=== PATIENT | female | born 1980 | race Two or more races ===

== ENCOUNTER 2021-03-27 18:23 | Emergency (ER) | payer MEDICAID, OTHER ==
[~2021-03-27] VITALS: Ht 160 cm; Wt 73.0 kg
[2021-03-27] MEDS ORDERED: SODIUM CHLORIDE 0.9% 1,000 ML IV ONE (18:30)
[2021-03-27 19:27] LABS: Urine Bacteria NONE SEEN /hpf (None Seen); Urine Blood 1+ /uL (Negative); Urine Specific Gravity 1.033 (1.001-1.035); Urine WBC 32 /hpf (0 - 5)
[2021-03-27] MEDS ORDERED: InsuLIN REG 1unit/0.01ml Soln (100units/ml) IV ONE (19:30)
[2021-03-27 22:09] LABS: Basophils # (auto) 0 10 ^3/uL (0-0.2); Basophils % (auto) 0.5 % (0.0-2.0); Eosinophils # (auto) 0.1 10 ^3/uL (0-0.8); Eosinophils % (auto) 1.6 % (0.0-7.0); Hematocrit 47.6 % (36.0-46.0); Hemoglobin 15.6 g/dL (12.2-16.2); Lymphocytes % (auto) 41.6 % (10.0-50.0); Mean Corpuscular Hemoglobin 30.3 pg (28.0-32.0); Mean Corpuscular Hgb Conc. 32.7 g/dL (32.0-36.0); Mean Corpuscular Volume 92.8 fL (80.0-100.0); Monocytes # (auto) 0.5 10 ^3/uL (0-1.3); Monocytes % (auto) 6.7 % (0.0-12.0); Neutrophils # (auto) 3.6 10 ^3/uL (1.6-8.6); Neutrophils % (auto) 49.6 % (37.0-80.0); Nucleated Red Blood Cells % 0.2 %; Red Blood Cells 5.13 10^6/uL (4.0-5.20); Red Cell Distribution Width 12.5 % (11.8-14.3); White Blood Cell 7.3 10^3/uL (4.4-10.8)
[2021-03-27 22:50] LABS: Albumin 3.9 g/dL (3.4-5.0); BUN/Creatinine Ratio 18.8; Calcium 8.6 mg/dL (8.5-10.1); Magnesium 2.3 mg/dL (1.6-2.6); Potassium 4.9 mmol/L (3.5-5.1)
[2021-03-27 22:55] LABS: Bilirubin, Total 0.7 mg/dL (0.2-1.0); Total Protein 8.1 g/dL (6.4-8.2)
[2021-03-28] MEDS ORDERED: SODIUM CHLORIDE 0.9% 1,000 ML IV ONE ×2 (00:30)
[2021-03-28 01:40] VITALS: BP 129/89
== END 2021-03-28 03:00 | disposition home or self-care (01) ==
LOC: ER 18:25
DX: E11.65 Type 2 diabetes mellitus with hyperglycemia (principal); R51.9 Headache, unspecified; R42 Dizziness and giddiness
CPT/HCPCS: 36415; 36600; 71045; 80053; 81001; 81025; 82010; 82805; 82962; 83605; 83690; 83735; 84484; 84702; 85025; 93005; 94640; 96361; 96374; 99285; J1815; J7030

== ENCOUNTER → 2024-05-03 | Outpatient (CLI) | payer MEDICAID ==
[2024-05-03 13:05] LABS: Basophils # (auto) 0 10 ^3/uL (0-0.2); Basophils % (auto) 0.7 % (0.0-2.0); Eosinophils # (auto) 0.1 10 ^3/uL (0-0.8); Eosinophils % (auto) 1.5 % (0.0-7.0); Hematocrit 44.7 % (36.0-46.0); Hemoglobin 14.9 g/dL (12.2-16.2); Lymphocytes % (auto) 30.8 % (10.0-50.0); Mean Corpuscular Hemoglobin 29.6 pg (28.0-32.0); Mean Corpuscular Hgb Conc. 33.3 g/dL (32.0-36.0); Mean Corpuscular Volume 88.9 fL (80.0-100.0); Monocytes # (auto) 0.4 10 ^3/uL (0-1.3); Monocytes % (auto) 6.2 % (0.0-12.0); Neutrophils % (auto) 60.8 % (37.0-80.0); Nucleated Red Blood Cells % 0.1 %; Platelet Count (auto) 159 10^3/uL (140-450); Red Blood Cells 5.03 10^6/uL (4.0-5.20); Red Cell Distribution Width 12.7 % (11.8-14.3); White Blood Cell 6.5 10^3/uL (4.4-10.8)
[2024-05-03 13:37] LABS: Urine Bacteria MOD /hpf (None Seen); Urine Blood 3+ /uL (Negative); Urine Clarity Turbid (Clear); Urine Color Colorless (Yellow); Urine Protein, UAD 1+ (Negative); Urine Urobilinogen Normal (Negative); Urine WBC 534 /hpf (0 - 5); Urine WBC Clumps PRESENT /hpf (None Seen); Urine pH 5.5 (5.0-9.0)
[2024-05-03 14:02] LABS: Creatinine, Urine 43.37 mg/dL (30.0-125.0)
[2024-05-03 14:05] LABS: Alanine Aminotransferase 27 U/L (7-40); Albumin 4.4 g/dL (3.2-4.8); Alkaline Phosphatase 109 U/L (46-116); Anion Gap 7 (5-15); BUN/Creatinine Ratio 13.6 (10.0-20.0); Blood Urea Nitrogen 11 mg/dL (9-23); Calcium 9.8 mg/dL (8.7-10.4); Carbon Dioxide 27 mmol/L (20-31); Chloride 102 mmol/L (98-107); Potassium 3.7 mmol/L (3.5-5.1); Triglycerides 109 mg/dL (< 150)
[2024-05-03 14:06] LABS: Aspartate Aminotransferase 13 U/L (13-40); Beta HCG, Quantitative 1.8 mIU/mL (1.5-4.2); Bilirubin, Total 0.6 mg/dL (0.2-1.0); Cholesterol 250 mg/dL (< 200); Glucose 280 mg/dL (74-106); HDL Cholesterol 70 mg/dL (40-59); LDL Cholesterol 174 mg/dL (< 100); Sodium 136 mmol/L (136-145); Total Protein 7.6 g/dL (5.7-8.2)
[2024-05-03 14:08] LABS: Follicle Stimulating Hormone 6.06 IU/L (SEE BELOW); Leuteinizing Hormone 2.9 IU/L; Prolactin 6.6 ng/mL (2.8-29.2); Thyroid Stimulating Hormone 0.94 uIU/mL (0.55-4.78)
[2024-05-03 14:09] LABS: Free T4 (Free Thyroxine) 1.22 ng/dL (0.89-1.76)
== END | disposition home or self-care (01) ==
LOC: LAB 12:47
PROVIDERS: ATTEND Student in an Organized Health Care Education/Training Program
DX: I10 Essential (primary) hypertension (principal); E11.9 Type 2 diabetes mellitus without complications; N92.6 Irregular menstruation, unspecified; E55.9 Vitamin D deficiency, unspecified; Z79.899 Other long term (current) drug therapy
CPT/HCPCS: 36415; 80053; 80061; 81001; 82043; 82274; 82306; 82570; 82670; 83001; 83002; 83036; 84146; 84403; 84439; 84443; 84702; 85025

== ENCOUNTER 2024-05-14 15:41 | Emergency (ER) | payer MEDICAID ==
[2024-05-15] MEDS ORDERED: CYA100I IM (07:00)
== END 2024-05-14 16:12 | disposition left against medical advice (07) ==
LOC: ER 15:41
DX: R10.9 Unspecified abdominal pain (principal); Z53.21 Procedure and treatment not carried out due to patient leaving prior to being seen by health care provider

== ENCOUNTER 2024-05-14 16:25 | Inpatient (IN) | payer MEDICAID ==
[~2024-05-14] VITALS: Ht 157.5 cm; Wt 70.4 kg
[2024-05-14 18:26] LABS: Basophils # (auto) 0 10 ^3/uL (0-0.2); Basophils % (auto) 0.1 % (0.0-2.0); Eosinophils # (auto) 0 10 ^3/uL (0-0.8); Hematocrit 46.7 % (36.0-46.0); Hemoglobin 15.3 g/dL (12.2-16.2); Lymphocytes # (auto) 0.4 10 ^3/uL (0.4-5.4); Lymphocytes % (auto) 2.7 % (10.0-50.0); Mean Corpuscular Hgb Conc. 32.8 g/dL (32.0-36.0); Mean Corpuscular Volume 88.4 fL (80.0-100.0); Monocytes # (auto) 0.5 10 ^3/uL (0-1.3); Monocytes % (auto) 3.3 % (0.0-12.0); Neutrophils # (auto) 12.9 10 ^3/uL (1.6-8.6); Neutrophils % (auto) 93.9 % (37.0-80.0); Nucleated Red Blood Cells % 0.1 %; Platelet Count (auto) 119 10^3/uL (140-450); Red Blood Cells 5.28 10^6/uL (4.0-5.20); Red Cell Distribution Width 12.9 % (11.8-14.3); White Blood Cell 13.7 10^3/uL (4.4-10.8)
[2024-05-14 18:36] LABS: Alanine Aminotransferase 25 U/L (7-40); Albumin 4.6 g/dL (3.2-4.8); Anion Gap 15 (5-15); Aspartate Aminotransferase 27 U/L (13-40); BUN/Creatinine Ratio 11.3 (10.0-20.0); Bilirubin, Total 1.1 mg/dL (0.2-1.0); Blood Urea Nitrogen 12 mg/dL (9-23); Calcium 9.7 mg/dL (8.7-10.4); Carbon Dioxide 21 mmol/L (20-31); Potassium 3.8 mmol/L (3.5-5.1); Total Protein 8.1 g/dL (5.7-8.2)
[2024-05-14 18:45] LABS: Alkaline Phosphatase 132 U/L (46-116); Chloride 97 mmol/L (98-107); Glucose 351 mg/dL (74-106); Sodium 133 mmol/L (136-145)
--- NOTE | 2024-05-14 20:02 | DVH ---
Exam: CT CT AB PEL WO CON-NO ORAL OR IV History: Left flank pain Comparison Study: None available at time of dictation. TECHNIQUE: Multidetector CT of the abdomen was performed from lung bases to pubic symphysis. Imaging was performed without IV contrast. Axial, coronal and sagittal multiplanar reformats were obtained fr om the axial data set by the technologist. Radiation Dose Information: CT Dose: CTDI volume is 6.29 mGy. Dose-length product is 377.02 mGy*cm FINDINGS: Evaluation of solid organs is limited due to lack of intravenous contrast use. Findings: Lung Bases: No acute or significant lung base finding. Normal heart size. No pleural or pericardial effusion. Liver: The liver is normal in size. No focal lesions. Gallbladder and Biliary Tree: Unremarkable Spleen: Unremarkable Pancreas: The pancreas is grossly normal in appearance. Adrenal Glands: Unremarkable Kidneys: 15.6 mm calculus in the left kidney with gas in the collecting system suggesting infection. 24.2 mm calculus at the ureteropelvic junction. 8-9 mm calculus in the lower pole of the left kidney . Diffuse enlargement of the left kidney. 6-7 mm calculus in the lower pole of the left kidney. Bladder: Grossly unremarkable for degree of distention. Multiple calcifications in the pelvis. Bowel: The stomach is grossly normal in appearance. Small bowel and colon are normal in caliber and d istribution. The appendix is not visualized; however, no secondary findings of acute appendicitis id entified. Ascites: Absent Lymphadenopathy: No mesenteric, retroperitoneal or periportal lymphadenopathy. Abdominal Wall and Mesentery: Unremarkable. Vasculature: The visualized abdominal aorta is normal in size and caliber. Evaluation of abdominal a nd pelvic vessels is limited due to lack of intravenous contrast. Pelvic Organs: Unremarkable Musculoskeletal: No aggressive focal bony lesions, acute fractures or dislocation. Soft tissues: Unremarkable IMPRESSION: 1. Diffusely enlarged left kidney with multiple large calculi largest is at the ureteropelvic junctio n and measures 24.2 mm. There is a 15.6 mm calculus in the midpole of the left kidney with gas in the collecting system suggesting infection. There are several other smaller calculi in the left kidney. Radiation optimization: All CT scans at this facility use at least one of these dose optimization gato hniques: automated exposure control mA and/or kV adjustment per patient size (includes targeted exam s where dose is matched to clinical indication) or iterative reconstruction.
[2024-05-14] MEDS ORDERED: SODIUM CHLORIDE 0.9% 1,000 ML IV ONE (20:30)
--- NOTE | 2024-05-14 20:49 | ED.PDOC ---
General HPI Comments 44-year-old female presents with her family members, patient has had severe left-sided flank pain since 4:00 a.m. this morning. Patient has a history of kidney stones 15 years ago, this pain feels similar. She has associated vomiting, decreased appetite, abdominal distention. She denies associated dysuria, hematuria, black or bloody stools. Pain is currently 9/10 radiates to the left lower quadrant, has been intermittent. She took some Tylenol which improved the pain slightly. Pain is worse with movement. She denies any allergies, does not take medications regularly, does not have any other significant past medical or past surgical history. She does follow with a primary care provider. 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 Family History Family History: Unknown Social History Smoker: Non-Smoker Alcohol: Denies ETOH Use Drugs: Denies Drug Use Constitutional: denies: chills, fever EENTM: denies: blurred vision Respiratory: denies: cough, shortness of breath Cardiovascular: denies: chest pain, dizzy spells Gastrointestinal: reports: abdomen distended, abdominal pain Genitourinary: reports: flank pain; denies: burning, dysuria, hematuria, vagina discharge Neurological: denies: dizziness Musculoskeletal: denies: back pain Integumetry: denies: rash All Other Systems: Reviewed and Negative Physical Exam General Appearance: Mild Distress HEENT: Head (Normocephalic, atraumatic.) Neck: Normal Respiratory: Lungs Clear Cardiovascular: No Murmur Breast Exam: Deferred Gastrointestinal: LLQ Genitalia: Deferred Pelvic: Deferred Rectal: Deferred Extremities: No pedal edema Neurologic: Alert, Other (Normal gait) Cerebellar Function: NOT DONE Reflexes: NOT DONE Skin: Normal Color, Warm Lymphatic: NOT DONE Was a procedure done? Was a procedure done?: No Differential Diagnosis Kidney stone (Female): Musculoskeletal pain, Ovarian torsion, Pyelonephritis, Renal failure, Urinary obstruction, Urolithiasis, Other Kidney stone (Male): Pancreatitis, Renal infarction X-Ray, Labs, Meds, VS Vital Signs Date Time Temp Pulse Resp B/P (MAP) Pulse Ox O2 Delivery O2 Flow Rate FiO2 05/14/24 16:30 98.9 100 22 136/88 (104) 100 Lab Test 05/14/24 18:03 Range/Units White Blood Count 13.7 H 4.4-10.8 10^3/uL Red Blood Count 5.28 H 4.0-5.20 10^6/uL Hemoglobin 15.3 12.2-16.2 g/dL Hematocrit 46.7 H 36.0-46.0 % Mean Corpuscular Volume 88.4 80.0-100.0 fL Mean Corpuscular Hemoglobin 29.0 28.0-32.0 pg Mean Corpuscular Hemoglobin Concent 32.8 32.0-36.0 g/dL Red Cell Distribution Width 12.9 11.8-14.3 % Platelet Count 119 L 140-450 10^3/uL Mean Platelet Volume 9.5 6.9-10.8 fL Neutrophils (%) (Auto) 93.9 H 37.0-80.0 % Lymphocytes (%) (Auto) 2.7 L 10.0-50.0 % Monocytes (%) (Auto) 3.3 0.0-12.0 % Eosinophils (%) (Auto) 0.0 0.0-7.0 % Basophils (%) (Auto) 0.1 0.0-2.0 % Neutrophils # (Auto) 12.9 H 1.6-8.6 10 ^3/uL Lymphocytes # (Auto) 0.4 0.4-5.4 10 ^3/uL Monocytes # (Auto) 0.5 0-1.3 10 ^3/uL Eosinophils # (Auto) 0 0-0.8 10 ^3/uL Basophils # (Auto) 0 0-0.2 10 ^3/uL Nucleated Red Blood Cells 0.1 % Sodium Level 133 L 136-145 mmol/L Potassium Level 3.8 3.5-5.1 mmol/L Chloride Level 97 L 98-107 mmol/L Carbon Dioxide Level 21 20-31 mmol/L Anion Gap 15 5-15 Blood Urea Nitrogen 12 9-23 mg/dL Creatinine 1.06 H 0.550-1.02 mg/dL Glomerular Filtration Rate Calc 66 >90 mL/min BUN/Creatinine Ratio 11.3 10.0-20.0 Serum Glucose 351 H 74-106 mg/dL Lactic Acid Level 1.9 0.4-2.0 mmol/L Calcium Level 9.7 8.7-10.4 mg/dL Total Bilirubin 1.1 H 0.2-1.0 mg/dL Aspartate Amino Transferase (AST) 27 13-40 U/L Alanine Aminotransferase (ALT) 25 7-40 U/L Alkaline Phosphatase 132 H 46-116 U/L Total Protein 8.1 5.7-8.2 g/dL Albumin 4.6 3.2-4.8 g/dL Beta HCG, Quantitative 1.5 1.5-4.2 mIU/mL Current Medications Medications (Trade) Dose Ordered Sig/Yasmine Route Start Time Stop Time Status Last Admin Ketorolac Tromethamine (Toradol Injection) 45 mg ONCE ONCE IM 05/14/24 17:45 05/14/24 17:46 DC 05/14/24 23:02 Ondansetron HCl (Zofran Po) 4 mg ONCE ONCE PO 05/14/24 17:45 05/14/24 17:46 DC 05/14/24 23:01 Tramadol HCl (Ultram) 50 mg ONCE ONCE PO 05/14/24 17:45 05/14/24 17:46 DC 05/14/24 23:01 Ceftriaxone Sodium 50 ml @ 100 mls/hr ONCE ONCE IV 05/14/24 20:30 05/14/24 20:59 DC 05/15/24 00:21 Sodium Chloride 1,000 ml @ 1,000 mls/hr Q1H ONCE IV 05/14/24 20:30 05/14/24 21:29 DC 05/15/24 00:18 Time of 1ST Reevaluation: 02:09 Reevaluation 1ST: Improved Patient Education/Counseling: Treatment, Other Family Education/Counseling: Treatment, Other Departure 1 Departure Time of Disposition: 20:47 Impression: Primary Impression: Kidney stone Additional Impressions: Urinary tract infection Intractable pain Disposition: ADMITTED INPATIENT Condition: Stable Comments 40-year-old female with multiple renal stones, 24.2 mm. There is a 15.6 mm calculus in the midpole of the left kidney with gas in the collecting system suggesting infection. Patient admitted for further treatment, evaluation and monitoring. Extensive evaluation was performed in attempt to identify or rule out: (See differential diagnosis section) The following tests were ordered, and results were reviewed by me: (See diagnostic results section) The following test were independently interpreted by me: N/A I reviewed and agreed with the following test results read by other providers: N/A I reviewed the following notes from the pt's past medical encounters: Encounter at this facility for hyperglycemia due to diabetes Additional information was gathered from interviewing the following independent historians: Patient's and son Discussion of management or test interpretation with external physician/other qualified health daycare director: Dr. Gómez Addressed an acute or chronic illness that poses a threat to life or bodily function: Nephrolithiasis with urinary tract infection Decision regarding hospitalization or escalation of hospital level of care: Risk and benefits of admission for further treatment of patient's condition was considered. Due to patient's current clinical condition, high risk of decline and poor outcome if discharged and need for further inpatient management and monitoring, patient will be admitted to the hospital. Parenteral controlled substances: Morphine IV Critical Care Note Critical Care Time?: No Stability Stability form required: ALECIA Armenta MD May 14, 2024 20:49
[2024-05-14] MEDS: ONDANSETRON ODT 4 MG TAB PO ONE (23:01)
[2024-05-14] MEDS: traMADol HCL 50 MG TAB PO ONE (23:01)
[2024-05-14] MEDS: KETOROLAC TROMETH 60MG/2ML VIAL IM ONE (23:02)
[2024-05-14] MEDS: MORPHINE SULFATE 4 MG/ML SYR/VIAL IV ONE (23:15)
[2024-05-14 23:30] VITALS: PULSE 103; RESP 19; O2SAT 93
--- NOTE | 2024-05-14 23:54 | DVHHP2 ---
History of Present Illness Reason for Visit: Kidney stones History of Present Illness The patient is a 44-year-old female with past medical history of prediabetes presented to [facility] ED with complaint of flank pain. Patient reports symptoms progressively get worse with left flank pain, rating 8/10 numeric scale, getting worse that prompted this visit. Patient was seen and evaluated in the ED, laboratory data shows elevated WBC 13.7, platelets 119, sodium 133, potassium 3.8, BUN 12, creatinine 1.06, glucose 351, hemoglobin A1c pending, AST, ALT 53, total bilirubin 1.1, hcG 1.5, blood pressure 136/88, heart rate 99, temperature 98.9 F, O2 saturation 99% on room air. Abdomen/pelvis CT revealing diffuse enlarged left kidney with multiple large calculi, largest is at the ureteropelvic junction and measures 24.2 mm; there is a 15.6 mm calculus in the midpole of the left kidney with gas in the collecting system suggesting infection. Patient was started on IV antibiotic regimen Rocephin, please see medication orders section in the computer. On my assessment, patient denied chest pain, no headache, no dizziness, no diarrhea, no nausea, no vomiting, no fever, no chills. Patient was admitted for further evaluation and medical management. Past Medical History Diabetes mellitus Past Surgical History Denies all surgeries Family History Reviewed, noncontributory to the management of this case. Past Social History The patient lives at home, denies smoking, alcohol or illicit drugs abuse. Review of Systems Constitutional: No: Fever, Chills, Sweats, Weakness, Malaise, Other Eyes: No: Pain, Vision change, Conjunctivae inflammation, Eyelid inflammation, Other, Redness ENT: No: Ear pain, Ear discharge, Nose pain, Nose discharge, Nose congestion, Mouth pain, Mouth swelling, Throat pain, Throat swelling, Other Respiratory: No: Cough, Dry, Shortness of breath, SOB with excertion, Wheezing, Hemoptysis, Pleuritic Pain, Sputum, Wheezing, Other Cardiovascular: No: Chest Pain, Palpitations, Orthopnea, Paroxysmal Noc. Dyspnea, Edema, Lt Headedness, Other Gastrointestinal: No: Nausea, Vomiting, Abdominal Pain, Diarrhea, Constipation, Melena, Hematochezia, Other Genitourinary: No Dysuria, No Frequency, No Incontinence, No Hematuria, No Retention; Other (Flank pain) Musculoskeletal: No: other, neck pain, shoulder pain, arm pain, back pain, hand pain, leg pain, foot pain Skin: No: Rash, Lesions, Jaundice, Bruising, Other Neurological: No: Weakness, Numbness, Incoordination, Change in speech, Confusion, Seizures, Other Allergies: Coded Allergies: NO KNOWN ALLERGIES (Unverified , 03/27/21) Exam Vital Signs Vital Signs Date Time Temp Pulse Resp B/P (MAP) Pulse Ox O2 Delivery O2 Flow Rate FiO2 05/14/24 16:30 98.9 100 22 136/88 (104) 100 General Appearance: Alert, Oriented X3, Cooperative, No acute distress HEENT: Atraumatic, PERRLA, EOMI, Mucous membr. moist/pink Respiratory: Clear to auscultation, Normal air movement Cardiovascular: Regular rate, Normal S1, Normal S2, No murmurs Abdominal: Normal bowel sounds, Soft, No hepatospenomegaly, No masses, Other (Reports tenderness) Extremities: No clubbing, No cyanosis, No edema, Normal pulses, No tend erness/swelling Skin: No rashes, No breakdown, No significant lesion Neuro: Normal gait, Normal speech, Strength at 5/5 X4 ext, Normal tone, Sensation intact, Cranial nerves 3-12 NL, Reflexes 2+ Psych/Mental Status: Mental status NL, Mood NL Labs/Xrays Labs Test 05/14/24 18:03 Range/Units White Blood Count 13.7 H 4.4-10.8 10^3/uL Red Blood Count 5.28 H 4.0-5.20 10^6/uL Hemoglobin 15.3 12.2-16.2 g/dL Hematocrit 46.7 H 36.0-46.0 % Mean Corpuscular Volume 88.4 80.0-100.0 fL Mean Corpuscular Hemoglobin 29.0 28.0-32.0 pg Mean Corpuscular Hemoglobin Concent 32.8 32.0-36.0 g/dL Red Cell Distribution Width 12.9 11.8-14.3 % Platelet Count 119 L 140-450 10^3/uL Mean Platelet Volume 9.5 6.9-10.8 fL Neutrophils (%) (Auto) 93.9 H 37.0-80.0 % Lymphocytes (%) (Auto) 2.7 L 10.0-50.0 % Monocytes (%) (Auto) 3.3 0.0-12.0 % Eosinophils (%) (Auto) 0.0 0.0-7.0 % Basophils (%) (Auto) 0.1 0.0-2.0 % Neutrophils # (Auto) 12.9 H 1.6-8.6 10 ^3/uL Lymphocytes # (Auto) 0.4 0.4-5.4 10 ^3/uL Monocytes # (Auto) 0.5 0-1.3 10 ^3/uL Eosinophils # (Auto) 0 0-0.8 10 ^3/uL Basophils # (Auto) 0 0-0.2 10 ^3/uL Nucleated Red Blood Cells 0.1 % Sodium Level 133 L 136-145 mmol/L Potassium Level 3.8 3.5-5.1 mmol/L Chloride Level 97 L 98-107 mmol/L Carbon Dioxide Level 21 20-31 mmol/L Anion Gap 15 5-15 Blood Urea Nitrogen 12 9-23 mg/dL Creatinine 1.06 H 0.550-1.02 mg/dL Glomerular Filtration Rate Calc 66 >90 mL/min BUN/Creatinine Ratio 11.3 10.0-20.0 Serum Glucose 351 H 74-106 mg/dL Lactic Acid Level 1.9 0.4-2.0 mmol/L Calcium Level 9.7 8.7-10.4 mg/dL Total Bilirubin 1.1 H 0.2-1.0 mg/dL Aspartate Amino Transferase (AST) 27 13-40 U/L Alanine Aminotransferase (ALT) 25 7-40 U/L Alkaline Phosphatase 132 H 46-116 U/L Total Protein 8.1 5.7-8.2 g/dL Albumin 4.6 3.2-4.8 g/dL Beta HCG, Quantitative 1.5 1.5-4.2 mIU/mL PATIENT: KRISTIAN CALLE ACCT: [id number] UNIT: [id number] : 1980 LOC: ER ROOM / BED: / AGE / SEX: 44 / F ADM STATUS: REG ER SERVICE [id number] ORDERING PHYSICIAN: ALECIA SAHNI MD PROCEDURE(s): ABPL - CT AB PEL WO CON-NO ORAL OR IV REASON: Left flank pain ORDER NUMBER(s): [id number], ACCESSION NUMBER(s): [id number] Exam: CT CT AB PEL WO CON-NO ORAL OR IV History: Left flank pain Comparison Study: None available at time of dictation. TECHNIQUE: Multidetector CT of the abdomen was performed from lung bases to pubic symphysis. Imaging was performed without IV contrast. Axial, coronal and sagittal multiplanar reformats were obtained from the axial data set by the technologist. Radiation Dose Information: CT Dose: CTDI volume is 6.29 mGy. Dose-length product is 377.02 mGy*cm FINDINGS: Evaluation of solid organs is limited due to lack of intravenous contrast use. Findings: Lung Bases: No acute or significant lung base finding. Normal heart size. No pleural or pericardial effusion. Liver: The liver is normal in size. No focal lesions. Gallbladder and Biliary Tree: Unremarkable Spleen: Unremarkable Pancreas: The pancreas is grossly normal in appearance. Adrenal Glands: Unremarkable Kidneys: 15.6 mm calculus in the left kidney with gas in the collecting system suggesting infection. 24.2 mm calculus at the ureteropelvic junction. 8-9 mm calculus in the lower pole of the left kidney. Diffuse enlargement of the left kidney. 6-7 mm calculus in the lower pole of the left kidney. Bladder: Grossly unremarkable for degree of distention. Multiple calcifications in the pelvis. Bowel: The stomach is grossly normal in appearance. Small bowel and colon are normal in caliber and distribution. The appendix is not visualized; however, no secondary findings of acute appendicitis identified. Ascites: Absent Lymphadenopathy: No mesenteric, retroperitoneal or periportal lymphadenopathy. Abdominal Wall and Mesentery: Unremarkable. Vasculature: The visualized abdominal aorta is normal in size and caliber. Evaluation of abdominal and pelvic vessels is limited due to lack of intravenous contrast. Pelvic Organs: Unremarkable Musculoskeletal: No aggressive focal bony lesions, acute fractures or dislocation. Soft tissues: Unremarkable IMPRESSION: 1. Diffusely enlarged left kidney with multiple large calculi largest is at the ureteropelvic junction and measures 24.2 mm. There is a 15.6 mm calculus in the midpole of the left kidney with gas in the collecting system suggesting infe ction. There are several other smaller calculi in the left kidney. Assessment/Plan Assessment/Plan Kidney stones Urinary tract infection Electrolyte imbalance Leukocytosis, unspecified Diabetes mellitus with hyperglycemia Plan 1. Admit to med surge unit 2. Breathing treatment 3. Pain control management 4. IV antibiotic management 5. Management of fluids and electrolytes 6. Consultation for Urology 7. Diagnostic test abdomen/pelvis CT 8. DVT prophylaxis-on SCDs 9. Repeat labs CBC, CMP in a.m. 10. Home medication reviewed and reconciled 11. Continue with current medical management 12. Treatment plan discussed with patient and RN. Patient verbalized understanding. Plan discussed with: Patient, Other (RN) Problem List: (1) Kidney stone (2) Leukocytosis, unspecified (3) Urinary tract infection (4) Electrolyte imbalance (5) Diabetes mellitus with hyperglycemia Date of Service: May 14, 2024 Billing Provider: KWAME CLEMONS DNP Common Visit Codes: [id number] INP/OBS CARE (MOD) KWAME CLEMONS DNP May 14, 2024 23:54
[2024-05-15] VITALS (7 sets, daily range): BP systolic 95–126; BP diastolic 56–82; PULSE 111–124; RESP 14–17; TEMP 97.7–102; O2SAT 93–100
[2024-05-15] MEDS ORDERED: MORPHINE SULFATE INJ 2 MG/ml SYRG IV PRN
[2024-05-15] MEDS ORDERED: NITROGLYCERIN 0.4 MG SL TAB SL PRN
[2024-05-15] MEDS ORDERED: ONDANSETRON HCL 4 MG/2 ML VIAL IV PRN
[2024-05-15] MEDS: SODIUM CHLORIDE 0.9% 1,000 ML IV ONE (00:18)
[2024-05-15] MEDS: cefTRIAXone 1GM/50ML D5W 50 ML IV ONE (00:21)
[2024-05-15] MEDS: MORPHINE SULFATE INJ 2 MG/ml SYRG IV PRN (00:23)
[2024-05-15] MEDS ORDERED: DEXTROSE (50%) 50ML SYRG IV PRN ×2 (00:30→17:45)
[2024-05-15] MEDS: SODIUM CHLORIDE 0.9% 1,000 ML IV SCH ×3 (01:46→17:52)
[2024-05-15] MEDS: ACETAMINOPHEN 325 MG TAB PO PRN (04:20)
[2024-05-15] MEDS: InsuLIN REG 1unit/0.01ml Soln (100units/ml) SC SCH ×2 (04:39→20:13)
[2024-05-15] MEDS: ACCU-CHEK COMFORT CURVE STRIP VI SCH ×2 (04:39→20:07)
[2024-05-15 04:54] LABS: Basophils # (auto) 0 10 ^3/uL (0-0.2); Basophils % (auto) 0.1 % (0.0-2.0); Eosinophils # (auto) 0 10 ^3/uL (0-0.8); Eosinophils % (auto) 0.1 % (0.0-7.0); Hematocrit 40.6 % (36.0-46.0); Hemoglobin 13.4 g/dL (12.2-16.2); Lymphocytes # (auto) 0.2 10 ^3/uL (0.4-5.4); Lymphocytes % (auto) 3.9 % (10.0-50.0); Mean Corpuscular Hemoglobin 29.4 pg (28.0-32.0); Mean Corpuscular Hgb Conc. 33.1 g/dL (32.0-36.0); Mean Corpuscular Volume 88.8 fL (80.0-100.0); Monocytes # (auto) 0 10 ^3/uL (0-1.3); Monocytes % (auto) 0.8 % (0.0-12.0); Neutrophils # (auto) 5.7 10 ^3/uL (1.6-8.6); Neutrophils % (auto) 95.1 % (37.0-80.0); Platelet Count (auto) 91 10^3/uL (140-450); Red Blood Cells 4.57 10^6/uL (4.0-5.20); Red Cell Distribution Width 13.1 % (11.8-14.3)
[2024-05-15 05:11] LABS: Alanine Aminotransferase 20 U/L (7-40); Albumin 3.7 g/dL (3.2-4.8); Alkaline Phosphatase 103 U/L (46-116); Anion Gap 15 (5-15); Aspartate Aminotransferase 16 U/L (13-40); BUN/Creatinine Ratio 10.2 (10.0-20.0); Bilirubin, Total 0.8 mg/dL (0.2-1.0); Blood Urea Nitrogen 11 mg/dL (9-23); Chloride 102 mmol/L (98-107); Total Protein 6.4 g/dL (5.7-8.2)
[2024-05-15 05:14] LABS: Calcium 8.6 mg/dL (8.7-10.4); Carbon Dioxide 16 mmol/L (20-31); Glucose 357 mg/dL (74-106); Sodium 133 mmol/L (136-145)
[2024-05-15] MEDS ORDERED: CYA100I IM (07:00)
[2024-05-15] MEDS: HYDROcodone-ACET 5/325MG TAB PO PRN (07:57)
[2024-05-15] MEDS: cefTRIAXone 1GM/50ML D5W 50 ML IV SCH (08:30)
[2024-05-15 11:20] LABS: Urine Bacteria None Seen /hpf (None Seen)
[2024-05-15 11:34] LABS: Protein, Urine 66.3 mg/dL (1-14)
[2024-05-15 11:37] LABS: Creatinine, Urine 67.33 mg/dL (30.0-125.0); Urine Protein/Creatinine Ratio 0.98
[2024-05-15 11:42] LABS: Urine Blood 2+ /uL (Negative); Urine Clarity Clear (Clear); Urine Color Light-Yellow (Yellow); Urine Mucus FEW (None Seen); Urine Protein, UAD 1+ (Negative); Urine Specific Gravity 1.039 (1.001-1.035); Urine Urobilinogen Normal (Negative); Urine WBC 50 /hpf (0 - 5); Urine pH 5.5 (5.0-9.0)
--- NOTE | 2024-05-15 16:50 | DVHPNRES ---
Progress Note Date Seen: May 15, 2024 Resident Creating Document: JHXAVI MIMSDINESHDAIANA RESIDENT Medical Necessity Reason Pt with a Central, PICC or Fol: No Subjective Review of Systems Patient is a 44 year old male with a past medical history as described below came to the ED with the chief complaint of Abdominal pain for 1 day prior to admission. Patient reports that thursday morning she had to wake up early in the morning due to sudden onset left sided flank pain which was colicky, intermittant in nature and 10/10 on intensity when the pain occurred. she tried over the counter medication for pain during the day but could not manage following which she came to the hospital for further evaluation. On admission patient had elevated white count, tachycardia. Patient reported 2-3 episodes of vomiting associated with severe pain while she was in the ER. Past medical history: T2DM Past surgical history: none reported Social history: lives with family and denies smoking, drugs, alcohol use Home medications: Takes oral medication for high blood sugar but does not remember the name Review of systems Patient is seen and examined at the bedside Alert and oriented X 4. Reports mild-moderate flank pain, but has intermittant episodes of severe colicky pain asso. with nausea patient has been having fever upto 102F No dysuria, no increased frequency. Has left CVA tenderness. Objective vital signs Vital Sign Date Time Temp Pulse Resp B/P (MAP) Pulse Ox O2 Delivery O2 Flow Rate FiO2 05/15/24 15:48 120 16 117/70 05/15/24 15:42 102.0 05/15/24 13:00 100 05/15/24 08:10 Room Air* 0 21 Total Intake and Output 05/14/24 05/14/24 05/15/24 15:00 23:00 07:00 Intake Total 50 ml Balance 50 ml medications Current Medications Medications Dose Ordered Sig/Yasmine Route Start Time Stop Time Status Last Admin Dose Admin Ceftriaxone Sodium 50 ml @ 100 mls/hr DAILY@09 IV 05/15/24 09:00 05/15/24 08:30 100 MLS/HR Acetaminophen/ Hydrocodone Bitart 1 tab Q4HP PRN PO 05/15/24 00:00 05/15/24 15:16 1 TAB Ondansetron HCl 4 mg Q4HP PRN IV 05/15/24 00:00 Docusate Sodium 100 mg BIDPRN PRN PO 05/15/24 00:00 Acetaminophen 650 mg Q6HP PRN PO 05/15/24 00:00 05/15/24 15:42 650 MG Morphine Sulfate 2 mg Q4HPRN PRN IV 05/15/24 00:00 05/15/24 15:48 2 MG Nitroglycerin 0.4 mg Q5MINP PRN SL 05/15/24 00:00 Morphine Sulfate 2 mg Q30M PRN IV 05/15/24 00:00 Diagnostic Test (Pha) 1 strip IQ4HR 05/15/24 04:00 05/15/24 11:36 1 STRIP Insulin Human Regular IQ4HR SC 05/15/24 04:00 05/15/24 11:38 9 UNITS Dextrose 50 ml UD PRN IV 05/15/24 00:30 Sodium Chloride 1,000 ml @ 100 mls/hr Q10H IV 05/15/24 11:15 05/15/24 11:36 100 MLS/HR Insulin Glargine 15 units HS SC 05/15/24 22:00 Examination Physical Examination Gen - no pallor, no icterus, no cyanosis, no clubbing, no LAD, no edema Skin - Patients skin is warm and dry. HEENT - normocephalic, atraumatic, dry mucous membranes. Neck - full ROM, no LAD, no JVD Pulmonary - B/L vesicular breath sounds , no crackles, no wheezing. cardiovascular - normal S1,S2 heard. no murmurs heard. peripheral pulses normal radial 2+, pedal 2+. GI - soft abdomen. no tenderness. no hepato-spleenomegaly. Bowel sounds normoactive Neurological - Patient is A/O X 3. Bilateral upper extremity strength 5/5, bilateral lower extremity strength 5/5, no facial droop, normal speech, no tremor, no sensory deficits laboratory and microbiology Laboratory Tests 05/15/24 04:11 Test 05/15/24 04:11 Range/Units Serum Glucose 357 H 74-106 mg/dL Problem List/Assessment/Plan Problem List/Assessment/Plan Assessment and Plan # Sepsis likely d/t UTI # UTI with ?Acute pyelonephritis # Left Renal and UVJ stones - urinalysis shows increased urine WBC, non bacteria seen although - CT abdomen pelvis shows 15.6 mm calculus in the left kidney with gas in the collecting system suggesting infection. 24.2 mm calculus at the ureteropelvic junction. 8-9 mm calculus in the lower pole of the left kidney. Diffuse enlargement of the left kidney. 6-7 mm calculus in the lower pole of the left kidney - Urine blood culture pending - blood culture pending - On IV fluids - ceftriaxone 1g IV daily - urology consult pending - on pain control with morphine and norco # Uncontrolled T2DM with hyperglycemia ?DKA - patient A/O X 4 - BMP shows acidosis with borderline high anion gap - elevated betahydroxybutyrate - On insulin lantus 15 U HS - aggressive sliding scale # KEITH likely prerenal d/t dehydration - FeNa - 0.1% - on IV fluids - renal US shows 1.Right kidney measures 12.52 cm. There is no hydronephrosis. 2. Left kidney measures 14.85 cm. There are multiple nonobstructing calculi in the left Goals of care discussed with the patient for over 31 mins. Full code Plan discussed with Plan discussed with: Patient, Spouse, Daughter My Orders My Orders Orders - JACOB RAMÍREZ Procedure Category Date Status Time Osmolality Urine LAB 05/15/24 Logged 10:30 Osmolality, Serum LAB 05/15/24 Logged 10:41 Consistent DIET 05/15/24 Transmitted Carb(Ccho)Diabetes Lunch Sodium Chloride 0.9% PHA 05/15/24 In Process 11:15 Insulin Lantus PHA 05/15/24 In Process (Glargine) (Lantus) 22:00 Date of Service: May 15, 2024 Billing Provider: CLARY LOPEZ MD Common Visit Codes: [id number] INP/OBS CARE(HIGH) JACOB RAMÍREZ RESIDENT May 15, 2024 16:50 CLARY LOPEZ MD May 15, 2024 23:57
[2024-05-15 18:29] LABS: Base Excess 4.9 mmol/L (-2.0-3.0)
--- NOTE | 2024-05-15 19:04 | DVH ---
US KIDNEY left renal calculi HISTORY: left kidney and left UVJ stone, left hydronephrosis COMPARISON: None TECHNIQUE: Transverse and longitudinal grayscale and color Doppler images were obtained of the kidney s and bladder. FINDINGS: Right kidney: Size: 12.52 cm Cortical thickness: Normal Echogenicity: Normal Stones: None Masses: None Hydronephrosis: None Ureters: Not well visualized. Other: None Left kidney: Size: 14.85 cm Cortical thickness: Normal Echogenicity: Normal Stones: 1.88 x 0.8 by 1.89 cm located in the midpole of the left kidney. Punctate nonobstructing 0.7 8 cm calculus in the left kidney. There are multiple other calculi noted on the left. There is a 19 mm calculus in the midpole. There is a 13 mm calculus in the upper pole.Masses: None Hydronephrosis: No hydronephrosis Ureters: Not well visualized. Other: None Bladder: Normal Other: None. IMPRESSION: 1. .Right kidney measures 12.52 cm. There is no hydronephrosis. 2. Left kidney measures 14.85 cm. There are multiple nonobstructing calculi in the left.
[2024-05-15 19:12] LABS: Chloride 100 mmol/L (98-107); Potassium 4.2 mmol/L (3.5-5.1)
[2024-05-15 19:13] LABS: Anion Gap 7 (5-15); Carbon Dioxide 21 mmol/L (20-31)
[2024-05-15 19:14] LABS: Calcium 8.4 mg/dL (8.7-10.4); Sodium 128 mmol/L (136-145)
[2024-05-15 19:18] LABS: BUN/Creatinine Ratio 11.9 (10.0-20.0); Blood Urea Nitrogen 15 mg/dL (9-23)
[2024-05-15 19:24] LABS: Glucose 299 mg/dL (74-106)
[2024-05-15] MEDS ORDERED: MORPHINE SULFATE INJ 2 MG/ml SYRG IV ONE (21:15)
[2024-05-15] MEDS: INSULIN LANTUS (GLARGINE) 1 /0.01ml (100units/ml) SC SCH (22:00)
[2024-05-16] VITALS (7 sets, daily range): BP systolic 84–102; BP diastolic 52–64; PULSE 98–117; RESP 16–20; TEMP 98–102.9; O2SAT 96–98
[2024-05-16 06:36] LABS: Basophils # (auto) 0 10 ^3/uL (0-0.2); Eosinophils # (auto) 0 10 ^3/uL (0-0.8); Mean Corpuscular Hemoglobin 29.8 pg (28.0-32.0); Mean Corpuscular Hgb Conc. 34.2 g/dL (32.0-36.0); Monocytes # (auto) 0.4 10 ^3/uL (0-1.3)
[2024-05-16 06:38] LABS: Basophils % (auto) 0.2 % (0.0-2.0); Eosinophils % (auto) 0.2 % (0.0-7.0); Hematocrit 32.7 % (36.0-46.0); Hemoglobin 11.2 g/dL (12.2-16.2); Lymphocytes # (auto) 0.5 10 ^3/uL (0.4-5.4); Lymphocytes % (auto) 8.4 % (10.0-50.0); Mean Corpuscular Volume 87.1 fL (80.0-100.0); Monocytes % (auto) 6.7 % (0.0-12.0); Neutrophils # (auto) 5.1 10 ^3/uL (1.6-8.6); Neutrophils % (auto) 84.5 % (37.0-80.0); Platelet Count (auto) 57 10^3/uL (140-450); Red Blood Cells 3.76 10^6/uL (4.0-5.20); Red Cell Distribution Width 12.5 % (11.8-14.3); White Blood Cell 6.1 10^3/uL (4.4-10.8)
[2024-05-16 06:44] LABS: Chloride 105 mmol/L (98-107)
[2024-05-16 06:45] LABS: Anion Gap 8 (5-15)
[2024-05-16 06:48] LABS: Calcium 8.3 mg/dL (8.7-10.4); Carbon Dioxide 20 mmol/L (20-31); Potassium 2.9 mmol/L (3.5-5.1); Sodium 133 mmol/L (136-145)
[2024-05-16 06:50] LABS: BUN/Creatinine Ratio 19.1 (10.0-20.0); Blood Urea Nitrogen 17 mg/dL (9-23)
[2024-05-16 06:52] LABS: Glucose 152 mg/dL (74-106)
[2024-05-16] MEDS: POTASSIUM CHL 20MEQ/100ML 100 ML IV SCH (09:15)
[2024-05-16] MEDS: POTASSIUM EFFERVESENT TAB 25 MEQ GT ONE (09:15)
[2024-05-16] MEDS: LACTATED RINGER'S 1,500 ML IV ONE (10:00)
[2024-05-16] MEDS ORDERED: VANCOMYCIN PER PHARMACY 0 MG IV SCH (10:00)
[2024-05-16] MEDS ORDERED: PIPERACILLIN-TAZOB 3.375GM 100 ML IV SCH (10:00)
[2024-05-16] MEDS: VANCOMYCIN 1GM/250mL NS or D5W KIT IV ONE (10:30)
[2024-05-16] MEDS: POTASSIUM EFFERVESENT TAB 25 MEQ PO ONE (10:45)
[2024-05-16] MEDS: TAMSULOSIN HYDROCHLORIDE 0.4 MG CAP PO ONE (12:03)
[2024-05-16] MEDS: MAGNESIUM SULFATE 1GM/100ML 100 ML IV ONE ×2 (12:30→21:40)
--- NOTE | 2024-05-16 13:32 | DVHINCON2 ---
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 CT shows a large staghorn and 2 other large calculi within the left kidney and UPJ. There is a small collection of air in the kidney no overt hydronephrosis. She is seen in [facility]4 eating lunch. she reports she is feeling better but is still having a fever. Home Meds Reported Medications Vitamin B12 (Vitamin B-12) 1,000 Mcg/1 Ml Ij, 1000 MCG IM, INJ 05/15/24 Past Medical History Patient Family History: Patient reports no known family medical history. Review of Systems Constitutional: Fever Genitourinary: Pain H&P Exam Vital Signs Vital Signs Date Time Temp Pulse Resp B/P (MAP) Pulse Ox O2 Delivery O2 Flow Rate FiO2 05/16/24 12:16 100.7 05/16/24 09:00 99 20 89/60 (70) 98 05/15/24 20:00 Room Air* 0 21 General Appeara: Well developed, Well nourished, Normal Appearance Pulmonary/Respiratory: Normal inspection, Normal breath sounds, Chest non-tend er, Lungs clear Cardiovascular/Chest: Normal inspection, Regular rate, Normal Rhythm Abdominal Exam: Normal bowel sounds, Soft, No tenderness, No hepatospenomegaly, No masses Rectal Exam: Deferred Back Exam: Left CVA tenderness Neuro/Mental St: Alert, Oriented Appearance: Appropriate appearance, Appropriate insight Eye contact/ Speech: Cooperative, Good eye contact, Normal speech Skin Exam: Normal inspection, Normal color, Warm/dry Labs/Xrays [place] [address] Ph: [phone] DIAGNOSTIC IMAGING Diagnostic Imaging Report : [id number] Signed PATIENT: KRISTIAN CALLE ACCT: [id number] UNIT: [id number] : 1980 LOC: [facility] ROOM / BED: 0244ADS / 4 AGE / SEX: 44 / F ADM STATUS: ADM IN SERVICE 03 ORDERING PHYSICIAN: JACOB RAMÍREZ RESIDENT PROCEDURE(s): KIDUS - KIDNEY REASON: left kidney and left UVJ stone, ? left hydronephrosis ORDER NUMBER(s): [id number], ACCESSION NUMBER(s): [id number] US KIDNEY left renal calculi HISTORY: left kidney and left UVJ stone, left hydronephrosis COMPARISON: None TECHNIQUE: Transverse and longitudinal grayscale and color Doppler images were o btained of the kidneys and bladder. FINDINGS: Right kidney: Size: 12.52 cm Cortical thickness: Normal Echogenicity: Normal Stones: None Masses: None Hydronephrosis: None Ureters: Not well visualized. Other: None Left kidney: Size: 14.85 cm Cortical thickness: Normal Echogenicity: Normal Stones: 1.88 x 0.8 by 1.89 cm located in the midpole of the left kidney. Puncta te nonobstructing 0.78 cm calculus in the left kidney. There are multiple other calculi noted on the left. There is a 19 mm calculus in the midpole. There is a 13 mm calculus in the upper pole.Masses: None Hydronephrosis: No hydronephrosis Ureters: Not well visualized. Other: None Bladder: Normal Other: None. IMPRESSION: 1. .Right kidney measures 12.52 cm. There is no hydronephrosis. 2. Left kidney measures 14.85 cm. There are multiple nonobstructing calculi in the left. ATED BY: YUSUF DUARTE Jr., DO DICTATED DATE/TIME: 05/15/241900 SIGNED BY: YUSUF DUARTE Jr., DO SIGNED DATE/TIME: 05/15/241900 CC: [place] [address] Ph: [phone] DIAGNOSTIC IMAGING Diagnostic Imaging Report : [id number] Signed PATIENT: KRISTIAN CALLE ACCT: [id number] UNIT: [id number] : 1980 LOC: ER ROOM / BED: / AGE / SEX: 44 / F ADM STATUS: REG ER SERVICE 1731 ORDERING PHYSICIAN: ALECIA SAHNI MD PROCEDURE(s): ABPL - CT AB PEL WO CON-NO ORAL OR IV REASON: Left flank pain ORDER NUMBER(s): [id number], ACCESSION NUMBER(s): [id number] Exam: CT CT AB PEL WO CON-NO ORAL OR IV History: Left flank pain Comparison Study: None available at time of dictation. TECHNIQUE: Multidetector CT of the abdomen was performed from lung bases to pubic symphysis. Imaging was performed without IV contrast. Axial, coronal and sagittal multiplanar reformats were obtained from the axial data set by the technologist. Radiation Dose Information: CT Dose: CTDI volume is 6.29 mGy. Dose-length product is 377.02 mGy*cm FINDINGS: Evaluation of solid organs is limited due to lack of intravenous contrast use. Findings: Lung Bases: No acute or significant lung base finding. Normal heart size. No pleural or pericardial effusion. Liver: The liver is normal in size. No focal lesions. Gallbladder and Biliary Tree: Unremarkable Spleen: Unremarkable Pancreas: The pancreas is grossly normal in appearance. Adrenal Glands: Unremarkable Kidneys: 15.6 mm calculus in the left kidney with gas in the collecting system suggesting infection. 24.2 mm calculus at the ureteropelvic junction. 8-9 mm calculus in the lower pole of the left kidney. Diffuse enlargement of the left kidney. 6-7 mm calculus in the lower pole of the left kidney. Bladder: Grossly unremarkable for degree of distention. Multiple calcifications in the pelvis. Bowel: The stomach is grossly normal in appearance. Small bowel and colon are normal in caliber and distribution. The appendix is not visualized; however, no secondary findings of acute appendicitis identified. Ascites: Absent Lymphadenopathy: No mesenteric, retroperitoneal or periportal lymphadenopathy. Abdominal Wall and Mesentery: Unremarkable. Vasculature: The visualized abdominal aorta is normal in size and caliber. Evaluation of abdominal and pelvic vessels is limited due to lack of intravenous contrast. Pelvic Organs: Unremarkable Musculoskeletal: No aggressive focal bony lesions, acute fractures or dislocation. Soft tissues: Unremarkable IMPRESSION: 1. Diffusely enlarged left kidney with multiple large calculi largest is at the ureteropelvic junction and measures 24.2 mm. There is a 15.6 mm calculus in the midpole of the left kidney with gas in the collecting system suggesting infection. There are several other smaller calculi in the left kidney. Radiation optimization: All CT scans at this facility use at least one of these dose optimization techniques: automated exposure control mA and/or kV adjustme nt per patient size (includes targeted exams where dose is matched to clinical indication) or iterative reconstruction. ATED BY: YUSUF DUARTE Jr., DO DICTATED DATE/TIME: 05/14/241958 SIGNED BY: YUSUF DUARTE Jr., SIGNED DATE/TIME: 05/14/241958 CC: Labs Test 05/16/24 12:49 05/16/24 11:00 05/16/24 05:52 05/15/24 18:35 Range/Units POC Glucose 226 H 70-106 mg/dl Lactic Acid Level 1.0 0.4-2.0 mmol/L White Blood Count 6.1 4.4-10.8 10^3/uL Red Blood Count 3.76 L 4.0-5.20 10^6/uL Hemoglobin 11.2 #L 12.2-16.2 g/dL Hematocrit 32.7 #L 36.0-46.0 % Mean Corpuscular Volume 87.1 80.0-100.0 fL Mean Corpuscular Hemoglobin 29.8 28.0-32.0 pg Mean Corpuscular Hemoglobin Concent 34.2 32.0-36.0 g/dL Red Cell Distribution Width 12.5 11.8-14.3 % Platelet Count 57 L 140-450 10^3/uL Mean Platelet Volume 10.0 6.9-10.8 fL Neutrophils (%) (Auto) 84.5 H 37.0-80.0 % Lymphocytes (%) (Auto) 8.4 L 10.0-50.0 % Monocytes (%) (Auto) 6.7 0.0-12.0 % Eosinophils (%) (Auto) 0.2 0.0-7.0 % Basophils (%) (Auto) 0.2 0.0-2.0 % Neutrophils # (Auto) 5.1 1.6-8.6 10 ^3/uL Lymphocytes # (Auto) 0.5 0.4-5.4 10 ^3/uL Monocytes # (Auto) 0.4 0-1.3 10 ^3/uL Eosinophils # (Auto) 0 0-0.8 10 ^3/uL Basophils # (Auto) 0 0-0.2 10 ^3/uL Nucleated Red Blood Cells 0.0 % Sodium Level 133 #L 136-145 mmol/L Potassium Level 2.9 L 3.5-5.1 mmol/L Chloride Level 105 98-107 mmol/L Carbon Dioxide Level 20 20-31 mmol/L Anion Gap 8 5-15 Blood Urea Nitrogen 17 9-23 mg/dL Creatinine 0.89 0.550-1.02 mg/dL Glomerular Filtration Rate Calc 81 >90 mL/min BUN/Creatinine Ratio 19.1 10.0-20.0 Serum Glucose 152 H 74-106 mg/dL Calcium Level 8.3 L 8.7-10.4 mg/dL Phosphorus Level 1.6 L 2.4-5.1 mg/dL Magnesium Level 1.8 1.6-2.6 mg/dL Beta-Hydroxybutyric Acid 0.566 H < 0.4 mmol/L Serum Osmolality 278 278-298 mOsm/kg Test 05/15/24 18:23 05/15/24 11:00 05/15/24 04:11 05/14/24 18:03 Range/Units Blood Gas Specimen Type Arterial Blood Gas Sample Site Right radial Blood Gas Patient Temperature 37.0 Arterial Blood Date Drawn [id number] Arterial Blood pH 7.477 H 7.350-7.450 Arterial Blood Partial Pressure CO2 39.9 32.0-45.0 mmHg Arterial Blood Partial Pressure O2 99.8 83.0-108.0 mmHg Arterial Blood HCO3 28.8 H 21.0-28.0 mmol/L Arterial Blood Oxygen Saturation 97.1 94.0-98.0 % Arterial Blood Base Excess 4.9 H -2.0-3.0 mmol/L Arterial Blood Oxyhemoglobin 91.8 L 94.0-98.0 % Arterial Blood Carboxyhemoglobin 4.8 H 0.5-1.5 % Arterial Blood Methemoglobin 0.7 0.0-1.5 % Yonny Test Yes Blood Gas Total Hemoglobin 7.90 L 12.0-16.0 g/dL Blood Gas Liter Flow 2.00 Blood Gas Modality Nasal cannula FiO2 % 28.0 Urine Color Light-yellow Yellow Urine Clarity Clear Clear Urine pH 5.5 5.0-9.0 Urine Specific Nordman 1.039 H 1.001-1.035 Urine Protein 1+ H Negative Urine Ketones 1+ H Negative Urine Blood 2+ H Negative /uL Urine Nitrite Negative Negative Urine Bilirubin Negative Negative Urine Urobilinogen Normal Negative mg/dL Urine Leukocyte Esterase Trace Negative /uL Urine RBC 29 0 - 4 /hpf Urine WBC 50 0 - 5 /hpf Urine Squamous Epithelial Cells Few <5 /hpf Urine Bacteria None seen None Seen /hpf Urine Mucus Few None Seen Urine Creatinine 67.33 30.0-125.0 mg/dL Urine Protein/Creatinine Ratio 0.98 Urine Sodium < 10 L 40-220 mmol/L Urine Glucose 4+ H Normal mg/dL Urine Total Protein 66.3 H 1-14 mg/dL Total Bilirubin 0.8 0.2-1.0 mg/dL Aspartate Amino Transferase (AST) 16 13-40 U/L Alanine Aminotransferase (ALT) 20 7-40 U/L Alkaline Phosphatase 103 46-116 U/L Total Protein 6.4 5.7-8.2 g/dL Albumin 3.7 3.2-4.8 g/dL Beta HCG, Quantitative 1.5 1.5-4.2 mIU/mL Microbiology Date/Time Source Procedure Growth Status 05/14/24 23:49 Voided Urine Urine Culture - Preliminary Resulted Assessment/Plan Problem List: (1) Hyperglycemia due to diabetes mellitus (2) Leukocytosis, unspecified (3) Electrolyte imbalance (4) Urinary tract infection (5) Kidney stone Plan IVFs, encourage PO hydration replete electrolytes broad spectrum abx - ID consult diabetes management NPO after midnight consult IR for possible left PCN placement to aid in source control and clearance of infection. akers to gravity for clearance of infection will need outpatient PCNL arranged after resolution of infection. 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
[2024-05-16] MEDS: PIPERACILLIN-TAZOB 3.375GM 100 ML IV SCH (15:24)
--- NOTE | 2024-05-16 15:52 | DVHPNRES ---
Progress Note Date Seen: May 16, 2024 Resident Creating Document: GOLDY MATA RESDIENT Medical Necessity Reason Pt with a Central, PICC or Fol: No Subjective Review of Systems Patient is a 44 year old male with a past medical history as described below came to the ED with the chief complaint of Abdominal pain for 1 day prior to admission. Patient reports that thursday morning she had to wake up early in the morning due to sudden onset left sided flank pain which was colicky, intermittant in nature and 10/10 on intensity when the pain occurred. she tried over the counter medication for pain during the day but could not manage following which she came to the hospital for further evaluation. On admission patient had elevated white count, tachycardia. Patient reported 2-3 episodes of vomiting associated with severe pain while she was in the ER. Past medical history: T2DM Past surgical history: none reported Social history: lives with family and denies smoking, drugs, alcohol use Home medications: Takes oral medication for high blood sugar but does not remember the name Today, 05/16, the patient seen and examined at the bedside. Patient is still complaining of abdominal pain, with fever. Objective vital signs Vital Sign Date Time Temp Pulse Resp B/P (MAP) Pulse Ox O2 Delivery O2 Flow Rate FiO2 05/16/24 13:00 100.7 110 18 100/62 (75) 96 100.7 05/15/24 20:00 Room Air* 0 21 Total Intake and Output 05/15/24 05/15/24 05/16/24 15:00 23:00 07:00 Intake Total 50 ml 1940 ml 400 ml Balance 50 ml 1940 ml 400 ml medications Current Medications Medications Dose Ordered Sig/Yasmine Route Start Time Stop Time Status Last Admin Dose Admin Acetaminophen/ Hydrocodone Bitart 1 tab Q4HP PRN PO 05/15/24 00:00 05/16/24 13:56 1 TAB Ondansetron HCl 4 mg Q4HP PRN IV 05/15/24 00:00 Docusate Sodium 100 mg BIDPRN PRN PO 05/15/24 00:00 Acetaminophen 650 mg Q6HP PRN PO 05/15/24 00:00 05/16/24 12:16 650 MG Morphine Sulfate 2 mg Q4HPRN PRN IV 05/15/24 00:00 05/15/24 15:48 2 MG Nitroglycerin 0.4 mg Q5MINP PRN SL 05/15/24 00:00 Morphine Sulfate 2 mg Q30M PRN IV 05/15/24 00:00 Insulin Glargine 15 units HS SC 05/15/24 22:00 05/15/24 22:00 15 UNITS Sodium Chloride 1,000 ml @ 150 mls/hr Q6H40M IV 05/15/24 17:45 05/16/24 00:25 150 MLS/HR Diagnostic Test (Pha) 1 strip IQ4HR 05/15/24 20:00 05/16/24 12:00 1 STRIP Insulin Human Regular IQ4HR SC 05/15/24 20:00 05/16/24 12:00 8 UNITS Dextrose 50 ml UD PRN IV 05/15/24 17:45 Tamsulosin HCl 0.4 mg QPM PO 05/16/24 18:00 Vancomycin HCl 0 ml @ 0 mls/hr UD IV 05/16/24 10:00 Vancomycin HCl 100 ml @ 100 mls/hr Q12H IV 05/17/24 07:00 Hydrocortisone Sodium Succinate 50 mg Q6HR IV 05/16/24 18:00 Piperacillin Sod/ Tazobactam Sod 100 ml @ 25 mls/hr Q8H IV 05/16/24 15:30 05/16/24 15:24 25 MLS/HR Examination General Appearance: Alert, Oriented X3, Cooperative, No acute distress HEENT: Atraumatic, PERRLA, EOMI, Mucous membrane moist/pink Respiratory: Clear to auscultation, Normal air movement Cardiovascular: Regular rate, Normal S1, Normal S2, No murmurs, no chest wall tenderness Abdominal: Mild abdominal tenderness Extremities: No clubbing, No cyanosis, No edema, Normal pulses, No tenderness/swelling Skin: No rashes, No breakdown, No significant lesion Neuro: Normal gait, Normal speech, Strength at 5/5 X4 ext, Normal tone, Sensation intact, Cranial nerves 3-12 NL, Reflexes 2+ Psych/Mental Status: Mental status NL, Mood NL laboratory and microbiology Laboratory Tests 05/16/24 05:52 Test 05/16/24 05:52 Range/Units Serum Glucose 152 H 74-106 mg/dL Microbiology Date/Time Source Procedure Growth Status 05/14/24 23:49 Voided Urine Urine Culture - Preliminary Resulted Labs and/or images reviewed: Labs reviewed by me, Image(s) reviewed by me Problem List/Assessment/Plan Problem List/Assessment/Plan This is a 44-year-old female with past medical history of renal stone (10 years back) and diabetes mellitus (does not take medicine due to hair fall as per patient), presented to the hospital because of the left-sided flank pain, vomiting and fever since today. Admitted on 05/14. Septic shock likely due to sepsis Sepsis likely d/t UTI UTI , likely Acute pyelonephritis Multiple Left Renal with superimposed infection, pyelonephritis Urine and blood culture from 05/14 shows no growth Renal ultrasound shows Left kidney measures 14.85 cm. There are multiple nonobstructing calculi in the left with no hydronephrosis urinalysis shows increased urine WBC, non bacteria seen although CT abdomen pelvis shows 15.6 mm calculus in the left kidney with gas in the collecting system suggesting infection. 24.2 mm calculus at the ureteropelvic junction. 8-9 mm calculus in the lower pole of the left kidney. Diffuse enlargement of the left kidney. 6-7 mm calculus in the lower pole of the left kidney Urology on the board, recommended PCN by Radiology, and follow up on outpatient basis for the PCNL Radiology on the board, planned for the PCN for tomorrow morning Urine blood culture pending blood culture pending Continue IV fluids 150 mL/hour Hydrocortisone 50 mg q.i.d. Continue vancomycin and Zosyn Continue tamsulosin 0.4 mg daily Uncontrolled T2DM with hyperglycemia Ruled out DKA Hb A1c, 14 On insulin lantus 15 U HS aggressive sliding scale KEITH likely hemodynamically mediated, improved Continue IV fluid Mild hyponatremia Monitoring Moderate hypokalemia Supplemented Hypomagnesemia Supplemented Hypo phosphatamia Monitoring DIET: NPO, for tomorrow PCN DVT prophylax: On no anticoagulant for tomorrow PCN GI prophylaxis: No indication of PPI Bowel regimen: Docusate 100 mg b.i.d. Code status: Goal of care discussed for more than 23 minutes, full code DISPOSITION: Med/surg Patient's status discussed with the patient and the daughter on the bedside. Case discussed with Dr. Gimenez Plan discussed with: Patient, Daughter, Other (RN) My Orders My Orders Orders - GOLDY MATA Procedure Category Date Status Time Magnesium Sulfate PHA 05/16/24 In Process 1gm/100ml 20:00 Comprehensive LAB 05/17/24 Verified Metabolic Panel 04:00 Date of Service: May 16, 2024 Billing Provider: SLIM JJ MD Common Visit Codes: [id number] INP/OBS CARE(HIGH) GOLDY MATA RESDIENT May 16, 2024 15:52 SLIM JJ MD May 18, 2024 09:23
[2024-05-16] MEDS: TAMSULOSIN HYDROCHLORIDE 0.4 MG CAP PO SCH (17:35)
[2024-05-16] MEDS: HYDROCORTISONE SOD SUCC 100 MG/2ML INJ VIAL IV SCH (17:35)
[2024-05-16 18:33] LABS: INR 0.97 (0.9-1.15); Prothrombin Time 10.3 sec (9.3-11.8)
[2024-05-17] VITALS (12 sets, daily range): BP systolic 94–124; BP diastolic 55–78; PULSE 94–115; RESP 13–20; TEMP 97.9–99.7; O2SAT 95–100
[2024-05-17 06:34] LABS: Basophils # (auto) 0 10 ^3/uL (0-0.2); Eosinophils # (auto) 0 10 ^3/uL (0-0.8); Lymphocytes # (auto) 0.6 10 ^3/uL (0.4-5.4); Lymphocytes % (auto) 7.5 % (10.0-50.0); Monocytes # (auto) 0.6 10 ^3/uL (0-1.3)
[2024-05-17 06:41] LABS: Hematocrit 30.4 % (36.0-46.0); Hemoglobin 10.3 g/dL (12.2-16.2); Mean Corpuscular Hemoglobin 29.5 pg (28.0-32.0); Mean Corpuscular Volume 86.9 fL (80.0-100.0); Monocytes % (auto) 7.8 % (0.0-12.0); Neutrophils # (auto) 6.4 10 ^3/uL (1.6-8.6); Neutrophils % (auto) 84.7 % (37.0-80.0); Nucleated Red Blood Cells % 0.1 %; Red Cell Distribution Width 13.2 % (11.8-14.3); White Blood Cell 7.5 10^3/uL (4.4-10.8)
[2024-05-17 06:42] LABS: Alanine Aminotransferase 28 U/L (7-40); Albumin 3.3 g/dL (3.2-4.8); Alkaline Phosphatase 67 U/L (46-116); Anion Gap 8 (5-15); Aspartate Aminotransferase 29 U/L (13-40); BUN/Creatinine Ratio 13.6 (10.0-20.0); Bilirubin, Total 0.5 mg/dL (0.2-1.0); Blood Urea Nitrogen 9 mg/dL (9-23); Carbon Dioxide 22 mmol/L (20-31); Chloride 105 mmol/L (98-107)
[2024-05-17 06:46] LABS: Glucose 176 mg/dL (74-106); Potassium 3.4 mmol/L (3.5-5.1); Sodium 135 mmol/L (136-145)
[2024-05-17 07:22] LABS: Platelet Count (auto) 59 10^3/uL (140-450)
[2024-05-17] MEDS: VANCOMYCIN 750MG KIT 100 ML IV SCH (07:54)
[2024-05-17] MEDS: IODIXANOL 320MG/ML 100ML BTL IV ONE (10:16)
[2024-05-17] MEDS: MIDAZOLAM HCL 2MG/2ML 2ml VIAL (1mg/ml) ONE (10:40)
[2024-05-17] MEDS: fentaNYL CITRATE 100 MCG/2 ML VL ONE (10:40)
[2024-05-17] MEDS: LIDOCAINE 2%HCL (LOCAL ANESTH.) INJ 20ML MDV ONE ×2 (10:40→11:22)
[2024-05-17] MEDS: HYDROmorphone HCL 2 MG/ML VL/or syr ONE (11:50)
--- NOTE | 2024-05-17 15:35 | DVHPNRES ---
Progress Note Date Seen: May 17, 2024 Resident Creating Document: GOLDY MATA RESDIENT Medical Necessity Reason Pt with a Central, PICC or Fol: No Subjective Review of Systems Patient is a 44 year old male with a past medical history as described below came to the ED with the chief complaint of Abdominal pain for 1 day prior to admission. Patient reports that thursday she had to wake up early in the morning due to sudden onset left sided flank pain which was colicky, intermittant in nature and 10/10 on intensity when the pain occurred. she tried over the counter medication for pain during the day but could not manage following which she came to the hospital for further evaluation. On admission patient had elevated white count, tachycardia. Patient reported 2-3 episodes of vomiting associated with severe pain while she was in the ER. Past medical history: T2DM Past surgical history: none reported Social history: lives with family and denies smoking, drugs, alcohol use Home medications: Takes oral medication for high blood sugar but does not remember the name Today, 05/16, the patient seen and examined at the bedside. Patient is still complaining of abdominal pain, with fever. Patient reports: No new complaints Changes from previous H/P or p: No Changes Objective vital signs Vital Sign Date Time Temp Pulse Resp B/P (MAP) Pulse Ox O2 Delivery O2 Flow Rate FiO2 05/17/24 15:18 111 16 118/78 05/17/24 13:03 98.1 99 98.1 05/17/24 08:00 Room Air* 0 21 Total Intake and Output 05/16/24 05/16/24 05/17/24 15:00 23:00 07:00 Intake Total 200 ml 975 ml 2100 ml Output Total 1 ml Balance 200 ml 974 ml 2100 ml medications Current Medications Medications Dose Ordered Sig/Yasmine Route Start Time Stop Time Status Last Admin Dose Admin Acetaminophen/ Hydrocodone Bitart 1 tab Q4HP PRN PO 05/15/24 00:00 05/16/24 13:56 1 TAB Ondansetron HCl 4 mg Q4HP PRN IV 05/15/24 00:00 Docusate Sodium 100 mg BIDPRN PRN PO 05/15/24 00:00 Acetaminophen 650 mg Q6HP PRN PO 05/15/24 00:00 05/16/24 12:16 650 MG Morphine Sulfate 2 mg Q4HPRN PRN IV 05/15/24 00:00 05/17/24 15:18 2 MG Nitroglycerin 0.4 mg Q5MINP PRN SL 05/15/24 00:00 Morphine Sulfate 2 mg Q30M PRN IV 05/15/24 00:00 Insulin Glargine 15 units HS SC 05/15/24 22:00 05/16/24 21:51 15 UNITS Sodium Chloride 1,000 ml @ 150 mls/hr Q6H40M IV 05/15/24 17:45 05/17/24 03:05 150 MLS/HR Diagnostic Test (Pha) 1 strip IQ4HR 05/15/24 20:00 05/17/24 08:00 1 STRIP Insulin Human Regular IQ4HR SC 05/15/24 20:00 05/17/24 05:30 4 UNITS Dextrose 50 ml UD PRN IV 05/15/24 17:45 Tamsulosin HCl 0.4 mg QPM PO 05/16/24 18:00 05/16/24 17:35 0.4 MG Vancomycin HCl 0 ml @ 0 mls/hr UD IV 05/16/24 10:00 Vancomycin HCl 100 ml @ 100 mls/hr Q12H IV 05/17/24 07:00 05/17/24 07:54 100 MLS/HR Hydrocortisone Sodium Succinate 50 mg Q6HR IV 05/16/24 18:00 05/17/24 05:34 50 MG Piperacillin Sod/ Tazobactam Sod 100 ml @ 25 mls/hr Q8H IV 05/16/24 15:30 05/17/24 07:50 25 MLS/HR Examination General Appearance: Alert, Oriented X3, Cooperative, No acute distress HEENT: Atraumatic, PERRLA, EOMI, Mucous membrane moist/pink Respiratory: Clear to auscultation, Normal air movement Cardiovascular: Regular rate, Normal S1, Normal S2, No murmurs, no chest wall tenderness Abdominal: Mild abdominal tenderness Extremities: No clubbing, No cyanosis, No edema, Normal pulses, No tenderness/swelling Skin: No rashes, No breakdown, No significant lesion Neuro: Normal gait, Normal speech, Strength at 5/5 X4 ext, Normal tone, Sensation intact, Cranial nerves 3-12 NL, Reflexes 2+ Psych/Mental Status: Mental status NL, Mood NL laboratory and microbiology Laboratory Tests 05/17/24 05:44 Test 05/17/24 05:44 Range/Units Serum Glucose 176 H 74-106 mg/dL Microbiology Date/Time Source Procedure Growth Status 05/15/24 21:15 Blood Blood Culture - Preliminary NO GROWTH AFTER 24 HOURS OF INCUBATION. Resulted 05/14/24 23:49 Voided Urine Urine Culture - Final Complete Labs and/or images reviewed: Labs reviewed by me, Image(s) reviewed by me Problem List/Assessment/Plan Problem List/Assessment/Plan This is a 44-year-old female with past medical history of renal stone (10 years back) and diabetes mellitus (does not take medicine due to hair fall as per patient), presented to the hospital because of the left-sided flank pain, vomiting and fever since today. Admitted on 05/14. Septic shock likely due to sepsis Sepsis likely d/t UTI UTI , likely Acute pyelonephritis Multiple Left Renal with superimposed infection, pyelonephritis Urine and blood culture from 05/14 shows no growth Renal ultrasound shows Left kidney measures 14.85 cm. There are multiple nonobstructing calculi in the left with no hydronephrosis urinalysis shows increased urine WBC, non bacteria seen although CT abdomen pelvis shows 15.6 mm calculus in the left kidney with gas in the collecting system suggesting infection. 24.2 mm calculus at the ureteropelvic junction. 8-9 mm calculus in the lower pole of the left kidney. Diffuse enlargement of the left kidney. 6-7 mm calculus in the lower pole of the left kidney Urology on the board, recommended PCN by Radiology, and follow up on outpatient basis for the PCNL Radiology on the board, placed be seen on the left side, on 05/17 Urine blood culture shows no growth blood culture shows no growth Continue IV fluids 150 mL/hour Hydrocortisone 50 mg q.i.d. Continue vancomycin and Zosyn Continue tamsulosin 0.4 mg daily Uncontrolled T2DM with hyperglycemia Ruled out DKA Hb A1c, 14 On insulin lantus 15 U HS aggressive sliding scale KEITH likely hemodynamically mediated, improved Continue IV fluid Mild hyponatremia Monitoring Moderate hypokalemia Supplemented Hypomagnesemia Supplemented Hypo phosphatamia Monitoring DIET: Full liquid DVT prophylax: SCDs GI prophylaxis: No indication of PPI Bowel regimen: Docusate 100 mg b.i.d. Code status: Goal of care discussed for more than 23 minutes, full code DISPOSITION: Med/surg Patient's status discussed with the patient and the daughter on the bedside. Case discussed with Dr. Rich Plan discussed with: Other (RN) Date of Service: May 17, 2024 Billing Provider: MARIANGEL RICH MD Common Visit Codes: [id number] INP/OBS CARE(HIGH) GOLDY MATA May 17, 2024 15:35 MARIANGEL RICH MD May 17, 2024 18:09
[2024-05-17] MEDS: POTASSIUM EFFERVESENT TAB 25 MEQ GT ONE (16:47)
[2024-05-17] MEDS: POTASSIUM EFFERVESENT TAB 25 MEQ PO ONE (17:18)
--- NOTE | 2024-05-17 19:50 | DVH ---
XY PERCUTANEOUS NEPHROSTOMY, HISTORY: NEPHRO TUBE PROCEDURE: Informed consent was obtained. The patient was placed on the fluoroscopic table in a prone position and IV sedation administered. The left flank was prepped with chlorhexidine which was allow ed to dry and draped in the usual sterile fashion. Time out was performed and the soft tissues infilt rated with 1% lidocaine local anesthetic. Under ultrasound guidance, a 21 gauge Accu Stick needle was advanced into a mildly dilated upper pole posterior calyx, and a contrast nephrostogram performed. A 21 gauge Accu Stick needle was then advanced under fluoroscopic guidance from a posterolateral appro ach into the optimal lower pole calyx, and a small amount of contrast was injected under fluoroscopy to confirm positioning. Over a mandril wire, exchange was made to a non-vascular access set, through which was advanced an 0.035 wire. Wire and catheter were advanced down the ureter and into the bladde r. Following serial dilation, an 8 [place] x 24 cm nephroureteral stent was placed. The catheter was s ecured in place and connected to gravity drainage. A Nephrostomy tube was unable to be securely place d due to the large renal pelvis staghorn calculus. A sterile dressing was applied. No immediate compl ication was identified. FLUOROSCOPY TIME: 10.3 minutes. DAP 484.72 CONTRAST USED: 20 mL . SEDATION: Dr. Doris Rodrigues was personally responsible for the administration of moderate sedation during the procedure performed, including the use of an independent trained observer who had no other duties during the procedure. The drugs utilized were IV fentanyl and versed (see nursing log for details). The total time of supervision by the attending physician was approximately 45 minutes. FINDINGS: Staghorn stone in the left renal pelvis. Mildly dilated left renal collecting system. Plac ement of an 8 fr x 24 nephroureteral stent via a lower pole subcostal access into the left kidney. T he proximal pigtail was unable to form due to the large staghorn stone. IMPRESSION: Mild left hydronephrosis with a large left renal pelvis staghorn calculus status post placement of an 8 fr x 24 nephroureteral stent via a lower pole subcostal access into the left kidney. Due to the large staghorn stone, a pigtail is unable to be formed in the renal pelvis to allow for a secure placement of a nephrostomy tube. Plan: Recommend PCNL of the staghorn stone.
[2024-05-18 05:00] VITALS: BP 128/81; PULSE 95; RESP 18; TEMP 98.3; O2SAT 99
[2024-05-18 07:35] LABS: Basophils # (auto) 0 10 ^3/uL (0-0.2); Basophils % (auto) 0.1 % (0.0-2.0); Eosinophils # (auto) 0 10 ^3/uL (0-0.8); Hematocrit 29.2 % (36.0-46.0); Hemoglobin 9.7 g/dL (12.2-16.2); Lymphocytes # (auto) 0.7 10 ^3/uL (0.4-5.4); Lymphocytes % (auto) 12.5 % (10.0-50.0); Mean Corpuscular Hgb Conc. 33.3 g/dL (32.0-36.0); Monocytes # (auto) 0.5 10 ^3/uL (0-1.3); Monocytes % (auto) 9.2 % (0.0-12.0); Neutrophils # (auto) 4.5 10 ^3/uL (1.6-8.6); Neutrophils % (auto) 78.2 % (37.0-80.0); Nucleated Red Blood Cells % 0.1 %; Red Blood Cells 3.36 10^6/uL (4.0-5.20); Red Cell Distribution Width 13.1 % (11.8-14.3); White Blood Cell 5.8 10^3/uL (4.4-10.8)
[2024-05-18 07:42] LABS: Platelet Count (auto) 75 10^3/uL (140-450)
[2024-05-18 07:57] LABS: Alanine Aminotransferase 22 U/L (7-40); Alkaline Phosphatase 74 U/L (46-116); Anion Gap 6 (5-15); BUN/Creatinine Ratio 20.7 (10.0-20.0); Blood Urea Nitrogen 12 mg/dL (9-23); Calcium 8.7 mg/dL (8.7-10.4); Carbon Dioxide 26 mmol/L (20-31); Sodium 139 mmol/L (136-145)
[2024-05-18 07:58] LABS: Albumin 3.2 g/dL (3.2-4.8); Aspartate Aminotransferase 18 U/L (13-40)
[2024-05-18 07:59] LABS: Bilirubin, Total 0.6 mg/dL (0.2-1.0)
[2024-05-18 08:00] VITALS: RESP 16
[2024-05-18 08:01] LABS: Chloride 107 mmol/L (98-107); Glucose 160 mg/dL (74-106); Total Protein 5.6 g/dL (5.7-8.2)
[2024-05-18 08:47] VITALS: BP 133/85; PULSE 73; RESP 17; TEMP 98.1; O2SAT 98
[2024-05-18] MEDS: DOCUSATE SOD 100 MG CAP PO PRN (11:31)
[2024-05-18] MEDS: DICYCLOMINE HCL 10 MG CAP PO SCH (12:41)
[2024-05-18 13:00] VITALS: BP 118/64; PULSE 97; RESP 20; TEMP 97.8; O2SAT 96
--- NOTE | 2024-05-18 13:59 | DVH ---
INDICATION: abdominal pain TECHNIQUE: Multiple real-time grayscale transabdominal sonographic images along with color and duplex Doppler of the uterus and ovaries were obtained. COMPARISON: None FINDINGS: The uterus measures 7.3 x 5.4 x 3.9 cm. The endometrial stripe measures 0.4 cm. Subcentimet er nabothian cysts. The right ovary measures 3.5 x 2.5 x 2.8 cm. Right ovarian dominant follicle is present. The left ovary measures 3.5 x 3.3 x 1.5 cm. Subsequent color and duplex Doppler interrogation of the ovaries demonstrated symmetric vascular flow to both ovaries, though this does not exclude the possibility of torsion due to the dual blood suppl y. There is no free fluid in the cul-de-sac. IMPRESSION: 1. Nonvisualized left ovary. Nabothian cysts. Otherwise, grossly unremarkable pelvic ultrasound. HS:Y
[2024-05-18] MEDS ORDERED: INSU100I51 SC (16:23)
[2024-05-18] MEDS ORDERED: SITA25TA3 PO (16:23)
[2024-05-18] MEDS ORDERED: LANC-347 XX (16:23)
[2024-05-18] MEDS ORDERED: METF-489 PO (16:23)
[2024-05-18] MEDS ORDERED: BLOOMIS91 XX (16:23)
[2024-05-18] MEDS ORDERED: HYDR-4902 PO (16:23)
[2024-05-18] MEDS ORDERED: BACDST PO (16:23)
[2024-05-18] MEDS ORDERED: INSU100I67 SC (16:23)
[2024-05-18] MEDS ORDERED: DICY10CA PO (16:23)
[2024-05-18 16:39] VITALS: BP 130/94; PULSE 98; RESP 20; TEMP 98.5; O2SAT 100
[2024-05-18] MEDS ORDERED: BLOO1KIT XX (16:41)
[2024-05-18] MEDS ORDERED: ALCO1PAD13 XX (16:41)
[2024-05-18] MEDS ORDERED: LANC28MI39 XX (16:41)
[2024-05-18] MEDS ORDERED: GLUC-224 VI (16:41)
[2024-05-18 17:04] VITALS: BP 128/86; PULSE 80; RESP 18; TEMP 98.1; O2SAT 98
--- NOTE | 2024-05-18 17:59 | DVHPN2 ---
Progress Note - Dictate Date Seen: May 18, 2024 Has the PT tested + for MRSA If YES, has PT been informed?: No Medical Necessity Reason Pt with a Central, PICC or Fol: No Medical Necessity Reason Patient is status post left percutaneous nephroureteral stent placement for the management of her staghorn calculus and fever. Her urine culture is negative. Her white count has lowered. She has been afebrile and is being discharged. Subjective Patient is having left flank pain secondary to the nephrostomy tube. I informed the patient to return to emergency room on Thursday05/23/2024 if her pain is not controllable. If she is admitted, then I will proceed with inpatient PCNL on 05/24 24. Otherwise she will need to find a urologist in her network as outpatient for further care vital signs Vital Sign Date Time Temp Pulse Resp B/P (MAP) Pulse Ox O2 Delivery O2 Flow Rate FiO2 05/18/24 17:04 98.1 80 18 98 05/18/24 16:39 130/94 (106) 05/18/24 08:00 Room Air* 0 21 Total Intake and Output 05/17/24 05/17/24 05/18/24 15:00 23:00 07:00 Intake Total 100 ml 2600 ml 1000 ml Output Total 1650 ml Balance 100 ml 2600 ml -650 ml medications Current Medications Medications Dose Ordered Sig/Yasmine Route Start Time Stop Time Status Last Admin Dose Admin Acetaminophen/ Hydrocodone Bitart 1 tab Q4HP PRN PO 05/15/24 00:00 05/18/24 16:51 1 TAB Ondansetron HCl 4 mg Q4HP PRN IV 05/15/24 00:00 Docusate Sodium 100 mg BIDPRN PRN PO 05/15/24 00:00 05/18/24 11:31 100 MG Acetaminophen 650 mg Q6HP PRN PO 05/15/24 00:00 05/16/24 12:16 650 MG Morphine Sulfate 2 mg Q4HPRN PRN IV 05/15/24 00:00 05/18/24 08:56 2 MG Nitroglycerin 0.4 mg Q5MINP PRN SL 05/15/24 00:00 Morphine Sulfate 2 mg Q30M PRN IV 05/15/24 00:00 Insulin Glargine 15 units HS SC 05/15/24 22:00 05/18/24 00:44 15 UNITS Sodium Chloride 1,000 ml @ 150 mls/hr Q6H40M IV 05/15/24 17:45 05/18/24 12:57 150 MLS/HR Diagnostic Test (Pha) 1 strip IQ4HR 05/15/24 20:00 05/18/24 15:54 1 STRIP Insulin Human Regular IQ4HR SC 05/15/24 20:00 05/18/24 16:01 8 UNITS Dextrose 50 ml UD PRN IV 05/15/24 17:45 Tamsulosin HCl 0.4 mg QPM PO 05/16/24 18:00 05/17/24 17:18 0.4 MG Vancomycin HCl 0 ml @ 0 mls/hr UD IV 05/16/24 10:00 Vancomycin HCl 100 ml @ 100 mls/hr Q12H IV 05/17/24 07:00 05/18/24 06:26 100 MLS/HR Hydrocortisone Sodium Succinate 50 mg Q6HR IV 05/16/24 18:00 05/18/24 12:41 50 MG Piperacillin Sod/ Tazobactam Sod 100 ml @ 25 mls/hr Q8H IV 05/16/24 15:30 05/18/24 07:28 25 MLS/HR Dicyclomine HCl 20 mg QID PO 05/18/24 12:00 05/18/24 12:41 20 MG objective Left percutaneous nephroureteral stent in place laboratory and microbiology Laboratory Tests 05/18/24 06:10 Test 05/18/24 06:10 Range/Units Serum Glucose 160 H 74-106 mg/dL Problem List Left staghorn calculus Left nephrostomy ureteral stent Assessment/Plan Outpatient PCNL versus inpatient surgery if patient returns for intractable pain Dietary Evaluation Review Comments: Continue current plan of care Expected Outcomes/Goals: F/U in 3-5 days Plan discussed with: Patient, Other AUGUSTA SMALL MD May 18, 2024 17:59
--- NOTE | 2024-05-18 20:57 | DVHDSRES ---
Discharge Summary Date of Admission Resident Creating Document: GOLDY MATA RESDICARI May 14, 2024 at 23:49 Date of Discharge: May 18, 2024 Admitting Diagnosis Kidney stone Labs/Diagnostic Data: Laboratory Results Test 05/18/24 15:52 05/18/24 06:10 05/17/24 05:44 05/16/24 17:43 POC Glucose 232 mg/dl (70-106) White Blood Count 5.8 10^3/uL (4.4-10.8) Red Blood Count 3.36 10^6/uL (4.0-5.20) Hemoglobin 9.7 g/dL (12.2-16.2) Hematocrit 29.2 % (36.0-46.0) Mean Corpuscular Volume 87.0 fL (80.0-100.0) Mean Corpuscular Hemoglobin 29.0 pg (28.0-32.0) Mean Corpuscular Hemoglobin Concent 33.3 g/dL (32.0-36.0) Red Cell Distribution Width 13.1 % (11.8-14.3) Platelet Count 75 10^3/uL (140-450) Mean Platelet Volume 9.6 fL (6.9-10.8) Neutrophils (%) (Auto) 78.2 % (37.0-80.0) Lymphocytes (%) (Auto) 12.5 % (10.0-50.0) Monocytes (%) (Auto) 9.2 % (0.0-12.0) Eosinophils (%) (Auto) 0.0 % (0.0-7.0) Basophils (%) (Auto) 0.1 % (0.0-2.0) Neutrophils # (Auto) 4.5 10 ^3/uL (1.6-8.6) Lymphocytes # (Auto) 0.7 10 ^3/uL (0.4-5.4) Monocytes # (Auto) 0.5 10 ^3/uL (0-1.3) Eosinophils # (Auto) 0 10 ^3/uL (0-0.8) Basophils # (Auto) 0 10 ^3/uL (0-0.2) Nucleated Red Blood Cells 0.1 % Sodium Level 139 mmol/L (136-145) Potassium Level 3.0 mmol/L (3.5-5.1) Chloride Level 107 mmol/L (98-107) Carbon Dioxide Level 26 mmol/L (20-31) Anion Gap 6 (5-15) Blood Urea Nitrogen 12 mg/dL (9-23) Creatinine 0.58 mg/dL (0.550-1.02) Glomerular Filtration Rate Calc 113 mL/min (>90) BUN/Creatinine Ratio 20.7 (10.0-20.0) Serum Glucose 160 mg/dL (74-106) Calcium Level 8.7 mg/dL (8.7-10.4) Total Bilirubin 0.6 mg/dL (0.2-1.0) Aspartate Amino Transferase (AST) 18 U/L (13-40) Alanine Aminotransferase (ALT) 22 U/L (7-40) Alkaline Phosphatase 74 U/L (46-116) Total Protein 5.6 g/dL (5.7-8.2) Albumin 3.2 g/dL (3.2-4.8) Magnesium Level 1.9 mg/dL (1.6-2.6) Prothrombin Time 10.3 sec (9.3-11.8) Prothrombin Time INR 0.97 (0.9-1.15) Test 05/16/24 11:00 05/16/24 05:52 05/15/24 18:35 05/15/24 18:23 Lactic Acid Level 1.0 mmol/L (0.4-2.0) Phosphorus Level 1.6 mg/dL (2.4-5.1) Beta-Hydroxybutyric Acid 0.566 mmol/L (< 0.4) Serum Osmolality 278 mOsm/kg (278-298) Blood Gas Specimen Type Arterial Blood Gas Sample Site Right radial Blood Gas Patient Temperature 37.0 Arterial Blood Date Drawn [id number] Arterial Blood pH 7.477 (7.350-7.450) Arterial Blood Partial Pressure CO2 39.9 mmHg (32.0-45.0) Arterial Blood Partial Pressure O2 99.8 mmHg (83.0-108.0) Arterial Blood HCO3 28.8 mmol/L (21.0-28.0) Arterial Blood Oxygen Saturation 97.1 % (94.0-98.0) Arterial Blood Base Excess 4.9 mmol/L (-2.0-3.0) Arterial Blood Oxyhemoglobin 91.8 % (94.0-98.0) Arterial Blood Carboxyhemoglobin 4.8 % (0.5-1.5) Arterial Blood Methemoglobin 0.7 % (0.0-1.5) Yonny Test Yes Blood Gas Total Hemoglobin 7.90 g/dL (12.0-16.0) Blood Gas Liter Flow 2.00 Blood Gas Modality Nasal cannula FiO2 % 28.0 Test 05/15/24 11:00 05/14/24 18:03 Urine Color Light-yellow (Yellow) Urine Clarity Clear (Clear) Urine pH 5.5 (5.0-9.0) Urine Specific [place] 1.039 (1.001-1.035) Urine Protein 1+ (Negative) Urine Ketones 1+ (Negative) Urine Blood 2+ /uL (Negative) Urine Nitrite Negative (Negative) Urine Bilirubin Negative (Negative) Urine Urobilinogen Normal mg/dL (Negative) Urine Leukocyte Esterase Trace /uL (Negative) Urine RBC 29 /hpf (0 - 4) Urine WBC 50 /hpf (0 - 5) Urine Squamous Epithelial Cells Few /hpf (<5) Urine Bacteria None seen /hpf (None Seen) Urine Mucus Few (None Seen) Urine Creatinine 67.33 mg/dL (30.0-125.0) Urine Protein/Creatinine Ratio 0.98 Urine Sodium < 10 mmol/L (40-220) Urine Glucose 4+ mg/dL (Normal) Urine Total Protein 66.3 mg/dL (1-14) Beta HCG, Quantitative 1.5 mIU/mL (1.5-4.2) Other Laboratory Tests 05/18/24 06:10 Brief Hx & Hospital Course: The patient is a 44-year-old male with a past medical history of type 2 diabetes mellitus (T2DM) who came to the ED with the chief complaint of abdominal pain for one day prior to admission. He reported that on Thursday morning, he woke up early due to the sudden onset of left-sided flank pain, which was colicky, intermittent in nature, and 10/10 in intensity when it occurred. He tried [id number] medication for pain during the day but could not manage it, leading him to come to the hospital for further evaluation. On admission, the patient had an elevated white count and tachycardia. He reported 2-3 episodes of vomiting associated with severe pain while in the ER. His past surgical history is unremarkable, and he lives with his family, denying smoking, drug, or alcohol use. He takes oral medication for high blood sugar but does not remember the name. Abdominopelvic CT scan was showing diffusely enlarged left kidney with multiple large calculi. Renal ultrasound showed multiple nonobstructing calculi on the left side. Urology was consulted, and recommended to put a nephrostomy on the left side, nephrostomy was by intervention Radiology. Urinalysis was showing UTI, and the patient was seen with antibiotic including Zosyn and vancomycin for the pyelonephritis. The Urology recommended to follow up on outpatient basis for the possible percutaneous nephrolithotomy. Hb A1c was high at, more than 40, insulin and oral medicine for the diabetes was started upon discharge. On 05/22, the patient was feeling better, clinically and hemodynamically patient was stable and the patient was discharged home. Discharge plan: Follow up with the PCP within 1 week of the discharge Follow up with the Urology for the percutaneous nephrolithotomy on outpatient basis Metformin 500 mg daily Sitagliptin Phosphate (Januvia 25 mg daily) Bactrim DS b.i.d. for 10 days Insulin detemir 15 units subcutaneous daily Insulin aspart 10 units 3 times before meal Operations or Procedures [place] [id number] Ph: [phone] DIAGNOSTIC IMAGING Diagnostic Imaging Report : [id number] Signed PATIENT: KRISTIAN CALLE ACCT: [id number] UNIT: [id number] : 1980 LOC: ER ROOM / BED: / AGE / SEX: 44 / F ADM STATUS: REG ER SERVICE 4062 ORDERING PHYSICIAN: ALECIA SAHNI MD PROCEDURE(s): ABPL - CT AB PEL WO CON-NO ORAL OR IV REASON: Left flank pain ORDER NUMBER(s): [id number], ACCESSION NUMBER(s): [id number] Exam: CT CT AB PEL WO CON-NO ORAL OR IV History: Left flank pain Comparison Study: None available at time of dictation. TECHNIQUE: Multidetector CT of the abdomen was performed from lung bases to pubic symphysis. Imaging was performed without IV contrast. Axial, coronal and sagittal multiplanar reformats were obtained from the axial data set by the technologist. Radiation Dose Information: CT Dose: CTDI volume is 6.29 mGy. Dose-length product is 377.02 mGy*cm FINDINGS: Evaluation of solid organs is limited due to lack of intravenous contrast use. Findings: Lung Bases: No acute or significant lung base finding. Normal heart size. No pleural or pericardial effusion. Liver: The liver is normal in size. No focal lesions. Gallbladder and Biliary Tree: Unremarkable Spleen: Unremarkable Pancreas: The pancreas is grossly normal in appearance. Adrenal Glands: Unremarkable Kidneys: 15.6 mm calculus in the left kidney with gas in the collecting system suggesting infection. 24.2 mm calculus at the ureteropelvic junction. 8-9 mm calculus in the lower pole of the left kidney. Diffuse enlargement of the left kidney. 6-7 mm calculus in the lower pole of the left kidney. Bladder: Grossly unremarkable for degree of distention. Multiple calcifications in the pelvis. Bowel: The stomach is grossly normal in appearance. Small bowel and colon are normal in caliber and distribution. The appendix is not visualized; however, no secondary findings of acute appendicitis identified. Ascites: Absent Lymphadenopathy: No mesenteric, retroperitoneal or periportal lymphadenopathy. Abdominal Wall and Mesentery: Unremarkable. Vasculature: The visualized abdominal aorta is normal in size and caliber. Evaluation of abdominal and pelvic vessels is limited due to lack of intravenous contrast. Pelvic Organs: Unremarkable Musculoskeletal: No aggressive focal bony lesions, acute fractures or dislocation. Soft tissues: Unremarkable IMPRESSION: 1. Diffusely enlarged left kidney with multiple large calculi largest is at the ureteropelvic junction and measures 24.2 mm. There is a 15.6 mm calculus in the midpole of the left kidney with gas in the collecting system suggesting infection. There are several other smaller calculi in the left kidney. Radiation optimization: All CT scans at this facility use at least one of these dose optimization techniques: automated exposure control mA and/or kV adjustment per patient size (includes targeted exams where dose is matched to clinical indication) or iterative reconstruction. ATED BY: YUSUF DUARTE Jr., DO DICTATED DATE/TIME: 05/14/241958 SIGNED BY: YUSUF DUARTE Jr., DO SIGNED DATE/TIME: 05/14/241958 CC: [place] [id number] Ph: [phone] DIAGNOSTIC IMAGING Diagnostic Imaging Report : [id number] Signed PATIENT: KRISTIAN CALLE ACCT: [id number] UNIT: [id number] : 1980 LOC: [facility] ROOM / BED: 0244ADS / 4 AGE / SEX: 44 / F ADM STATUS: ADM IN SERVICE 0814 ORDERING PHYSICIAN: FROYLAN RODRIGUES MD PROCEDURE(s): THOUS - US GUIDANCE FOR NEEDLE PLACEME REASON: NEPHRO TUBE ORDER NUMBER(s): [id number], ACCESSION NUMBER(s): [id number] XY PERCUTANEOUS NEPHROSTOMY, HISTORY: NEPHRO TUBE PROCEDURE: Informed consent was obtained. The patient was placed on the fluoroscopic table in a prone position and IV sedation administered. The left flank was prepped with chlorhexidine which was allowed to dry and draped in the usual sterile fashion. Time out was performed and the soft tissues infiltrated with 1% lidocaine local anesthetic. Under ultrasound guidance, a 21 gauge Accu Stick needle was advanced into a mildly dilated upper pole posterior calyx, and a contrast nephrostogram performed. A 21 gauge Accu Stick needle was then advanced under fluoroscopic guidance from a posterolateral approach into the optimal lower pole calyx, and a small amount of contrast was injected under fluoroscopy to confirm positioning. Over a mandril wire, exchange was made to a non-vascular access set, through which was advanced an 0.035 wire. Wire and catheter were advanced down the ureter and into the bladder. Following serial dilation, an 8 [place] x 24 cm nephroureteral stent was placed. The catheter was secured in place and connected to gravity drainage. A Nephrostomy tube was unable to be securely placed due to the large renal pelvis staghorn calculus. A sterile dressing was applied. No immediate complication was identified. FLUOROSCOPY TIME: 10.3 minutes. DAP 484.72 CONTRAST USED: 20 mL . SEDATION: Dr. Doris Rodrigues was personally responsible for the administration of moderate sedation during the procedure performed, including the use of an independent trained observer who had no other duties during the procedure. The drugs utilized were IV fentanyl and versed (see nursing log for details). The total time of supervision by the attending physician was approximately 45 minutes. FINDINGS: Staghorn stone in the left renal pelvis. Mildly dilated left renal collecting system. Placement of an 8 fr x 24 nephroureteral stent via a lower pole subcostal access into the left kidney. The proximal pigtail was unable to form due to the large staghorn stone. IMPRESSION: Mild left hydronephrosis with a large left renal pelvis staghorn calculus status post placement of an 8 fr x 24 nephroureteral stent via a lower pole subcostal access into the left kidney. Due to the large staghorn stone, a pigtail is unable to be formed in the renal pelvis to allow for a secure placement of a nephrostomy tube. Plan: Recommend PCNL of the staghorn stone. ATED BY: FROYLAN RODRIGUES MD DICTATED DATE/TIME: 05/17/241947 SIGNED BY: FROYLAN RODRIGUES MD SIGNED DATE/TIME: 05/17/241947 CC: Condition at Discharge: Good Final Diagnosis/Problems List Septic shock likely due to sepsis Sepsis likely due to UTI UTI likely due to acute pyelonephritis Intractable abdominal pain due to Multiple left renal stone, with superimposed infection, pyelonephritis , left staghorn calculi Uncontrolled diabetes mellitus with hyperglycemia, Hb A1c of 14 Ruled out DKA KEITH, likely due to hemodynamically mediated Mild hyponatremia Hypokalemia Hypomagnesemia Hypophosphatemia Discharge Disposition: Home Discharge Instruct/Medications Diet: Cardiac 2g Na,low cholest Activity: No Restrictions, As Tolerated Follow Up/Referral: Follow up with the PCP within one week after discharge follow up with DC clinic within one week after discahrge follow up with urologist (Dr. Jiang) within one week Medications: Bactrim BID for 10 days Dicyclomine 10mg for 10 days [place] for 7 days Metformin XR 500mg daily Javunia 25mg daily Insulin Detemir 15 units during the night Insulin Aspart 10 units Discharge Statement: "Patient was advised to return to the ER or call 911 if any headaches, dizziness, shortness of breath, chest pain, abdominal pain, bleeding, fevers, or worsening of medical condition. Patient was counseled about treatment plan, medications, possible side effects, patientverbalized understanding. All questions were answered to the best of my ability. This discharge took greater then 30 minutes in planning, reviewing documentation, counseling the patient, and discussing with other team members." ASSESSMENT ASSESSMENT Assessment Pyelonephritis Renal Stone Date of Service: May 18, 2024 Billing Provider: SLIM JJ MD Common Visit Codes: 60142-UQF/OBS DISCH DAY >30min GOLDY MATA RESDIENT May 18, 2024 20:57 SLIM JJ MD May 23, 2024 12:00
== END 2024-05-18 18:08 | disposition home or self-care (01) | DRG 720 ==
LOC: EDBD 16:25 → ER 16:25 → OVERFLOW 23:49 → EAST 05-15 05:50 → TELE-E-ADS 05-16 15:13 → EAST 05-17 16:17
PROVIDERS: ADMIT Student in an Organized Health Care Education/Training Program; ATTEND Student in an Organized Health Care Education/Training Program
PROC: BT121ZZ Fluoroscopy of Left Kidney using Low Osmolar Contrast (ICD-10-PCS; principal; 2024-05-17)
PROC: 0T773DZ Dilation of Left Ureter with Intraluminal Device, Percutaneous Approach (ICD-10-PCS; 2024-05-17)
DX: A41.9 Sepsis, unspecified organism (principal); N17.0 Acute kidney failure with tubular necrosis; R65.21 Severe sepsis with septic shock; E87.1 Hypo-osmolality and hyponatremia; E11.65 Type 2 diabetes mellitus with hyperglycemia; N10 Acute pyelonephritis; E83.42 Hypomagnesemia; E87.6 Hypokalemia; N20.2 Calculus of kidney with calculus of ureter; Z79.899 Other long term (current) drug therapy; Z79.4 Long term (current) use of insulin
CPT/HCPCS: 36415; 36600; 50430; 50433; 74176; 74425; 76775; 76856; 76942; 80048; 80053; 81001; 82010; 82570; 82805; 82962; 83605; 83735; 83930; 84100; 84156; 84300; 84702; 85025; 85610; 87040; 87086; 99152; G0378; J1815; J1885; J2250; J2543; J3480; Q0162; Q9967

== ENCOUNTER 2024-05-23 09:47 | Inpatient (IN) | payer MEDICAID ==
[~2024-05-23] VITALS: Ht 160 cm; Wt 71.8 kg
[~2024-05-23 09:47] MED LIST: ALCO1PAD13 XX; BACDST PO; BLOO1KIT XX; CYA100I IM; DICY10CA PO; GLUC-224 VI; HYDR-4902 PO; INSU100I51 SC; INSU100I67 SC; LANC28MI39 XX; METF-489 PO; SITA25TA3 PO
--- NOTE | 2024-05-23 10:59 | ED.PDOC ---
History of Present Illness HPI Comments 44 y/o F, with a Hx of DM, nephrolithiasis s/p nephrostomy tube and bag placement, presents with c/o non-radiating, left-sided flank pain, today. Patient endorses on unprovoked and sudden onset of pain, last night, emanating from her nephrostomy tube site. She describes pain as constant and ranks it a 9/10. She informs on tube's placement on 05/18/24 by Vic Jiang for "kidney stones." Patient reports no further relevant or additional recent Hx, such as injury or spoiled food intake. She denies having any hematuria, nausea, vomiting, fever, chills, or other associated symptoms or modifiers at this time. Chief Complaint: Flank Pain Time Seen by MD: 10:15 Primary Care Provider: HUMA Reviewed Notes: Nurses Notes, Medications, Allergies Allergies: Coded Allergies: NO KNOWN ALLERGIES (Unverified , 03/27/21) Home Meds Active Scripts Lancets (EASY TOUCH LANCETS) 28 G Mis, G XX QID, #120 0 Refills Prov:SLIM JJ MD 05/18/24 Isopropyl Alcohol (Alcohol Swabs) 70 % Pad, % XX QID, #120 0 Refills Prov:SLIM JJ MD 05/18/24 Glucose Blood (EASY TOUCH GLUCOSE TEST S) Strips Yara, 1 EA QID for 30 Days, #120 MISC Prov:SLIM JJ MD 05/18/24 Blood Glucose Monitoring Suppl (mm Easy Touch Blood Gluco W/Device) 1 Kit Kit, KIT XX QID, #1 0 Refills Prov:SLIM JJ MD 05/18/24 Insulin Aspart (Insulin Aspart Flexpen) 100 Unit/Ml Inj, 10 UNIT SC TIDWM for 30 Days, #1 INJ 4 Refills Prov:SLIM JJ MD 05/18/24 Insulin Detemir (Levemir Flexpen) 100 Unit/Ml Inj, 15 UNIT SC QPM for 30 Days, #1 INJ 1 Refill Prov:SLIM JJ MD 05/18/24 Sitagliptin Phosphate (Januvia) 25 Mg Tab, 25 MG PO DAILY for 30 Days, #30 TAB 1 Refill Prov:SLIM JJ MD 05/18/24 Metformin Hydrochloride (METFORMIN HCL ER) 500 Mg Tab, 1 TAB PO DAILY, #30 TAB 2 Refills Prov:SLIM JJ MD 05/18/24 Dicyclomine Hcl (BENTYL CAPSULE) 10 Mg Cp, 1 CAP PO TIDPRN PRN for 30 Days, #30 CAP 0 Refills Prov:SLIM JJ MD 05/18/24 Hydrocodone-Acetaminophen (Hydrocodone Bitartrate/AC 5-325 mg) 1 Tab Tab, 1 TAB PO TIDPRN PRN for 7 Days, #21 TAB 0 Refills Prov:SLIM JJ MD 05/18/24 Sulfamethoxazole W/Trimethopri (Bactrim Ds Tablet) 1 Tab Tb, 1 TAB PO BID for 10 Days, #20 TAB 0 Refills Prov:SLIM JJ MD 05/18/24 Reported Medications Vitamin B12 (Vitamin B-12) 1,000 Mcg/1 Ml Ij, 1000 MCG IM, INJ 05/15/24 Information Source: Patient Mode of Arrival: Ambulatory Severity: Moderate Timing: Days Duration: Since onset Prehospital treatment: None Past Medical History PAST MEDICAL HISTORY: DM, Kidney Stones Surgical History (Other): nephrostomy tube and bag placement 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 Family History Family History: Unknown Social History Smoker: Non-Smoker Alcohol: Denies ETOH Use Drugs: Denies Drug Use Lives In: Home Constitutional: denies: chills, diaphoresis, fatigue, fever, malaise, sweats, weakness, others EENTM: denies: blurred vision, double vision, ear bleeding, ear discharge, ear drainage, ear pain, ear ringing, eye pain, eye redness, hearing loss, mouth pain, mouth swelling, nasal discharge, nose bleeding, nose congestion, nose pain, photophobia, tearing, throat pain, throat swelling, voice changes, others Respiratory: denies: cough, hemoptysis, orthopnea, SOB at rest, shortness of breath, SOB with excertion, stridor, wheezing, others Cardiovascular: denies: chest pain, dizzy spells, diaphoresis, Dyspnea on exertion, edema, irregular heart beat, left arm pain, lightheadedness, palpitations, PND, syncope, others Gastrointestinal: denies: abdomen distended, abdominal pain, blood streaked bowels, constipated, diarrhea, dysphagia, difficulty swallowing, hematemesis, melena, nausea, poor appetite, poor fluid intake, rectal bleeding, rectal pain, vomiting, others Genitourinary: reports: flank pain (left-flank); denies: abnormal vagina bleeding, burning, dyspareunia, dysuria, frequency, hematuria, incontinence, pain, , vagina discharge, urgency, others Neurological: denies: dizziness, fainting, headache, left sided numbness, left sided weakness, numbness, paresthesia, pre-existing deficit, right sided numbness, right sided weakness, seizure, speech problems, tingling, tremors, weakness, others Musculoskeletal: denies: back pain, gout, joint pain, joint swelling, muscle pain, muscle stiffness, neck pain, others Integumetry: denies: bruises, change in color, change in hair/nails, dryness, laceration, lesions, lumps, rash, wounds, others Allergic/Immunocompromised: denies: Difficulty Healing, Frequent Infections, Hives, Itching, others Hematologic/Lymphatic: denies: anemia, blood clots, easy bleeding, easy bruising, swollen glands, others Endocrine: denies: excessive hunger, excessive sweating, excessive thirst, excessive urination, flushing, intolerance to cold, intolerance to heat, unexplained weight gain, unexplained weight loss, others Psychiatric: denies: anxiety, bipolar disorder, depression, hopeless, panic disorder, schizophrenia, sleepless, suicidal, others All Other Systems: Reviewed and Negative Physical Exam General Appearance: Moderate Distress HEENT: Normal ENT Inspection, Pharynx Normal, TMs Normal Neck: Full Range of Motion, Non-Tender, Normal, Normal Inspection Respiratory: Chest Non-Tender, Lungs Clear, No Accessory Muscle Use, No Resp iratory Distress, Normal Breath Sounds Cardiovascular: No Edema, No JVD, No Murmur, No Gallop, Normal Peripheral Pulses, Regular Rate/Rhythm Breast Exam: Deferred Gastrointestinal: No Organomegaly, Non Tender, No Pulsatile Mass, Normal Bowel Sounds, Soft Genitalia: Deferred Pelvic: Deferred Rectal: Deferred Extremities: No calf tenderness, Normal capillary refill, Normal inspection, Normal range of motion, Non-tender, No pedal edema Musculoskeletal : Location: Left Extremity Location: Back Apperance: Tenderness: Moderate, Other (Nephrostomy tube in place) Neurologic: Alert, manager hair II-XII nml as Tested, No Motor Deficits, Normal Affect, Normal Mood, No Sensory Deficits Cerebellar Function: Normal Reflexes: Normal Skin: Dry, Normal Color, Warm Lymphatic: No Adenopathy Was a procedure done? Was a procedure done?: No Differential Dx Considerations may include: nephrolithiasis, post-op complication, sepsis X-Ray, Labs, Meds, VS Vital Signs Date Time Temp Pulse Resp B/P (MAP) Pulse Ox O2 Delivery O2 Flow Rate FiO2 05/23/24 17:00 90 14 104/60 (75) 99 05/23/24 14:00 98.1 90 16 99/53 (68) 99 98.1 05/23/24 11:04 90 16 93/54 (67) 98 05/23/24 10:14 98.0 90 19 104/62 (76) 100 Lab Test 05/23/24 12:06 05/23/24 10:34 Range/Units Urine Color Yellow Yellow Urine Clarity Turbid H Clear Urine pH 6.0 5.0-9.0 Urine Specific [place] 1.016 1.001-1.035 Urine Protein 1+ H Negative Urine Ketones 2+ H Negative Urine Blood 3+ H Negative /uL Urine Nitrite Negative Negative Urine Bilirubin Negative Negative Urine Urobilinogen Normal Negative mg/dL Urine Leukocyte Esterase 3+ Negative /uL Urine RBC 70 0 - 4 /hpf Urine WBC 132 0 - 5 /hpf Urine Squamous Epithelial Cells Few <5 /hpf Urine Bacteria None seen None Seen /hpf Urine Hyaline Casts Few 0 - 2 /lpf Urine Mucus Few None Seen Urine Glucose Trace Normal mg/dL White Blood Count 5.5 4.4-10.8 10^3/uL Red Blood Count 3.90 L 4.0-5.20 10^6/uL Hemoglobin 11.4 #L 12.2-16.2 g/dL Hematocrit 33.9 #L 36.0-46.0 % Mean Corpuscular Volume 86.9 80.0-100.0 fL Mean Corpuscular Hemoglobin 29.2 28.0-32.0 pg Mean Corpuscular Hemoglobin Concent 33.6 32.0-36.0 g/dL Red Cell Distribution Width 13.2 11.8-14.3 % Platelet Count 259 140-450 10^3/uL Mean Platelet Volume 8.0 6.9-10.8 fL Neutrophils (%) (Auto) 72.0 37.0-80.0 % Lymphocytes (%) (Auto) 16.9 10.0-50.0 % Monocytes (%) (Auto) 10.0 0.0-12.0 % Eosinophils (%) (Auto) 0.6 0.0-7.0 % Basophils (%) (Auto) 0.5 0.0-2.0 % Neutrophils # (Auto) 4.0 1.6-8.6 10 ^3/uL Lymphocytes # (Auto) 0.9 0.4-5.4 10 ^3/uL Monocytes # (Auto) 0.6 0-1.3 10 ^3/uL Eosinophils # (Auto) 0 0-0.8 10 ^3/uL Basophils # (Auto) 0 0-0.2 10 ^3/uL Nucleated Red Blood Cells 0.0 % Sodium Level 132 #L 136-145 mmol/L Potassium Level 3.9 3.5-5.1 mmol/L Chloride Level 100 98-107 mmol/L Carbon Dioxide Level 26 20-31 mmol/L Anion Gap 6 5-15 Blood Urea Nitrogen 9 9-23 mg/dL Creatinine 0.68 0.550-1.02 mg/dL Glomerular Filtration Rate Calc 109 >90 mL/min BUN/Creatinine Ratio 13.2 10.0-20.0 Serum Glucose 160 H 74-106 mg/dL Calcium Level 8.9 8.7-10.4 mg/dL Current Medications Medications (Trade) Dose Ordered Sig/Yasmine Route Start Time Stop Time Status Last Admin Sodium Chloride 1,000 ml @ 1,000 mls/hr Q1H ONCE IV 05/23/24 17:15 05/23/24 18:14 DC 05/23/24 17:34 Ceftriaxone Sodium 50 ml @ 100 mls/hr ONCE ONCE IV 05/23/24 17:15 05/23/24 17:44 DC 05/23/24 17:34 CT scan of the abdomen and pelvis shows: IMPRESSION: 1. Interval placement of a left double-J stent in the left kidney and urinary bladder. 3.2 cm hyperdense mass in the periphery of the left kidney suspicious for a subcapsular hematoma. Stones in the left renal pelvis and upper pole of the left kidney similar to prior study. No significant hydronephrosis. The patient's CBC is within normal limits The chemistry panel is within normal limits except for mild hyperglycemia The urine test is positive for a significant UTI There is a concern that this could be developing to pyelonephritis and sepsis The patient's blood pressure was 99/53 The patient will be treated with a fluid After the blood cultures were done, the patient was started on Rocephin 1 g IV piggyback Images Reviewed?: Images reviewed and evaluated by me Time of 1ST Reevaluation: 10:45 Reevaluation 1ST: Unchanged Patient Education/Counseling: Diagnosis, Treatment, Prognosis Family Education/Counseling: No Family Present Departure 1 Departure Time of Disposition: 17:06 Impression: Primary Impression: Kidney stone Additional Impression: Flank pain Disposition: 09 ADMITTED INPATIENT Admit to: Med Surg Condition: Fair Critical Care Note Critical Care Time?: No Stability Stability form required: Yes Unstable for transfer: ED Physician Assesment (Clinical assesment) Heart Score Heart Score: Heart Score Response (Comments) Value History N/A 0 EKG N/A 0 Age N/A 0 Risk Factors N/A 0 Troponin N/A 0 Total 0 I personally scribed for JOSE CEDILLO MD ([email or web address]) on 05/23/24 at 10:59. Electronically submitted by El Lam ([email or web address]). JOSE CEDILLO MD May 23, 2024 10:59
[2024-05-23] MEDS: MORPHINE SULFATE 4 MG/ML SYR/VIAL IV ONE (11:03)
[2024-05-23] MEDS: ONDANSETRON HCL 4 MG/2 ML VIAL IV ONE (11:03)
--- NOTE | 2024-05-23 11:11 | DVH ---
Exam: CT CT AB PEL WO CON-NO ORAL OR IV History: Left flank pain Comparison Study: CT of the abdomen pelvis dated 05/14/2024 Technique: Multidetector spiral CT of the abdomen and pelvis was performed from lung bases to pubic s ymphysis. Imaging was performed without intravenous contrast. Coronal and sagittal multiplanar refor mats were obtained from the axial data set by the technologist. Radiation Dose : 1. Abdomen/Pelvis: CTDIvol 7.11 mGy, DLP 374.9 mGy*cm. Findings: Evaluation of vasculature and solid organs is limited due to lack of intravenous contrast use. Lung Bases: Lung bases are clear. Visualized portions of the heart and pericardium are unremarkable. Liver: The liver is normal in size. No focal lesions. Gallbladder and Biliary Tree: The gallbladder is unremarkable. No intrahepatic or extrahepatic bilia ry ductal dilatation. Spleen: Unremarkable Pancreas: The pancreas is grossly unremarkable. Adrenal Glands: Unremarkable Kidneys: There is interval placement of a left double-J nephroureteral stent with tips coiled in the left renal pelvis and the distal portion coiled in the urinary bladder. There is a persistent stone a t the left ureteropelvic junction measuring 2.4 cm. Additional intrarenal calculi in the upper pole o f the left kidney measuring 1.6 cm. Resorption of gas since prior study. There is heterogeneous att enuation of the left kidney. A hyperdense mass in the peripheral interpolar region measures 3.2 cm s uspicious for subcapsular hematoma. Left kidney is also slightly larger than on previous study compat ible with edema. No significant left hydronephrosis. Mild left perinephric fat stranding extending c audally in the retroperitoneum. Right kidney is grossly unremarkable without intrarenal calculi or hy dronephrosis. GI tract: The stomach is grossly normal in appearance. No evidence of small bowel wall thickening or abnormal dilatation to suggest bowel obstruction. The colon is unremarkable. The appendix is visual ized and is normal. Peritoneum/mesentery/retroperitoneum. No evidence of free intraperitoneal air. No ascites. No large r etroperitoneal fluid collection. No evidence of suspicious lymphadenopathy. Abdominal Wall: Unremarkable. Vasculature: The visualized abdominal aorta is normal in size and caliber. Evaluation of abdominal a nd pelvic vessels is limited due to lack of intravenous contrast. Urinary Bladder: Grossly unremarkable for degree of distention. Pelvic Organs: Unremarkable Musculoskeletal: No aggressive focal bony lesions, acute fractures or dislocation. IMPRESSION: 1. Interval placement of a left double-J stent in the left kidney and urinary bladder. 3.2 cm hyperde nse mass in the periphery of the left kidney suspicious for a subcapsular hematoma. Stones in the lef t renal pelvis and upper pole of the left kidney similar to prior study. No significant hydronephrosi s.
[2024-05-23 11:19] LABS: Chloride 100 mmol/L (98-107); Potassium 3.9 mmol/L (3.5-5.1)
[2024-05-23 11:20] LABS: Anion Gap 6 (5-15); Calcium 8.9 mg/dL (8.7-10.4); Carbon Dioxide 26 mmol/L (20-31)
[2024-05-23 11:25] LABS: BUN/Creatinine Ratio 13.2 (10.0-20.0)
[2024-05-23 11:26] LABS: Blood Urea Nitrogen 9 mg/dL (9-23); Glucose 160 mg/dL (74-106); Sodium 132 mmol/L (136-145)
[2024-05-23 11:27] LABS: Basophils # (auto) 0 10 ^3/uL (0-0.2); Basophils % (auto) 0.5 % (0.0-2.0); Eosinophils # (auto) 0 10 ^3/uL (0-0.8); Eosinophils % (auto) 0.6 % (0.0-7.0); Hematocrit 33.9 % (36.0-46.0); Hemoglobin 11.4 g/dL (12.2-16.2); Lymphocytes # (auto) 0.9 10 ^3/uL (0.4-5.4); Lymphocytes % (auto) 16.9 % (10.0-50.0); Mean Corpuscular Hemoglobin 29.2 pg (28.0-32.0); Mean Corpuscular Hgb Conc. 33.6 g/dL (32.0-36.0); Mean Corpuscular Volume 86.9 fL (80.0-100.0); Monocytes # (auto) 0.6 10 ^3/uL (0-1.3); Platelet Count (auto) 259 10^3/uL (140-450); Red Cell Distribution Width 13.2 % (11.8-14.3); White Blood Cell 5.5 10^3/uL (4.4-10.8)
[2024-05-23 14:25] LABS: Urine Bacteria None Seen /hpf (None Seen)
[2024-05-23 14:52] LABS: Urine Blood 3+ /uL (Negative); Urine Clarity Turbid (Clear); Urine Color Yellow (Yellow); Urine Hyaline Cast FEW /lpf (0 - 2); Urine Mucus FEW (None Seen); Urine Protein, UAD 1+ (Negative); Urine Specific Gravity 1.016 (1.001-1.035); Urine Squamous Epithelial Cell FEW /hpf (<5); Urine Urobilinogen Normal (Negative); Urine WBC 132 /hpf (0 - 5)
[2024-05-23] MEDS ORDERED: MORPHINE SULFATE INJ 2 MG/ml SYRG IV PRN (17:30)
[2024-05-23] MEDS: cefTRIAXone 1GM/50ML D5W 50 ML IV ONE ×2 (17:34→18:29)
[2024-05-23] MEDS: SODIUM CHLORIDE 0.9% 1,000 ML IV ONE (17:34)
[2024-05-23 17:37] VITALS: RESP 17; O2SAT 98
--- NOTE | 2024-05-23 17:51 | DVHHP2 ---
History of Present Illness History of Present Illness 44 y/o F, with a Hx of DM, nephrolithiasis s/p nephrostomy tube and bag placement, presents with c/o left flank pain. On a.m. prior to ER visit patient developed worsening non-radiating, left-sided flank pain. Patient pain started last night, unprovoked and emanating from her nephrostomy tube site but the pain was tolerable. On a.m. of admit day patient woke up and had worsening of the pain which is described as constant and ranks it a 9/10. She informs on tube's placement on 05/18/24 by direction of Vic Jiang for "kidney stones.", plac ed by IR. Patient will discharge with antibiotics, and has been compliant. She denies having any hematuria, nausea, vomiting, fever, chills. Patient is unable to pee from urethra. But she does have adequate amount of urine in left nephrostomy bag. Review of Systems Review of Systems Per HPI Allergies: Coded Allergies: NO KNOWN ALLERGIES (Unverified , 03/27/21) Exam Vital Signs Vital Signs Date Time Temp Pulse Resp B/P (MAP) Pulse Ox O2 Delivery O2 Flow Rate FiO2 05/23/24 17:00 90 14 104/60 (75) 99 05/23/24 14:00 98.1 98.1 Exam GEN: Healthy appearing, well-developed, NAD. HEENT: NC/AT; MMM. CV: RRR, no m/r/g. LUNGS: CTAB, no w/r/c. ABD: Soft, NT/ND, NBS, no masses or organomegaly. : Left CVA region with nephrostomy tube present. No swelling or erythema around tube, no drainage, overlying dressing is CDI. No CVA tenderness bilaterally. No suprapubic tenderness EXT: skin Warm, well perfused. no rashes. No clubbing, cyanosis, or edema. NEURO: Ambulating with no limitations. No focal deficits. Labs/Xrays Labs Test 05/23/24 12:06 05/23/24 10:34 Range/Units Urine Color Yellow Yellow Urine Clarity Turbid H Clear Urine pH 6.0 5.0-9.0 Urine Specific [place] 1.016 1.001-1.035 Urine Protein 1+ H Negative Urine Ketones 2+ H Negative Urine Blood 3+ H Negative /uL Urine Nitrite Negative Negative Urine Bilirubin Negative Negative Urine Urobilinogen Normal Negative mg/dL Urine Leukocyte Esterase 3+ Negative /uL Urine RBC 70 0 - 4 /hpf Urine WBC 132 0 - 5 /hpf Urine Squamous Epithelial Cells Few <5 /hpf Urine Bacteria None seen None Seen /hpf Urine Hyaline Casts Few 0 - 2 /lpf Urine Mucus Few None Seen Urine Glucose Trace Normal mg/dL White Blood Count 5.5 4.4-10.8 10^3/uL Red Blood Count 3.90 L 4.0-5.20 10^6/uL Hemoglobin 11.4 #L 12.2-16.2 g/dL Hematocrit 33.9 #L 36.0-46.0 % Mean Corpuscular Volume 86.9 80.0-100.0 fL Mean Corpuscular Hemoglobin 29.2 28.0-32.0 pg Mean Corpuscular Hemoglobin Concent 33.6 32.0-36.0 g/dL Red Cell Distribution Width 13.2 11.8-14.3 % Platelet Count 259 140-450 10^3/uL Mean Platelet Volume 8.0 6.9-10.8 fL Neutrophils (%) (Auto) 72.0 37.0-80.0 % Lymphocytes (%) (Auto) 16.9 10.0-50.0 % Monocytes (%) (Auto) 10.0 0.0-12.0 % Eosinophils (%) (Auto) 0.6 0.0-7.0 % Basophils (%) (Auto) 0.5 0.0-2.0 % Neutrophils # (Auto) 4.0 1.6-8.6 10 ^3/uL Lymphocytes # (Auto) 0.9 0.4-5.4 10 ^3/uL Monocytes # (Auto) 0.6 0-1.3 10 ^3/uL Eosinophils # (Auto) 0 0-0.8 10 ^3/uL Basophils # (Auto) 0 0-0.2 10 ^3/uL Nucleated Red Blood Cells 0.0 % Sodium Level 132 #L 136-145 mmol/L Potassium Level 3.9 3.5-5.1 mmol/L Chloride Level 100 98-107 mmol/L Carbon Dioxide Level 26 20-31 mmol/L Anion Gap 6 5-15 Blood Urea Nitrogen 9 9-23 mg/dL Creatinine 0.68 0.550-1.02 mg/dL Glomerular Filtration Rate Calc 109 >90 mL/min BUN/Creatinine Ratio 13.2 10.0-20.0 Serum Glucose 160 H 74-106 mg/dL Calcium Level 8.9 8.7-10.4 mg/dL Assessment/Plan Assessment/Plan # intractable left flank pain related to left nephrostomy tube with hematoma. Consult Urology, NPO midnight. P.r.n. pain control. Maintenance IV fluids # Complicated UTI possible .-UA with Luke WBC but no bacteria., we will send urine culture. We will start empiric antibiotics ceftriaxonece in anticipation of possible urology procedure/intervention. # uncontrolled diabetes--recent A1c more than 14. We will employ moderate a.c. HS sliding scale insulin Diet diabetic-NPO midnight GI prophylaxis tolerating p.o. DVT prophylaxis SCDs Med surge full code Plan discussed with: Patient, Daughter My Orders Orders - SLIM JJ MD Procedure Category Date Status Time Admit ADMIT 05/23/24 Verified 17:29 Code Status CODE 05/23/24 Verified 17:29 Renal DIET 05/23/24 Verified Standard(2gna,3gk,Lopho) Dinner Hydrocodone-Acet PHA 05/23/24 Verified 5/325mg Tab ([place] 17:30 Ondansetron Hcl PHA 05/23/24 Verified (Zofran) 17:30 Complete Blood Count LAB 05/24/24 Verified 04:00 Comprehensive LAB 05/24/24 Verified Metabolic Panel 04:00 Acetaminophen Tablet PHA 05/23/24 Verified (Tylenol Tablet) 17:30 Bedrest With Bathroom JASON 05/23/24 Verified Privileg 17:29 Morphine Sulfate PHA 05/23/24 Verified Injection 17:30 Npo After Midnight DIET 05/23/24 Verified Dinner * Urology Consult CONS 05/23/24 Verified 17:29 Date of Service: May 23, 2024 Billing Provider: SLIM JJ MD Common Visit Codes: [id number] INP/OBS CARE (HIGH) SLIM JJ MD May 23, 2024 17:50
[2024-05-23] MEDS ORDERED: DEXTROSE (50%) 50ML SYRG IV PRN (18:00)
[2024-05-23] MEDS: ACCU-CHEK COMFORT CURVE STRIP VI SCH (22:00)
[2024-05-23] MEDS: InsuLIN REG 1unit/0.01ml Soln (100units/ml) SC SCH (22:00)
[2024-05-23] MEDS: LACTATED RINGER'S 1,000 ML IV ONE (23:36)
[2024-05-24] VITALS (9 sets, daily range): BP systolic 95–107; BP diastolic 54–90; PULSE 71–117; RESP 12–18; TEMP 97.4–98.7; O2SAT 94–100
[2024-05-24] MEDS: InsuLIN REG 1unit/0.01ml Soln (100units/ml) SC SCH (07:00)
[2024-05-24 07:37] LABS: Basophils # (auto) 0 10 ^3/uL (0-0.2); Basophils % (auto) 0.7 % (0.0-2.0); Eosinophils # (auto) 0.1 10 ^3/uL (0-0.8); Eosinophils % (auto) 1.3 % (0.0-7.0); Hematocrit 29.9 % (36.0-46.0); Lymphocytes # (auto) 1.2 10 ^3/uL (0.4-5.4); Lymphocytes % (auto) 27.3 % (10.0-50.0); Mean Corpuscular Hemoglobin 28.9 pg (28.0-32.0); Mean Corpuscular Hgb Conc. 33.5 g/dL (32.0-36.0); Mean Corpuscular Volume 86.3 fL (80.0-100.0); Monocytes # (auto) 0.6 10 ^3/uL (0-1.3); Neutrophils # (auto) 2.5 10 ^3/uL (1.6-8.6); Neutrophils % (auto) 56.7 % (37.0-80.0); Platelet Count (auto) 241 10^3/uL (140-450); Red Blood Cells 3.47 10^6/uL (4.0-5.20); Red Cell Distribution Width 12.9 % (11.8-14.3); White Blood Cell 4.4 10^3/uL (4.4-10.8)
[2024-05-24 07:52] LABS: Alanine Aminotransferase 14 U/L (7-40); Alkaline Phosphatase 50 U/L (46-116); Anion Gap 4 (5-15); Aspartate Aminotransferase 16 U/L (13-40); BUN/Creatinine Ratio 16.4 (10.0-20.0); Carbon Dioxide 26 mmol/L (20-31); Chloride 107 mmol/L (98-107); Sodium 137 mmol/L (136-145)
[2024-05-24 07:53] LABS: Bilirubin, Total 0.5 mg/dL (0.2-1.0); Total Protein 6.4 g/dL (5.7-8.2)
[2024-05-24 07:58] LABS: Albumin 3.1 g/dL (3.2-4.8); Blood Urea Nitrogen 9 mg/dL (9-23); Calcium 8.5 mg/dL (8.7-10.4); Glucose 172 mg/dL (74-106)
[2024-05-24] MEDS: cefTRIAXone 1GM/50ML D5W 50 ML IV SCH (09:22)
--- NOTE | 2024-05-24 09:35 | DVHINCON2 ---
Date of service: May 24, 2024 Referring Physician Hospitalist Reason for Consultation Left renal stones, large s/p Left PNT History of Present Illness 44 y/o F, with a Hx of DM, nephrolithiasis s/p nephrostomy tube and bag placement, presents with c/o non-radiating, left-sided flank pain, today. Patient endorses on unprovoked and sudden onset of pain, last night, emanating from her nephrostomy tube site. She describes pain as constant and ranks it a 9/10. She informs on tube's placement on 05/18/24 by IR. Patient reports no further relevant or additional recent Hx, such as injury or spoiled food intake. She denies having any hematuria, nausea, vomiting, fever, chills, or other associated symptoms or modifiers at this time. Chief Complaint: Flank Pain Primary Care Provider: HUMA Reviewed Notes: Nurses Notes, Medications, Allergies Allergies: Coded Allergies: NO KNOWN ALLERGIES (Unverified , 03/27/21) Home Meds Active Scripts Lancets (EASY TOUCH LANCETS) 28 G Mis, G XX QID, #120 0 Refills Prov:SLIM JJ MD 05/18/24 Isopropyl Alcohol (Alcohol Swabs) 70 % Pad, % XX QID, #120 0 Refills Prov:SLIM JJ MD 05/18/24 Glucose Blood (EASY TOUCH GLUCOSE TEST S) Strips Yara, 1 EA QID for 30 Days, #120 MISC Prov:SLIM JJ MD 05/18/24 Blood Glucose Monitoring Suppl (mm Easy Touch Blood Gluco W/Device) 1 Kit Kit, KIT XX QID, #1 0 Refills Prov:SLIM JJ MD 05/18/24 Insulin Aspart (Insulin Aspart Flexpen) 100 Unit/Ml Inj, 10 UNIT SC TIDWM for 30 Days, #1 INJ 4 Refills Prov:SLIM JJ MD 05/18/24 Insulin Detemir (Levemir Flexpen) 100 Unit/Ml Inj, 15 UNIT SC QPM for 30 Days, #1 INJ 1 Refill Prov:SLIM JJ MD 05/18/24 Sitagliptin Phosphate (Januvia) 25 Mg Tab, 25 MG PO DAILY for 30 Days, #30 TAB 1 Refill Prov:SLIM JJ MD 05/18/24 Metformin Hydrochloride (METFORMIN HCL ER) 500 Mg Tab, 1 TAB PO DAILY, #30 TAB 2 Refills Prov:SLIM JJ MD 05/18/24 Dicyclomine Hcl (BENTYL CAPSULE) 10 Mg Cp, 1 CAP PO TIDPRN PRN for 30 Days, #30 CAP 0 Refills Prov:SLIM JJ MD 05/18/24 Hydrocodone-Acetaminophen (Hydrocodone Bitartrate/AC 5-325 mg) 1 Tab Tab, 1 TAB PO TIDPRN PRN for 7 Days, #21 TAB 0 Refills Prov:SLIM JJ MD 05/18/24 Sulfamethoxazole W/Trimethopri (Bactrim Ds Tablet) 1 Tab Tb, 1 TAB PO BID for 10 Days, #20 TAB 0 Refills Prov:SLIM JJ MD 05/18/24 Reported Medications Vitamin B12 (Vitamin B-12) 1,000 Mcg/1 Ml Ij, 1000 MCG IM, INJ 05/15/24 Information Source: Patient Mode of Arrival: Ambulatory Severity: Moderate Timing: Days Duration: Since onset Prehospital treatment: None Past Medical History DM, Kidney Stones Past Surgical History nephrostomy tube and bag placement 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 Allergies: Coded Allergies: NO KNOWN ALLERGIES (Unverified , 03/27/21) Home Meds Active Scripts Lancets (EASY TOUCH LANCETS) 28 G Mis, G XX QID, #120 0 Refills Prov:SLIM JJ MD 05/18/24 Isopropyl Alcohol (Alcohol Swabs) 70 % Pad, % XX QID, #120 0 Refills Prov:SLIM JJ MD 05/18/24 Glucose Blood (EASY TOUCH GLUCOSE TEST S) Strips Yara, 1 EA QID for 30 Days, #120 MISC Prov:SLIM JJ MD 05/18/24 Blood Glucose Monitoring Suppl (mm Easy Touch Blood Gluco W/Device) 1 Kit Kit, KIT XX QID, #1 0 Refills Prov:SLIM JJ MD 05/18/24 Insulin Aspart (Insulin Aspart Flexpen) 100 Unit/Ml Inj, 10 UNIT SC TIDWM for 30 Days, #1 INJ 4 Refills Prov:SLIM JJ MD 05/18/24 Insulin Detemir (Levemir Flexpen) 100 Unit/Ml Inj, 15 UNIT SC QPM for 30 Days, #1 INJ 1 Refill Prov:SLIM JJ MD 05/18/24 Sitagliptin Phosphate (Januvia) 25 Mg Tab, 25 MG PO DAILY for 30 Days, #30 TAB 1 Refill Prov:SLIM JJ MD 05/18/24 Metformin Hydrochloride (METFORMIN HCL ER) 500 Mg Tab, 1 TAB PO DAILY, #30 TAB 2 Refills Prov:SLIM JJ MD 05/18/24 Hydrocodone-Acetaminophen (Hydrocodone Bitartrate/AC 5-325 mg) 1 Tab Tab, 1 TAB PO TIDPRN PRN for 7 Days, #21 TAB 0 Refills Prov:SLIM JJ MD 05/18/24 Sulfamethoxazole W/Trimethopri (Bactrim Ds Tablet) 1 Tab Tb, 1 TAB PO BID for 10 Days, #20 TAB 0 Refills Prov:SLIM JJ MD 05/18/24 Current Medications Current Medications Medications (Trade) Dose Ordered Sig/Yasmine Route PRN Reason Start Time Stop Time Status Last Admin Acetaminophen/ Hydrocodone Bitart ([place] 5/325MG Tab) 1 tab Q4HP PRN PO MODERATE PAIN (4-6 PAIN SCALE) 05/23/24 17:30 Ondansetron HCl (Zofran) 4 mg Q4HP PRN IV NAUSEA / VOMITING 05/23/24 17:30 Acetaminophen (Tylenol Tablet) 650 mg Q6HP PRN PO PAIN SCALE 1-3 OR TEMP>100.4 05/23/24 17:30 Morphine Sulfate 2 mg Q4HPRN PRN IV SEVERE PAIN (7-10 PAIN SCALE) 05/23/24 17:30 Diagnostic Test (Pha) (Accu-Chek Comfort Curve T) 1 strip ACHS 05/23/24 22:00 05/24/24 07:19 Insulin Human Regular (InsuLIN R) HS SC 05/23/24 22:00 Insulin Human Regular (InsuLIN R) AC SC 05/24/24 07:00 Dextrose 50 ml UD PRN IV Blood Sugar LESS THAN 60 05/23/24 18:00 Ceftriaxone Sodium 50 ml @ 100 mls/hr DAILY@09 IV 05/24/24 09:00 05/24/24 09:22 Review of Systems Constitutional: denies: chills, diaphoresis, fatigue, fever, malaise, sweats, weakness, others EENTM: denies: blurred vision, double vision, ear bleeding, ear discharge, ear drainage, ear pain, ear ringing, eye pain, eye redness, hearing loss, mouth pain, mouth swelling, nasal discharge, nose bleeding, nose congestion, nose pain, photophobia, tearing, throat pain, throat swelling, voice changes, others Respiratory: denies: cough, hemoptysis, orthopnea, SOB at rest, shortness of breath, SOB with excertion, stridor, wheezing, others Cardiovascular: denies: chest pain, dizzy spells, diaphoresis, Dyspnea on exertion, edema, irregular heart beat, left arm pain, lightheadedness, palpitations, PND, syncope, others Gastrointestinal: denies: abdomen distended, abdominal pain, blood streaked bowels, constipated, diarrhea, dysphagia, difficulty swallowing, hematemesis, melena, nausea, poor appetite, poor fluid intake, rectal bleeding, rectal pain, vomiting, others Genitourinary: reports: flank pain (left-flank); denies: abnormal vagina bleeding, burning, dyspareunia, dysuria, frequency, hematuria, incontinence, pain, , vagina discharge, urgency, others Neurological: denies: dizziness, fainting, headache, left sided numbness, left sided weakness, numbness, paresthesia, pre-existing deficit, right sided numbness, right sided weakness, seizure, speech problems, tingling, tremors, weakness, others Musculoskeletal: denies: back pain, gout, joint pain, joint swelling, muscle pa in, muscle stiffness, neck pain, others Integumetry: denies: bruises, change in color, change in hair/nails, dryness, laceration, lesions, lumps, rash, wounds, others Allergic/Immunocompromised: denies: Difficulty Healing, Frequent Infections, Hives, Itching, others Hematologic/Lymphatic: denies: anemia, blood clots, easy bleeding, easy bruising, swollen glands, others Endocrine: denies: excessive hunger, excessive sweating, excessive thirst, excessive urination, flushing, intolerance to cold, intolerance to heat, unexplained weight gain, unexplained weight loss, others Psychiatric: denies: anxiety, bipolar disorder, depression, hopeless, panic disorder, schizophrenia, sleepless, suicidal, others All Other Systems: Reviewed and Negative Vital Signs Vital Signs Date Time Temp Pulse Resp B/P (MAP) Pulse Ox O2 Delivery O2 Flow Rate FiO2 05/24/24 05:00 97.9 71 14 103/56 (72) 98 97.9 05/24/24 03:06 Room Air* 0 21 Physical Exam General Appearance: Moderate Distress HEENT: Normal ENT Inspection, Pharynx Normal, TMs Normal Neck: Full Range of Motion, Non-Tender, Normal, Normal Inspection Respiratory: Chest Non-Tender, Lungs Clear, No Accessory Muscle Use, No Respiratory Distress, Normal Breath Sounds Cardiovascular: No Edema, No JVD, No Murmur, No Gallop, Normal Peripheral Pulses, Regular Rate/Rhythm Breast Exam: Deferred Gastrointestinal: No Organomegaly, Non Tender, No Pulsatile Mass, Normal Bowel Sounds, Soft Genitalia: Deferred Pelvic: Deferred Rectal: Deferred Extremities: No calf tenderness, Normal capillary refill, Normal inspection, Normal range of motion, Non-tender, No pedal edema Musculoskeletal : Location: Left Extremity Location: Back Apperance: Tenderness: Moderate, Other (Nephrostomy tube in place) Neurologic: Alert, core paster II-XII nml as Tested, No Motor Deficits, Normal Affect, Normal Mood, No Sensory Deficits Cerebellar Function: Normal Reflexes: Normal Skin: Dry, Normal Color, Warm Lymphatic: No Adenopathy Labs/Diagnostic Data Labs Test 05/24/24 07:19 05/24/24 06:28 05/23/24 17:57 05/23/24 12:06 Range/Units White Blood Count 4.4 4.4-10.8 10^3/uL Red Blood Count 3.47 L 4.0-5.20 10^6/uL Hemoglobin 10.0 L 12.2-16.2 g/dL Hematocrit 29.9 #L 36.0-46.0 % Mean Corpuscular Volume 86.3 80.0-100.0 fL Mean Corpuscular Hemoglobin 28.9 28.0-32.0 pg Mean Corpuscular Hemoglobin Concent 33.5 32.0-36.0 g/dL Red Cell Distribution Width 12.9 11.8-14.3 % Platelet Count 241 140-450 10^3/uL Mean Platelet Volume 7.8 6.9-10.8 fL Neutrophils (%) (Auto) 56.7 37.0-80.0 % Lymphocytes (%) (Auto) 27.3 10.0-50.0 % Monocytes (%) (Auto) 14.0 H 0.0-12.0 % Eosinophils (%) (Auto) 1.3 0.0-7.0 % Basophils (%) (Auto) 0.7 0.0-2.0 % Neutrophils # (Auto) 2.5 1.6-8.6 10 ^3/uL Lymphocytes # (Auto) 1.2 0.4-5.4 10 ^3/uL Monocytes # (Auto) 0.6 0-1.3 10 ^3/uL Eosinophils # (Auto) 0.1 0-0.8 10 ^3/uL Basophils # (Auto) 0 0-0.2 10 ^3/uL Nucleated Red Blood Cells 0.0 % Sodium Level 137 # 136-145 mmol/L Potassium Level 4.0 3.5-5.1 mmol/L Chloride Level 107 98-107 mmol/L Carbon Dioxide Level 26 20-31 mmol/L Anion Gap 4 L 5-15 Blood Urea Nitrogen 9 9-23 mg/dL Creatinine 0.55 0.550-1.02 mg/dL Glomerular Filtration Rate Calc 114 >90 mL/min BUN/Creatinine Ratio 16.4 10.0-20.0 Serum Glucose 172 H 74-106 mg/dL Calcium Level 8.5 L 8.7-10.4 mg/dL Total Bilirubin 0.5 0.2-1.0 mg/dL Aspartate Amino Transferase (AST) 16 13-40 U/L Alanine Aminotransferase (ALT) 14 7-40 U/L Alkaline Phosphatase 50 46-116 U/L Total Protein 6.4 5.7-8.2 g/dL Albumin 3.1 L 3.2-4.8 g/dL Beta HCG, Quantitative 1.2 L 1.5-4.2 mIU/mL POC Glucose 188 H 70-106 mg/dl Lactic Acid Level 0.8 0.4-2.0 mmol/L Urine Color Yellow Yellow Urine Clarity Turbid H Clear Urine pH 6.0 5.0-9.0 Urine Specific [place] 1.016 1.001-1.035 Urine Protein 1+ H Negative Urine Ketones 2+ H Negative Urine Blood 3+ H Negative /uL Urine Nitrite Negative Negative Urine Bilirubin Negative Negative Urine Urobilinogen Normal Negative mg/dL Urine Leukocyte Esterase 3+ Negative /uL Urine RBC 70 0 - 4 /hpf Urine WBC 132 0 - 5 /hpf Urine Squamous Epithelial Cells Few <5 /hpf Urine Bacteria None seen None Seen /hpf Urine Hyaline Casts Few 0 - 2 /lpf Urine Mucus Few None Seen Urine Glucose Trace Normal mg/dL Microbiology Date/Time Source Procedure Growth Status 05/23/24 12:06 Urine - [place] Urine Culture - Preliminary Resulted Assessment Left renal stones, large Left PNT in situ Plan/Recommendation Left PCNL Plan discussed with: Patient, Other AUGUSTA SMALL MD May 24, 2024 09:35
[2024-05-24] MEDS ORDERED: fentaNYL CITRATE 100 MCG/2 ML VL ONE (12:15)
[2024-05-24] MEDS ORDERED: MIDAZOLAM HCL 2MG/2ML 2ml VIAL (1mg/ml) ONE (12:15)
[2024-05-24] MEDS ORDERED: MEPERIDINE HCL (25 MG/ML) 1ML VIAL ONE (12:15)
[2024-05-24] MEDS ORDERED: DexAMETHasone SOD PHOS 10MG/1ML VIAL INJ ONE (12:54)
[2024-05-24] MEDS ORDERED: PROPOFOL 10 MG/ML 20 ML IV ONE (12:54)
--- NOTE | 2024-05-24 12:55 | DVHPN2 ---
Reviewed: Care Plan, H&P, Labs, Medications, Previous Orders, Radiology Changes from previous H/P or p: No Changes Objective Vitals Vital Signs Date Time Temp Pulse Resp B/P (MAP) Pulse Ox O2 Delivery O2 Flow Rate FiO2 05/24/24 09:06 98.2 89 16 107/90 (96) 98 98.2 05/24/24 08:30 Room Air* 0 21 Intake/Output Intake and Output 05/24/24 07:00 Intake Total 1150 ml Balance 1150 ml Intake Oral 100 ml IV Total 1050 ml Medications Current Medications Medications Dose Ordered Sig/Yasmien Route Start Time Stop Time Status Last Admin Dose Admin Acetaminophen/ Hydrocodone Bitart 1 tab Q4HP PRN PO 05/23/24 17:30 Ondansetron HCl 4 mg Q4HP PRN IV 05/23/24 17:30 Acetaminophen 650 mg Q6HP PRN PO 05/23/24 17:30 Morphine Sulfate 2 mg Q4HPRN PRN IV 05/23/24 17:30 Diagnostic Test (Pha) 1 strip ACHS 05/23/24 22:00 05/24/24 12:02 1 STRIP Insulin Human Regular HS SC 05/23/24 22:00 Insulin Human Regular AC SC 05/24/24 07:00 Dextrose 50 ml UD PRN IV 05/23/24 18:00 Ceftriaxone Sodium 50 ml @ 100 mls/hr DAILY@09 IV 05/24/24 09:00 05/24/24 09:22 100 MLS/HR Laboratory Results Laboratory Tests 05/24/24 07:19 Chemistry Test 05/24/24 07:19 Albumin 3.1 g/dL (3.2-4.8) L Calcium Level 8.5 mg/dL (8.7-10.4) L Total Protein 6.4 g/dL (5.7-8.2) LFT Test 05/24/24 07:19 Alanine Aminotransferase (ALT) 14 U/L (7-40) Alkaline Phosphatase 50 U/L (46-116) Aspartate Amino Transferase (AST) 16 U/L (13-40) Total Bilirubin 0.5 mg/dL (0.2-1.0) Urinalysis Test 05/23/24 12:06 Urine Color Yellow (Yellow) Urine Clarity Turbid (Clear) H Urine pH 6.0 (5.0-9.0) Urine Specific [place] 1.016 (1.001-1.035) Urine Protein 1+ (Negative) H Urine Ketones 2+ (Negative) H Urine Blood 3+ /uL (Negative) H Urine Nitrite Negative (Negative) Urine Bilirubin Negative (Negative) Urine Urobilinogen Normal mg/dL (Negative) Urine Leukocyte Esterase 3+ /uL (Negative) Urine RBC 70 /hpf (0 - 4) Urine WBC 132 /hpf (0 - 5) Urine Squamous Epithelial Cells Few /hpf (<5) Urine Bacteria None seen /hpf (None Seen) Urine Hyaline Casts Few /lpf (0 - 2) Urine Mucus Few (None Seen) Urine Glucose Trace mg/dL (Normal) Microbiology Microbiology Date/Time Source Procedure Growth Status 05/23/24 12:06 Urine - [place] Urine Culture - Preliminary Resulted Labs and/or images reviewed: Labs reviewed by me, Image(s) reviewed by me Assessment/Plan Assessment/Plan Acute left flank pain History of left kidney stone status post percutaneous nephrostomy tube: Urology consult by Dr. Sarah smith, planning for percutaneous nephrolithotripsy Uncontrolled diabetes: Insulin sliding scale Sepsis secondary to urinary tract infection blood cultures urine cultures Acute urinary tract infection: Rocephin Time spent 45 minutes Plan discussed with: Patient Date of Service: May 24, 2024 Billing Provider: MACKENZIE KEYS MD Common Visit Codes: [id number] INP/OBS CARE(HIGH) MACKENZIE KEYS MD May 24, 2024 12:55
[2024-05-24] MEDS ORDERED: MORPHINE SULFATE 4 MG/ML SYR/VIAL IV PRN (13:00)
[2024-05-24] MEDS ORDERED: MIDAZOLAM HCL 2MG/2ML 2ml VIAL (1mg/ml) IV PRN (13:00)
[2024-05-24] MEDS ORDERED: HYDROmorphone HCL 2 MG/ML VL/or syr IV PRN (13:00)
[2024-05-24] MEDS ORDERED: ePHEDrine SULFATE 50 MG/ML AMP IV PRN (13:00)
[2024-05-24] MEDS ORDERED: hydrALAZINE HCL 20 MG/ML VL IV PRN (13:00)
[2024-05-24] MEDS ORDERED: HYDROmorphone HCL 2 MG/ML VL/or syr ONE (13:36)
[2024-05-24] MEDS: LIDOCAINE W/ EPINEPHRINE 1% 20ML VIAL ONE ×2 (14:00→15:10)
--- NOTE | 2024-05-24 14:21 | POSTOP ---
Post-Operative Note Post-Operative Note Preop Diagnosis Left nephrolithiasis Left percutaneous nephrostomy tube in Situ Postop Diagnosis: Same Operation performed Left percutaneous nephrolithotripsy Specimen Renal stones Anesthesia: General Anesthesiologist: Tho Blood Loss(fluid mgmt) 250 ml Surgeon Augusta Small Date 05/24/24 Time 14:20 AUGUSTA SMALL MD May 24, 2024 14:21
[2024-05-24] MEDS: CIPROFLOXACIN 400MG/200ML 200 ML IV ONE (15:10)
[2024-05-24] MEDS: IOHEXOL 300 MG/ML 100ML BOTTLE IJ ONE (15:10)
[2024-05-24] MEDS: SUCCINYLCHOLINE CHLORIDE 20 MG/ML 10ML VIAL IV ONE (15:10)
--- NOTE | 2024-05-24 15:29 | DVH ---
C-ARM FLUOROSCOPY: PROCEDURE: Nephrostogram FLUOROSCOPY TIME: 312.4 DAP: 72.96 mgy FINDINGS: Spot intraoperative C arm radiographs demonstrating left nephrostogram/cystoscopy. IMPRESSION: Please refer to surgical report for detailed findings.
[2024-05-24 16:17] LABS: Hematocrit 26.6 % (36.0-46.0); Hemoglobin 8.7 g/dL (12.2-16.2)
[2024-05-24] MEDS: SODIUM CHLORIDE 0.9% 1,000 ML IV SCH (21:57)
[2024-05-24 23:40] LABS: Hematocrit 24.4 % (36.0-46.0); Hemoglobin 8.3 g/dL (12.2-16.2)
[2024-05-25] VITALS (7 sets, daily range): BP systolic 95–114; BP diastolic 34–63; PULSE 16–100; RESP 17–99; TEMP 97.5–99.1; O2SAT 95–99
[2024-05-25 06:58] LABS: Hematocrit 21.6 % (36.0-46.0); Hemoglobin 7.4 g/dL (12.2-16.2)
--- NOTE | 2024-05-25 08:32 | DVHPN2 ---
Reviewed: Care Plan, H&P, Labs, Medications, Previous Orders, Radiology Changes from previous H/P or p: No Changes Objective Vitals Vital Signs Date Time Temp Pulse Resp B/P (MAP) Pulse Ox O2 Delivery O2 Flow Rate FiO2 05/25/24 05:00 97.9 83 17 99/61 (74) 95 97.9 05/24/24 20:00 Room Air* 0 21 Intake/Output Intake and Output 05/25/24 07:00 Intake Total 430 ml Output Total 1250 ml Balance -820 ml Intake Oral 380 ml IV Total 50 ml Output Urine Total 1250 ml Medications Current Medications Medications Dose Ordered Sig/Yasmine Route Start Time Stop Time Status Last Admin Dose Admin Acetaminophen/ Hydrocodone Bitart 1 tab Q4HP PRN PO 05/23/24 17:30 Ondansetron HCl 4 mg Q4HP PRN IV 05/23/24 17:30 Acetaminophen 650 mg Q6HP PRN PO 05/23/24 17:30 Morphine Sulfate 2 mg Q4HPRN PRN IV 05/23/24 17:30 Diagnostic Test (Pha) 1 strip ACHS 05/23/24 22:00 05/25/24 06:39 1 STRIP Insulin Human Regular HS SC 05/23/24 22:00 05/24/24 21:58 6 UNITS Insulin Human Regular AC SC 05/24/24 07:00 05/24/24 17:01 9 UNITS Dextrose 50 ml UD PRN IV 05/23/24 18:00 Ceftriaxone Sodium 50 ml @ 100 mls/hr DAILY@09 IV 05/24/24 09:00 05/24/24 09:22 100 MLS/HR Sodium Chloride 1,000 ml @ 100 mls/hr Q10H IV 05/24/24 20:45 05/24/24 21:57 100 MLS/HR Laboratory Results Laboratory Tests 05/24/24 07:19 05/25/24 06:02 Urinalysis Test 05/23/24 12:06 Urine Color Yellow (Yellow) Urine Clarity Turbid (Clear) H Urine pH 6.0 (5.0-9.0) Urine Specific [place] 1.016 (1.001-1.035) Urine Protein 1+ (Negative) H Urine Ketones 2+ (Negative) H Urine Blood 3+ /uL (Negative) H Urine Nitrite Negative (Negative) Urine Bilirubin Negative (Negative) Urine Urobilinogen Normal mg/dL (Negative) Urine Leukocyte Esterase 3+ /uL (Negative) Urine RBC 70 /hpf (0 - 4) Urine WBC 132 /hpf (0 - 5) Urine Squamous Epithelial Cells Few /hpf (<5) Urine Bacteria None seen /hpf (None Seen) Urine Hyaline Casts Few /lpf (0 - 2) Urine Mucus Few (None Seen) Urine Glucose Trace mg/dL (Normal) Microbiology Microbiology Date/Time Source Procedure Growth Status 05/23/24 17:57 Blood Blood Culture - Preliminary NO GROWTH AFTER 24 HOURS OF INCUBATION. Resulted 05/23/24 12:06 Urine - [place] Urine Culture - Preliminary Resulted Labs and/or images reviewed: Labs reviewed by me, Image(s) reviewed by me Assessment/Plan Assessment/Plan Acute left flank pain History of left kidney stone status post percutaneous nephrostomy tube: Status post Left percutaneous nephrolithotripsy by Urology Dr. Jiang on 05/24/2024 Uncontrolled diabetes: Insulin sliding scale Sepsis secondary to urinary tract infection blood cultures negative, urine cultures negative, continue Rocephin Acute urinary tract infection: Rocephin Postop anemia drop of hemoglobin from 10 to 7.4 , we will watch and transfuse if needed Time spent 45 minutes Examined the patient with the help of grease press helper, patient is refusing blood transfusion. PCP Dr. Luiza Rehman Plan discussed with: Patient My Orders Orders - MACKENZIE KEYS MD Procedure Category Date Status Time Kub Abdomen Single XY 05/24/24 Resulted View 14:31 C Arm Fluoroscopy Up XY 05/24/24 Resulted To 60min 14:31 Date of Service: May 25, 2024 Billing Provider: MACKENZIE KEYS MD Common Visit Codes: [id number] INP/OBS CARE(HIGH) MACKENZIE KEYS MD May 25, 2024 08:32
[2024-05-25] MEDS: ACETAMINOPHEN 325 MG TAB PO PRN (13:23)
[2024-05-25] MEDS ORDERED: SODIUM CHLORIDE 0.9% 500 ML IV ONE (19:45)
--- NOTE | 2024-05-25 19:52 | DVHPN2 ---
Progress Note - Dictate Date Seen: May 25, 2024 Has the PT tested + for MRSA If YES, has PT been informed?: No Medical Necessity Reason Pt with a Central, PICC or Fol: Yes The following are medically ne: [place] Catheter Medical Necessity Reason POD#1 s/p left PCNL Subjective No pain reported. vital signs Vital Sign Date Time Temp Pulse Resp B/P (MAP) Pulse Ox O2 Delivery O2 Flow Rate FiO2 05/25/24 17:00 98.4 95 20 95/34 (54) 96 98.4 05/25/24 08:00 Room Air* 0 21 Total Intake and Output 05/24/24 05/24/24 05/25/24 14:59 22:59 06:59 Intake Total 50 ml 380 ml Output Total 100 ml 200 ml 950 ml Balance -50 ml 180 ml -950 ml medications Current Medications Medications Dose Ordered Sig/Yasmine Route Start Time Stop Time Status Last Admin Dose Admin Acetaminophen/ Hydrocodone Bitart 1 tab Q4HP PRN PO 05/23/24 17:30 Ondansetron HCl 4 mg Q4HP PRN IV 05/23/24 17:30 Acetaminophen 650 mg Q6HP PRN PO 05/23/24 17:30 05/25/24 13:23 650 MG Morphine Sulfate 2 mg Q4HPRN PRN IV 05/23/24 17:30 Diagnostic Test (Pha) 1 strip ACHS 05/23/24 22:00 05/25/24 17:00 1 STRIP Insulin Human Regular HS SC 05/23/24 22:00 05/24/24 21:58 6 UNITS Insulin Human Regular AC SC 05/24/24 07:00 05/25/24 17:00 3 UNITS Dextrose 50 ml UD PRN IV 05/23/24 18:00 Ceftriaxone Sodium 50 ml @ 100 mls/hr DAILY@09 IV 05/24/24 09:00 05/25/24 10:04 100 MLS/HR Sodium Chloride 1,000 ml @ 100 mls/hr Q10H IV 05/24/24 20:45 05/25/24 16:45 100 MLS/HR objective Hemoglobin is down to 7.4. Left PNT still with hematuria [place] : urine heme tinged pink color laboratory and microbiology Laboratory Tests 05/25/24 06:02 05/24/24 07:19 Test 05/24/24 07:19 Range/Units Serum Glucose 172 H 74-106 mg/dL Problem List POD#1 s/p PNCL Anemia secondary to blood loss Assessment/Plan d/c [place] Transfuse 1 unit PRBC for falling hemoglobin Prognosis good Plan discussed with: Patient, Spouse AUGUSTA SMALL MD May 25, 2024 19:52
[2024-05-25] MEDS: SODIUM CHLORIDE 0.9% 500 ML IV ONE (20:20)
[2024-05-26] VITALS (9 sets, daily range): BP systolic 90–132; BP diastolic 45–68; PULSE 83–97; RESP 16–20; TEMP 98–99.3; O2SAT 95–99
--- NOTE | 2024-05-26 09:16 | DVHPN2 ---
Reviewed: Care Plan, H&P, Labs, Medications, Previous Orders, Radiology Changes from previous H/P or p: No Changes Objective Vitals Vital Signs Date Time Temp Pulse Resp B/P (MAP) Pulse Ox O2 Delivery O2 Flow Rate FiO2 05/26/24 08:15 Room Air* 0 21 05/26/24 06:03 99.3 86 20 102/63 99.3 05/26/24 05:00 96 Intake/Output Intake and Output 05/26/24 07:00 Intake Total 3800 ml Output Total 4775 ml Balance -975 ml Intake Oral 1250 ml IV Total 1950 ml Blood Product 300 ml Other 300 ml Output Urine Total 3450 ml Drainage Total 650 ml Other 675 ml Medications Current Medications Medications Dose Ordered Sig/Yasmine Route Start Time Stop Time Status Last Admin Dose Admin Acetaminophen/ Hydrocodone Bitart 1 tab Q4HP PRN PO 05/23/24 17:30 Ondansetron HCl 4 mg Q4HP PRN IV 05/23/24 17:30 Acetaminophen 650 mg Q6HP PRN PO 05/23/24 17:30 05/26/24 08:57 650 MG Morphine Sulfate 2 mg Q4HPRN PRN IV 05/23/24 17:30 Diagnostic Test (Pha) 1 strip ACHS 05/23/24 22:00 05/26/24 06:47 1 STRIP Insulin Human Regular HS SC 05/23/24 22:00 05/25/24 23:14 3 UNITS Insulin Human Regular AC SC 05/24/24 07:00 05/26/24 06:47 3 UNITS Dextrose 50 ml UD PRN IV 05/23/24 18:00 Ceftriaxone Sodium 50 ml @ 100 mls/hr DAILY@09 IV 05/24/24 09:00 05/26/24 08:59 100 MLS/HR Sodium Chloride 1,000 ml @ 100 mls/hr Q10H IV 05/24/24 20:45 05/26/24 02:45 100 MLS/HR Laboratory Results Laboratory Tests 05/24/24 07:19 05/25/24 06:02 Urinalysis Test 05/23/24 12:06 Urine Color Yellow (Yellow) Urine Clarity Turbid (Clear) H Urine pH 6.0 (5.0-9.0) Urine Specific [place] 1.016 (1.001-1.035) Urine Protein 1+ (Negative) H Urine Ketones 2+ (Negative) H Urine Blood 3+ /uL (Negative) H Urine Nitrite Negative (Negative) Urine Bilirubin Negative (Negative) Urine Urobilinogen Normal mg/dL (Negative) Urine Leukocyte Esterase 3+ /uL (Negative) Urine RBC 70 /hpf (0 - 4) Urine WBC 132 /hpf (0 - 5) Urine Squamous Epithelial Cells Few /hpf (<5) Urine Bacteria None seen /hpf (None Seen) Urine Hyaline Casts Few /lpf (0 - 2) Urine Mucus Few (None Seen) Urine Glucose Trace mg/dL (Normal) Microbiology Microbiology Date/Time Source Procedure Growth Status 05/23/24 17:57 Blood Blood Culture - Preliminary NO GROWTH AFTER 48 HOURS OF INCUBATION. Resulted 05/23/24 12:06 Urine - [place] Urine Culture - Final Complete Labs and/or images reviewed: Labs reviewed by me, Image(s) reviewed by me Assessment/Plan Assessment/Plan Acute left flank pain History of left kidney stone status post percutaneous nephrostomy tube: Status post Left percutaneous nephrolithotripsy by Urology Dr. Jiang on 05/24/2024 Uncontrolled diabetes: Insulin sliding scale Sepsis secondary to urinary tract infection blood cultures negative, urine cultures negative, continue Rocephin Acute urinary tract infection: Rocephin Postop anemia drop of hemoglobin from 10 to 7.4 , 1 unit RBC transfusion given, awaiting repeat hemoglobin Nephrostomy tube draining blood mixed with urine, will inform Urology Dr. Jiang Time spent 45 minutes Examined the patient with the help of travel pt PCP Dr. Luiza Rehman Plan discussed with: Patient Date of Service: May 26, 2024 Billing Provider: MACKENZIE KEYS MD Common Visit Codes: [id number] INP/OBS CARE(HIGH) MACKENZIE KEYS MD May 26, 2024 09:16
[2024-05-26 09:40] LABS: Basophils # (auto) 0 10 ^3/uL (0-0.2); Eosinophils # (auto) 0 10 ^3/uL (0-0.8); Eosinophils % (auto) 0.3 % (0.0-7.0); Hematocrit 25.1 % (36.0-46.0); Hemoglobin 8.4 g/dL (12.2-16.2); Mean Corpuscular Hemoglobin 28.5 pg (28.0-32.0); Monocytes # (auto) 0.6 10 ^3/uL (0-1.3); Red Cell Distribution Width 14.4 % (11.8-14.3)
[2024-05-26 09:43] LABS: Basophils % (auto) 0.3 % (0.0-2.0); Lymphocytes # (auto) 1.2 10 ^3/uL (0.4-5.4); Lymphocytes % (auto) 15.9 % (10.0-50.0); Mean Corpuscular Hgb Conc. 33.4 g/dL (32.0-36.0); Mean Corpuscular Volume 85.3 fL (80.0-100.0); Monocytes % (auto) 7.6 % (0.0-12.0); Neutrophils # (auto) 5.8 10 ^3/uL (1.6-8.6); Neutrophils % (auto) 75.9 % (37.0-80.0); Nucleated Red Blood Cells % 0.1 %; Platelet Count (auto) 251 10^3/uL (140-450); Red Blood Cells 2.94 10^6/uL (4.0-5.20); White Blood Cell 7.6 10^3/uL (4.4-10.8)
[2024-05-26 10:02] LABS: Alanine Aminotransferase 13 U/L (7-40); Alkaline Phosphatase 48 U/L (46-116); Anion Gap 5 (5-15); Aspartate Aminotransferase 23 U/L (13-40); BUN/Creatinine Ratio 8.3 (10.0-20.0); Bilirubin, Total 0.5 mg/dL (0.2-1.0); Carbon Dioxide 26 mmol/L (20-31); Chloride 105 mmol/L (98-107); Potassium 4.1 mmol/L (3.5-5.1); Sodium 136 mmol/L (136-145); Total Protein 5.8 g/dL (5.7-8.2)
[2024-05-26 10:04] LABS: Albumin 2.7 g/dL (3.2-4.8); Blood Urea Nitrogen 5 mg/dL (9-23); Calcium 8.3 mg/dL (8.7-10.4); Glucose 194 mg/dL (74-106)
--- NOTE | 2024-05-26 11:27 | DVHPN2 ---
Progress Note - Dictate Date Seen: May 26, 2024 Has the PT tested + for MRSA If YES, has PT been informed?: No Medical Necessity Reason Pt with a Central, PICC or Fol: Yes Medical Necessity Reason s/p Left PCNL Left nephrostomy tube in place s/p PRBC transfusion Subjective No pain reported. vital signs Vital Sign Date Time Temp Pulse Resp B/P (MAP) Pulse Ox O2 Delivery O2 Flow Rate FiO2 05/26/24 09:00 98.9 96 17 132/64 (86) 95 98.9 05/26/24 08:15 Room Air* 0 21 Total Intake and Output 05/25/24 05/25/24 05/26/24 15:00 23:00 07:00 Intake Total 550 ml 1050 ml 2200 ml Output Total 1375 ml 1300 ml 2100 ml Balance -825 ml -250 ml 100 ml medications Current Medications Medications Dose Ordered Sig/Yasmine Route Start Time Stop Time Status Last Admin Dose Admin Acetaminophen/ Hydrocodone Bitart 1 tab Q4HP PRN PO 05/23/24 17:30 Ondansetron HCl 4 mg Q4HP PRN IV 05/23/24 17:30 Acetaminophen 650 mg Q6HP PRN PO 05/23/24 17:30 05/26/24 08:57 650 MG Morphine Sulfate 2 mg Q4HPRN PRN IV 05/23/24 17:30 Diagnostic Test (Pha) 1 strip ACHS 05/23/24 22:00 05/26/24 06:47 1 STRIP Insulin Human Regular HS SC 05/23/24 22:00 05/25/24 23:14 3 UNITS Insulin Human Regular AC SC 05/24/24 07:00 05/26/24 06:47 3 UNITS Dextrose 50 ml UD PRN IV 05/23/24 18:00 Ceftriaxone Sodium 50 ml @ 100 mls/hr DAILY@09 IV 05/24/24 09:00 05/26/24 08:59 100 MLS/HR Sodium Chloride 1,000 ml @ 100 mls/hr Q10H IV 05/24/24 20:45 05/26/24 02:45 100 MLS/HR objective Hemoglobin is down to 7.4. -> 8.4 after 1 unit transfusion Left PNT still with hematuria laboratory and microbiology Laboratory Tests 05/26/24 08:59 Test 12/26/24 08:59 Range/Units Serum Glucose 194 H 74-106 mg/dL Problem List POD#2 s/p PNCL Anemia secondary to blood loss Assessment/Plan d/c [place]- done Transfuse 1 unit PRBC for falling hemoglobin- done Keep left PNT in place until urine clear. Then, it will be clamped and subsequently removed. Plan discussed with: Patient, Spouse, Son CC Plasma Assessment Blood Product Administration S: [id number] AUGUSTA SMALL MD May 26, 2024 11:27
[2024-05-27 01:00] VITALS: BP 99/66; PULSE 77; RESP 17; TEMP 98; O2SAT 97
[2024-05-27 05:00] VITALS: BP 112/75; PULSE 81; RESP 17; TEMP 98.2; O2SAT 98
[2024-05-27 06:37] LABS: Basophils # (auto) 0 10 ^3/uL (0-0.2); Basophils % (auto) 0.5 % (0.0-2.0); Eosinophils # (auto) 0.1 10 ^3/uL (0-0.8); Eosinophils % (auto) 0.8 % (0.0-7.0); Hematocrit 25.3 % (36.0-46.0); Hemoglobin 8.6 g/dL (12.2-16.2); Lymphocytes # (auto) 1.2 10 ^3/uL (0.4-5.4); Lymphocytes % (auto) 18.1 % (10.0-50.0); Mean Corpuscular Hemoglobin 28.9 pg (28.0-32.0); Mean Corpuscular Volume 85.1 fL (80.0-100.0); Monocytes # (auto) 0.5 10 ^3/uL (0-1.3); Monocytes % (auto) 7.6 % (0.0-12.0); Nucleated Red Blood Cells % 0.1 %; Platelet Count (auto) 299 10^3/uL (140-450); Red Blood Cells 2.97 10^6/uL (4.0-5.20); Red Cell Distribution Width 14.4 % (11.8-14.3); White Blood Cell 6.9 10^3/uL (4.4-10.8)
--- NOTE | 2024-05-27 07:51 | DVHPN2 ---
Reviewed: Care Plan, H&P, Labs, Medications, Previous Orders, Radiology Changes from previous H/P or p: No Changes Objective Vitals Vital Signs Date Time Temp Pulse Resp B/P (MAP) Pulse Ox O2 Delivery O2 Flow Rate FiO2 05/27/24 05:00 98.2 81 17 112/75 (87) 98 98.2 05/26/24 20:00 Room Air* 0 21 Intake/Output Intake and Output 05/27/24 07:00 Intake Total 2220 ml Output Total 1125 ml Balance 1095 ml Intake Oral 770 ml IV Total 1450 ml Drainage Total 1125 ml # Voids 3 # Bowel Movements 1 Medications Current Medications Medications Dose Ordered Sig/Yasmine Route Start Time Stop Time Status Last Admin Dose Admin Acetaminophen/ Hydrocodone Bitart 1 tab Q4HP PRN PO 05/23/24 17:30 Ondansetron HCl 4 mg Q4HP PRN IV 05/23/24 17:30 Acetaminophen 650 mg Q6HP PRN PO 05/23/24 17:30 05/26/24 20:14 650 MG Morphine Sulfate 2 mg Q4HPRN PRN IV 05/23/24 17:30 Diagnostic Test (Pha) 1 strip ACHS 05/23/24 22:00 05/27/24 05:26 1 STRIP Insulin Human Regular HS SC 05/23/24 22:00 05/26/24 20:54 2 UNITS Insulin Human Regular AC SC 05/24/24 07:00 05/26/24 18:28 2 UNITS Dextrose 50 ml UD PRN IV 05/23/24 18:00 Ceftriaxone Sodium 50 ml @ 100 mls/hr DAILY@09 IV 05/24/24 09:00 05/26/24 08:59 100 MLS/HR Sodium Chloride 1,000 ml @ 100 mls/hr Q10H IV 05/24/24 20:45 05/27/24 02:08 100 MLS/HR Laboratory Results Laboratory Tests 05/26/24 08:59 05/27/24 05:28 Chemistry Test 05/26/24 08:59 Albumin 2.7 g/dL (3.2-4.8) L Calcium Level 8.3 mg/dL (8.7-10.4) L Total Protein 5.8 g/dL (5.7-8.2) LFT Test 05/26/24 08:59 Alanine Aminotransferase (ALT) 13 U/L (7-40) Alkaline Phosphatase 48 U/L (46-116) Aspartate Amino Transferase (AST) 23 U/L (13-40) Total Bilirubin 0.5 mg/dL (0.2-1.0) Urinalysis Test 05/23/24 12:06 Urine Color Yellow (Yellow) Urine Clarity Turbid (Clear) H Urine pH 6.0 (5.0-9.0) Urine Specific [place] 1.016 (1.001-1.035) Urine Protein 1+ (Negative) H Urine Ketones 2+ (Negative) H Urine Blood 3+ /uL (Negative) H Urine Nitrite Negative (Negative) Urine Bilirubin Negative (Negative) Urine Urobilinogen Normal mg/dL (Negative) Urine Leukocyte Esterase 3+ /uL (Negative) Urine RBC 70 /hpf (0 - 4) Urine WBC 132 /hpf (0 - 5) Urine Squamous Epithelial Cells Few /hpf (<5) Urine Bacteria None seen /hpf (None Seen) Urine Hyaline Casts Few /lpf (0 - 2) Urine Mucus Few (None Seen) Urine Glucose Trace mg/dL (Normal) Microbiology Microbiology Date/Time Source Procedure Growth Status 05/23/24 17:57 Blood Blood Culture - Preliminary NO GROWTH AFTER 72 HOURS OF INCUBATION. Resulted 05/23/24 12:06 Urine - [place] Urine Culture - Final Complete Labs and/or images reviewed: Labs reviewed by me, Image(s) reviewed by me Assessment/Plan Assessment/Plan Acute left flank pain History of left kidney stone status post percutaneous nephrostomy tube: Status post Left percutaneous nephrolithotripsy by Urology Dr. Jiang on 05/24/2024 Uncontrolled diabetes: Insulin sliding scale Sepsis secondary to urinary tract infection blood cultures negative, urine cultures negative, continue Rocephin Acute urinary tract infection: Rocephin Postop blood loss anemia drop of hemoglobin from 10 to 7.4 , 1 unit RBC transfusion given, hemoglobin improved to 8.6 and stable, patient was reviewed by Urology , [place] removed, left nephrostomy tube in place , to be clamped when urine is clear Nephrostomy tube draining blood mixed with urine, will inform Urology Dr. Jiang Time spent 45 minutes Examined the patient with the help of intramural director PCP Dr. Luiza Rehman Plan discussed with: Patient My Orders Orders - MACKENZIE KEYS MD Procedure Category Date Status Time Stone Analysis Urinary LAB 05/26/24 In Process 08:53 Date of Service: May 27, 2024 Billing Provider: MACKENZIE KEYS MD Common Visit Codes: [id number] INP/OBS CARE(HIGH) MACKENZIE KEYS MD May 27, 2024 07:51
[2024-05-27 09:00] VITALS: BP 109/72; PULSE 84; RESP 18; TEMP 98.6; O2SAT 97
[2024-05-27 13:00] VITALS: BP 102/63; PULSE 75; RESP 20; TEMP 98.1; O2SAT 99
[2024-05-27 16:59] VITALS: BP 109/71; PULSE 91; RESP 18; TEMP 98.3; O2SAT 97
--- NOTE | 2024-05-27 19:43 | DVHPN2 ---
Progress Note - Dictate Date Seen: May 27, 2024 Has the PT tested + for MRSA If YES, has PT been informed?: No Medical Necessity Reason Pt with a Central, PICC or Fol: No Subjective pain controlled. doing well vital signs Vital Sign Date Time Temp Pulse Resp B/P (MAP) Pulse Ox O2 Delivery O2 Flow Rate FiO2 05/27/24 16:59 98.3 91 18 109/71 (84) 97 98.3 05/27/24 08:15 Room Air* 0 21 Total Intake and Output 05/26/24 05/26/24 05/27/24 15:00 23:00 07:00 Intake Total 50 ml 520 ml 1650 ml Output Total 875 ml 250 ml Balance 50 ml -355 ml 1400 ml medications Current Medications Medications Dose Ordered Sig/Yasmine Route Start Time Stop Time Status Last Admin Dose Admin Acetaminophen/ Hydrocodone Bitart 1 tab Q4HP PRN PO 05/23/24 17:30 Ondansetron HCl 4 mg Q4HP PRN IV 05/23/24 17:30 Acetaminophen 650 mg Q6HP PRN PO 05/23/24 17:30 05/27/24 17:22 650 MG Morphine Sulfate 2 mg Q4HPRN PRN IV 05/23/24 17:30 Diagnostic Test (Pha) 1 strip ACHS 05/23/24 22:00 05/27/24 17:22 1 STRIP Insulin Human Regular HS SC 05/23/24 22:00 05/26/24 20:54 2 UNITS Insulin Human Regular AC SC 05/24/24 07:00 05/27/24 17:31 6 UNITS Dextrose 50 ml UD PRN IV 05/23/24 18:00 Ceftriaxone Sodium 50 ml @ 100 mls/hr DAILY@09 IV 05/24/24 09:00 05/27/24 08:57 100 MLS/HR Sodium Chloride 1,000 ml @ 100 mls/hr Q10H IV 05/24/24 20:45 05/27/24 18:35 100 MLS/HR objective hematuria noted in left PCN. clots within the drainage bag. leaking about the nephrostomy site. Tender during dressing change laboratory and microbiology Laboratory Tests 05/27/24 05:28 05/26/24 08:59 Test 05/26/24 08:59 Range/Units Serum Glucose 194 H 74-106 mg/dL Assessment/Plan encourage fluids lay prone as able monitor output will plug when clear. pt was signed out to for weekend coverage. Problems(with codes): (1) Kidney stone (2) Flank pain (3) Diabetes mellitus with hyperglycemia Prognosis good Plan discussed with: Patient, Other CC Plasma Assessment Blood Product Administration S: 0230 TIM WHALEN NP May 27, 2024 19:43
[2024-05-27 21:00] VITALS: BP 105/68; PULSE 88
[2024-05-28] VITALS (8 sets, daily range): BP systolic 90–115; BP diastolic 53–78; PULSE 77–96; RESP 16–20; TEMP 98–99; O2SAT 96–100
[2024-05-28] MEDS: HYDROcodone-ACET 5/325MG TAB PO PRN (04:55)
[2024-05-28 07:05] LABS: Basophils # (auto) 0 10 ^3/uL (0-0.2); Eosinophils # (auto) 0.1 10 ^3/uL (0-0.8); Hemoglobin 7.2 g/dL (12.2-16.2); Lymphocytes # (auto) 1.7 10 ^3/uL (0.4-5.4); Monocytes # (auto) 0.6 10 ^3/uL (0-1.3); White Blood Cell 5.8 10^3/uL (4.4-10.8)
[2024-05-28 07:08] LABS: Basophils % (auto) 0.7 % (0.0-2.0); Eosinophils % (auto) 1.8 % (0.0-7.0); Hematocrit 21.9 % (36.0-46.0); Lymphocytes % (auto) 28.9 % (10.0-50.0); Mean Corpuscular Hemoglobin 28.4 pg (28.0-32.0); Mean Corpuscular Hgb Conc. 33.1 g/dL (32.0-36.0); Mean Corpuscular Volume 85.9 fL (80.0-100.0); Monocytes % (auto) 10.5 % (0.0-12.0); Neutrophils # (auto) 3.4 10 ^3/uL (1.6-8.6); Neutrophils % (auto) 58.1 % (37.0-80.0); Nucleated Red Blood Cells % 0.1 %; Platelet Count (auto) 298 10^3/uL (140-450); Red Blood Cells 2.55 10^6/uL (4.0-5.20)
--- NOTE | 2024-05-28 08:00 | DVHPN2 ---
Reviewed: Care Plan, H&P, Labs, Medications, Previous Orders, Radiology Changes from previous H/P or p: No Changes Objective Vitals Vital Signs Date Time Temp Pulse Resp B/P (MAP) Pulse Ox O2 Delivery O2 Flow Rate FiO2 05/28/24 04:47 98.4 78 18 105/67 (80) 99 98.4 05/27/24 20:00 Room Air* 0 21 Intake/Output Intake and Output 05/28/24 07:00 Intake Total 1150 ml Output Total 608 ml Balance 542 ml Intake Oral 1150 ml Output Urine Total 3 ml Drainage Total 605 ml # Voids 2 Medications Current Medications Medications Dose Ordered Sig/Yasmine Route Start Time Stop Time Status Last Admin Dose Admin Acetaminophen/ Hydrocodone Bitart 1 tab Q4HP PRN PO 05/23/24 17:30 05/28/24 04:55 1 TAB Ondansetron HCl 4 mg Q4HP PRN IV 05/23/24 17:30 Acetaminophen 650 mg Q6HP PRN PO 05/23/24 17:30 05/27/24 22:35 650 MG Morphine Sulfate 2 mg Q4HPRN PRN IV 05/23/24 17:30 Diagnostic Test (Pha) 1 strip ACHS 05/23/24 22:00 05/28/24 06:27 1 STRIP Insulin Human Regular HS SC 05/23/24 22:00 05/26/24 20:54 2 UNITS Insulin Human Regular AC SC 05/24/24 07:00 05/27/24 17:31 6 UNITS Dextrose 50 ml UD PRN IV 05/23/24 18:00 Ceftriaxone Sodium 50 ml @ 100 mls/hr DAILY@09 IV 05/24/24 09:00 05/27/24 08:57 100 MLS/HR Sodium Chloride 1,000 ml @ 100 mls/hr Q10H IV 05/24/24 20:45 05/27/24 18:35 100 MLS/HR Laboratory Results Laboratory Tests 05/26/24 08:59 05/28/24 06:09 Urinalysis Test 05/23/24 12:06 Urine Color Yellow (Yellow) Urine Clarity Turbid (Clear) H Urine pH 6.0 (5.0-9.0) Urine Specific [place] 1.016 (1.001-1.035) Urine Protein 1+ (Negative) H Urine Ketones 2+ (Negative) H Urine Blood 3+ /uL (Negative) H Urine Nitrite Negative (Negative) Urine Bilirubin Negative (Negative) Urine Urobilinogen Normal mg/dL (Negative) Urine Leukocyte Esterase 3+ /uL (Negative) Urine RBC 70 /hpf (0 - 4) Urine WBC 132 /hpf (0 - 5) Urine Squamous Epithelial Cells Few /hpf (<5) Urine Bacteria None seen /hpf (None Seen) Urine Hyaline Casts Few /lpf (0 - 2) Urine Mucus Few (None Seen) Urine Glucose Trace mg/dL (Normal) Microbiology Microbiology Date/Time Source Procedure Growth Status 05/23/24 17:57 Blood Blood Culture - Preliminary NO GROWTH AFTER 72 HOURS OF INCUBATION. Resulted 05/23/24 12:06 Urine - [place] Urine Culture - Final Complete Labs and/or images reviewed: Labs reviewed by me, Image(s) reviewed by me Assessment/Plan Assessment/Plan Acute left flank pain History of left kidney stone status post percutaneous nephrostomy tube: Status post Left percutaneous nephrolithotripsy by Urology Dr. Jiang on 05/24/2024 Uncontrolled diabetes: Insulin sliding scale Sepsis secondary to urinary tract infection blood cultures negative, urine cultures negative, continue Rocephin Acute urinary tract infection: Rocephin Postop blood loss anemia drop of hemoglobin from 10 to 7.4 , 1 unit RBC transfusion given, hemoglobin improved to7.2 and stable, patient was reviewed by Urology , [place] removed, left nephrostomy tube in place , to be clamped when urine is clear Nephrostomy tube draining blood mixed with urine, will inform Urology Dr. Jiang Time spent 45 minutes Examined the patient with the help of fishing rod marker PCP Dr. Luiza Rehman Plan discussed with: Patient My Orders Orders - MACKENZIE KEYS MD Procedure Category Date Status Time Consistent DIET 05/28/24 Transmitted Carb(Ccho)Diabetes Breakfast Date of Service: May 28, 2024 Billing Provider: MACKENZIE KEYS MD Common Visit Codes: [id number] INP/OBS CARE(HIGH) MACKENZIE KEYS MD May 28, 2024 08:00
[2024-05-28] MEDS: ONDANSETRON HCL 4 MG/2 ML VIAL IV ONE (08:08)
[2024-05-28] MEDS: KETOROLAC TROMETH 30 MG/ML 1ML VIAL IV ONE (08:08)
[2024-05-28] MEDS: PANTOPRAZOLE 40 MG/10 ML VIAL INJ IV ONE (14:31)
--- NOTE | 2024-05-28 16:30 | DVHINCON2 ---
Date of service: May 28, 2024 Referring Physician Robin Reason for Consultation wound bleeding s/p left percutaneous nephrostolithotomy History of Present Illness underwent left percutaneous nephrostolithotomy 05/[address] Jiang having some oozing of blood around and in nephrostomywhich appears to be draining well; vs stable but hgb decrsed requiring transfuse one unit PC Past Medical History reviewed Past Surgical History reviewed Family History: Patient reports no known family medical history. Allergies: Coded Allergies: NO KNOWN ALLERGIES (Unverified , 03/27/21) Home Meds Active Scripts Lancets (EASY TOUCH LANCETS) 28 G Mis, G XX QID, #120 0 Refills Prov:SLIM JJ MD 05/18/24 Isopropyl Alcohol (Alcohol Swabs) 70 % Pad, % XX QID, #120 0 Refills Prov:SLIM JJ MD 05/18/24 Glucose Blood (EASY TOUCH GLUCOSE TEST S) Strips Yara, 1 EA QID for 30 Days, #120 MISC Prov:SLIM JJ MD 05/18/24 Blood Glucose Monitoring Suppl (mm Easy Touch Blood Gluco W/Device) 1 Kit Kit, KIT XX QID, #1 0 Refills Prov:SLIM JJ MD 05/18/24 Insulin Aspart (Insulin Aspart Flexpen) 100 Unit/Ml Inj, 10 UNIT SC TIDWM for 30 Days, #1 INJ 4 Refills Prov:SLIM JJ MD 05/18/24 Insulin Detemir (Levemir Flexpen) 100 Unit/Ml Inj, 15 UNIT SC QPM for 30 Days, #1 INJ 1 Refill Prov:SLIM JJ MD 05/18/24 Sitagliptin Phosphate (Januvia) 25 Mg Tab, 25 MG PO DAILY for 30 Days, #30 TAB 1 Refill Prov:SLIM JJ MD 05/18/24 Metformin Hydrochloride (METFORMIN HCL ER) 500 Mg Tab, 1 TAB PO DAILY, #30 TAB 2 Refills Prov:SLIM JJ MD 05/18/24 Hydrocodone-Acetaminophen (Hydrocodone Bitartrate/AC 5-325 mg) 1 Tab Tab, 1 TAB PO TIDPRN PRN for 7 Days, #21 TAB 0 Refills Prov:SLIM JJ MD 05/18/24 Sulfamethoxazole W/Trimethopri (Bactrim Ds Tablet) 1 Tab Tb, 1 TAB PO BID for 10 Days, #20 TAB 0 Refills Prov:SLIM JJ MD 05/18/24 Current Medications Current Medications Medications (Trade) Dose Ordered Sig/Yasmine Route PRN Reason Start Time Stop Time Status Last Admin Pantoprazole Sodium (Protonix) 40 mg BID IV 05/28/24 22:00 Review of Systems reviewed Vital Signs Vital Signs Date Time Temp Pulse Resp B/P (MAP) Pulse Ox O2 Delivery O2 Flow Rate FiO2 05/28/24 13:00 98.2 77 20 104/70 (81) 98 98.2 05/28/24 08:15 Room Air* 0 21 Physical Exam nephrostomy in place draining urine with moderate blood tinge and few clots; continuous ooze arounf tube wetting bandages Labs/Diagnostic Data Labs Test 05/28/24 12:23 05/28/24 06:09 05/26/24 08:59 05/26/24 08:53 Range/Units POC Glucose 183 H 70-106 mg/dl White Blood Count 5.8 4.4-10.8 10^3/uL Red Blood Count 2.55 L 4.0-5.20 10^6/uL Hemoglobin 7.2 #L 12.2-16.2 g/dL Hematocrit 21.9 #L 36.0-46.0 % Mean Corpuscular Volume 85.9 80.0-100.0 fL Mean Corpuscular Hemoglobin 28.4 28.0-32.0 pg Mean Corpuscular Hemoglobin Concent 33.1 32.0-36.0 g/dL Red Cell Distribution Width 14.0 11.8-14.3 % Platelet Count 298 140-450 10^3/uL Mean Platelet Volume 7.8 6.9-10.8 fL Neutrophils (%) (Auto) 58.1 37.0-80.0 % Lymphocytes (%) (Auto) 28.9 10.0-50.0 % Monocytes (%) (Auto) 10.5 0.0-12.0 % Eosinophils (%) (Auto) 1.8 0.0-7.0 % Basophils (%) (Auto) 0.7 0.0-2.0 % Neutrophils # (Auto) 3.4 1.6-8.6 10 ^3/uL Lymphocytes # (Auto) 1.7 0.4-5.4 10 ^3/uL Monocytes # (Auto) 0.6 0-1.3 10 ^3/uL Eosinophils # (Auto) 0.1 0-0.8 10 ^3/uL Basophils # (Auto) 0 0-0.2 10 ^3/uL Nucleated Red Blood Cells 0.1 % Sodium Level 136 136-145 mmol/L Potassium Level 4.1 3.5-5.1 mmol/L Chloride Level 105 98-107 mmol/L Carbon Dioxide Level 26 20-31 mmol/L Anion Gap 5 5-15 Blood Urea Nitrogen 5 L 9-23 mg/dL Creatinine 0.60 0.550-1.02 mg/dL Glomerular Filtration Rate Calc 112 >90 mL/min BUN/Creatinine Ratio 8.3 L 10.0-20.0 Serum Glucose 194 H 74-106 mg/dL Calcium Level 8.3 L 8.7-10.4 mg/dL Total Bilirubin 0.5 0.2-1.0 mg/dL Aspartate Amino Transferase (AST) 23 13-40 U/L Alanine Aminotransferase (ALT) 13 7-40 U/L Alkaline Phosphatase 48 46-116 U/L Total Protein 5.8 5.7-8.2 g/dL Albumin 2.7 L 3.2-4.8 g/dL Test 05/24/24 07:19 05/23/24 17:57 05/23/24 12:06 Range/Units Beta HCG, Quantitative 1.2 L 1.5-4.2 mIU/mL Lactic Acid Level 0.8 0.4-2.0 mmol/L Urine Color Yellow Yellow Urine Clarity Turbid H Clear Urine pH 6.0 5.0-9.0 Urine Specific [place] 1.016 1.001-1.035 Urine Protein 1+ H Negative Urine Ketones 2+ H Negative Urine Blood 3+ H Negative /uL Urine Nitrite Negative Negative Urine Bilirubin Negative Negative Urine Urobilinogen Normal Negative mg/dL Urine Leukocyte Esterase 3+ Negative /uL Urine RBC 70 0 - 4 /hpf Urine WBC 132 0 - 5 /hpf Urine Squamous Epithelial Cells Few <5 /hpf Urine Bacteria None seen None Seen /hpf Urine Hyaline Casts Few 0 - 2 /lpf Urine Mucus Few None Seen Urine Glucose Trace Normal mg/dL Microbiology Date/Time Source Procedure Growth Status 05/23/24 17:57 Blood Blood Culture - Preliminary NO GROWTH AFTER 72 HOURS OF INCUBATION. Resulted 05/23/24 12:06 Urine - [place] Urine Culture - Final Complete Assessment as above Plan/Recommendation CT AP to r/o retroperitoneal hematoma and tube placement Plan discussed with: Patient VIC KEVIN MD May 28, 2024 16:30
--- NOTE | 2024-05-28 16:44 | DVH ---
Exam: CT CT AB PEL WO CON-NO ORAL OR IV History: LEFT NEPHROSTOMY LEAKING BLOOD Comparison Study: 05/23/2024 TECHNIQUE: Multidetector CT of the abdomen was performed from lung bases to pubic symphysis. Imaging was performed without IV contrast. Axial, coronal and sagittal multiplanar reformats were obtained fr om the axial data set by the technologist. Radiation Dose Information: CT Dose: CTDI volume is 10.54 mGy. Dose-length product is 599.97 mGy*cm FINDINGS: Evaluation of solid organs is limited due to lack of intravenous contrast use. Findings: Lung Bases: Noncalcified pulmonary nodule right posterior costophrenic angle. Not present on prior st udy of 05/23/2024 most likely an area of atelectasis. Normal heart size. No pleural or pericardial e ffusion. Liver: The liver is normal in size. No focal lesions. Gallbladder and Biliary Tree: Unremarkable Spleen: Unremarkable Pancreas: The pancreas is grossly normal in appearance. Adrenal Glands: Unremarkable Kidneys: Enlarged heterogeneous left kidney with nephrostomy tube in place. Is not appear significant ly changed from 05/23/2024. Persistent left perirenal stranding Bladder: Left ureteral stent has been removed. Gas is noted in the bladder as well as urine. Bowel: The stomach is grossly normal in appearance. Small bowel and colon are normal in caliber and d istribution. The appendix is not visualized; however, no secondary findings of acute appendicitis id entified. Ascites: Absent Lymphadenopathy: No mesenteric, retroperitoneal or periportal lymphadenopathy. Abdominal Wall and Mesentery: Unremarkable. Vasculature: The visualized abdominal aorta is normal in size and caliber. Evaluation of abdominal a nd pelvic vessels is limited due to lack of intravenous contrast. Pelvic Organs: Unremarkable Musculoskeletal: No aggressive focal bony lesions, acute fractures or dislocation. Soft tissues: Unremarkable IMPRESSION: 1. No change in the appearance of the left kidney which is enlarged and heterogeneous containing a ne phrostomy tube. This is compared to 05/23/2024 2. Left ureteral stent has been removed. 3. There is now gas bladder. Radiation optimization: All CT scans at this facility use at least one of these dose optimization gato hniques: automated exposure control mA and/or kV adjustment per patient size (includes targeted exam s where dose is matched to clinical indication) or iterative reconstruction.
[2024-05-28] MEDS: PANTOPRAZOLE 40 MG/10 ML VIAL INJ IV SCH (21:07)
[2024-05-29] VITALS (8 sets, daily range): BP systolic 91–106; BP diastolic 56–67; PULSE 70–82; RESP 15–20; TEMP 97.9–98.3; O2SAT 96–99
[2024-05-29 06:05] LABS: Basophils # (auto) 0 10 ^3/uL (0-0.2); Basophils % (auto) 0.6 % (0.0-2.0); Eosinophils # (auto) 0.1 10 ^3/uL (0-0.8); Eosinophils % (auto) 1.8 % (0.0-7.0); Hemoglobin 8.5 g/dL (12.2-16.2); Lymphocytes # (auto) 1.9 10 ^3/uL (0.4-5.4); Lymphocytes % (auto) 38.9 % (10.0-50.0); Mean Corpuscular Hemoglobin 28.9 pg (28.0-32.0); Mean Corpuscular Hgb Conc. 33.8 g/dL (32.0-36.0); Mean Corpuscular Volume 85.4 fL (80.0-100.0); Monocytes # (auto) 0.5 10 ^3/uL (0-1.3); Monocytes % (auto) 10.4 % (0.0-12.0); Neutrophils # (auto) 2.3 10 ^3/uL (1.6-8.6); Neutrophils % (auto) 48.3 % (37.0-80.0); Nucleated Red Blood Cells % 0.1 %; Platelet Count (auto) 315 10^3/uL (140-450); Red Blood Cells 2.93 10^6/uL (4.0-5.20); White Blood Cell 4.8 10^3/uL (4.4-10.8)
--- NOTE | 2024-05-29 08:06 | DVHPN2 ---
Reviewed: Care Plan, H&P, Labs, Medications, Previous Orders, Radiology Changes from previous H/P or p: No Changes Objective Vitals Vital Signs Date Time Temp Pulse Resp B/P (MAP) Pulse Ox O2 Delivery O2 Flow Rate FiO2 05/29/24 05:00 97.9 70 19 101/64 (76) 98 97.9 05/28/24 20:00 Room Air* 0 21 Intake/Output Intake and Output 05/29/24 07:00 Intake Total 2330 ml Output Total 1300 ml Balance 1030 ml Intake Oral 980 ml IV Total 1050 ml Blood Product 300 ml Output Urine Total 1300 ml # Voids 2 Medications Current Medications Medications Dose Ordered Sig/Yasmine Route Start Time Stop Time Status Last Admin Dose Admin Acetaminophen/ Hydrocodone Bitart 1 tab Q4HP PRN PO 05/23/24 17:30 05/28/24 21:09 1 TAB Ondansetron HCl 4 mg Q4HP PRN IV 05/23/24 17:30 Acetaminophen 650 mg Q6HP PRN PO 05/23/24 17:30 05/27/24 22:35 650 MG Morphine Sulfate 2 mg Q4HPRN PRN IV 05/23/24 17:30 Diagnostic Test (Pha) 1 strip ACHS 05/23/24 22:00 05/29/24 06:18 1 STRIP Insulin Human Regular HS SC 05/23/24 22:00 05/28/24 21:30 6 UNITS Insulin Human Regular AC SC 05/24/24 07:00 05/29/24 06:27 2 UNITS Dextrose 50 ml UD PRN IV 05/23/24 18:00 Ceftriaxone Sodium 50 ml @ 100 mls/hr DAILY@09 IV 05/24/24 09:00 05/28/24 08:57 100 MLS/HR Sodium Chloride 1,000 ml @ 100 mls/hr Q10H IV 05/24/24 20:45 05/29/24 06:00 100 MLS/HR Pantoprazole Sodium 40 mg BID IV 05/28/24 22:00 05/28/24 21:07 40 MG Laboratory Results Laboratory Tests 05/26/24 08:59 05/29/24 04:50 Urinalysis Test 05/23/24 12:06 Urine Color Yellow (Yellow) Urine Clarity Turbid (Clear) H Urine pH 6.0 (5.0-9.0) Urine Specific [place] 1.016 (1.001-1.035) Urine Protein 1+ (Negative) H Urine Ketones 2+ (Negative) H Urine Blood 3+ /uL (Negative) H Urine Nitrite Negative (Negative) Urine Bilirubin Negative (Negative) Urine Urobilinogen Normal mg/dL (Negative) Urine Leukocyte Esterase 3+ /uL (Negative) Urine RBC 70 /hpf (0 - 4) Urine WBC 132 /hpf (0 - 5) Urine Squamous Epithelial Cells Few /hpf (<5) Urine Bacteria None seen /hpf (None Seen) Urine Hyaline Casts Few /lpf (0 - 2) Urine Mucus Few (None Seen) Urine Glucose Trace mg/dL (Normal) Microbiology Microbiology Date/Time Source Procedure Growth Status 05/23/24 17:57 Blood Blood Culture - Final NO GROWTH AFTER 5 DAYS OF INCUBATION. Complete 05/23/24 12:06 Urine - [place] Urine Culture - Final Complete Labs and/or images reviewed: Labs reviewed by me, Image(s) reviewed by me Assessment/Plan Assessment/Plan Acute left flank pain History of left kidney stone status post percutaneous nephrostomy tube: Status post Left percutaneous nephrolithotripsy by Urology Dr. Jiang on 05/24/2024 Uncontrolled diabetes: Insulin sliding scale Sepsis secondary to urinary tract infection blood cultures negative, urine cultures negative, continue Rocephin Acute urinary tract infection: Rocephin Postop blood loss anemia drop of hemoglobin from 10 to 7.4 , 2 unit RBC transfusion given, hemoglobin improved to 8.5 and stable, patient was reviewed by Urology , [place] removed, left nephrostomy tube in place , to be clamped when urine is clear Nephrostomy tube draining blood mixed with urine, will inform Urology Dr. Jiang Time spent 45 minutes Examined the patient with the help of manager hematology PCP Dr. Luiza Rehman Urology consult by Dr. Shepherd appreciated CT abdomen pelvis without contrast negative for retroperitoneal hematoma Plan discussed with: Patient My Orders Orders - MACKENZIE KEYS MD Procedure Category Date Status Time Pantoprazole PHA 05/28/24 In Process (Protonix) 22:00 Obtain Consent For: ORDERS 05/28/24 Transmitted 13:57 Vital Signs JASON 05/28/24 In Process 13:57 Obtain Consent For JASON 05/28/24 In Process Anesthesia 13:57 Date of Service: May 29, 2024 Billing Provider: MACKENZIE KEYS MD Common Visit Codes: [id number] INP/OBS CARE(HIGH) MACKENZIE KEYS MD May 29, 2024 08:06
--- NOTE | 2024-05-29 14:47 | MEDREC ---
[facility] Intervention Section I [facility] Intervention: Deescalate AB based on CS (7 DAYS ON CEFTRIAXONE NO LEUKOCYTOSIS , AFEBRILE - URINE CULTURE WITH NO GROWTH - PLEASE COONSIDER TO D/C CEFTRIAXONE) LIDA ROCA PHARMACIST May 29, 2024 14:47
[2024-05-30] VITALS (9 sets, daily range): BP systolic 84–109; BP diastolic 48–71; PULSE 74–93; RESP 16–20; TEMP 97.8–100; O2SAT 94–98
[2024-05-30 06:50] LABS: Basophils # (auto) 0 10 ^3/uL (0-0.2); Basophils % (auto) 0.8 % (0.0-2.0); Eosinophils # (auto) 0.1 10 ^3/uL (0-0.8); Eosinophils % (auto) 1.6 % (0.0-7.0); Hematocrit 25.7 % (36.0-46.0); Hemoglobin 8.5 g/dL (12.2-16.2); Lymphocytes # (auto) 1.6 10 ^3/uL (0.4-5.4); Lymphocytes % (auto) 26.3 % (10.0-50.0); Mean Corpuscular Hemoglobin 28.6 pg (28.0-32.0); Mean Corpuscular Hgb Conc. 33.2 g/dL (32.0-36.0); Mean Corpuscular Volume 86.2 fL (80.0-100.0); Monocytes # (auto) 0.5 10 ^3/uL (0-1.3); Neutrophils # (auto) 3.8 10 ^3/uL (1.6-8.6); Neutrophils % (auto) 63.3 % (37.0-80.0); Nucleated Red Blood Cells % 0.1 %; Platelet Count (auto) 328 10^3/uL (140-450); Red Blood Cells 2.98 10^6/uL (4.0-5.20); Red Cell Distribution Width 13.9 % (11.8-14.3)
--- NOTE | 2024-05-30 08:29 | DVHPN2 ---
Progress Note - Dictate Date Seen: May 30, 2024 Has the PT tested + for MRSA If YES, has PT been informed?: No Medical Necessity Reason Pt with a Central, PICC or Fol: No Subjective pain controlled. doing well. H/H stable. CT reviewed. vital signs Vital Sign Date Time Temp Pulse Resp B/P (MAP) Pulse Ox O2 Delivery O2 Flow Rate FiO2 05/30/24 05:00 98.0 74 18 97/59 (72) 98 98.0 05/29/24 20:00 Room Air* 0 21 Total Intake and Output 05/29/24 05/29/24 05/30/24 15:00 23:00 07:00 Intake Total 50 ml 300 ml 600 ml Output Total 450 ml Balance 50 ml 300 ml 150 ml medications Current Medications Medications Dose Ordered Sig/Yasmine Route Start Time Stop Time Status Last Admin Dose Admin Acetaminophen/ Hydrocodone Bitart 1 tab Q4HP PRN PO 05/23/24 17:30 05/30/24 01:54 1 TAB Ondansetron HCl 4 mg Q4HP PRN IV 05/23/24 17:30 Acetaminophen 650 mg Q6HP PRN PO 05/23/24 17:30 05/29/24 16:34 650 MG Morphine Sulfate 2 mg Q4HPRN PRN IV 05/23/24 17:30 Diagnostic Test (Pha) 1 strip ACHS 05/23/24 22:00 05/30/24 06:21 1 STRIP Insulin Human Regular HS SC 05/23/24 22:00 05/29/24 22:14 3 UNITS Insulin Human Regular AC SC 05/24/24 07:00 05/29/24 11:30 2 UNITS Dextrose 50 ml UD PRN IV 05/23/24 18:00 Ceftriaxone Sodium 50 ml @ 100 mls/hr DAILY@09 IV 05/24/24 09:00 05/29/24 09:00 100 MLS/HR Sodium Chloride 1,000 ml @ 100 mls/hr Q10H IV 05/24/24 20:45 05/29/24 20:45 100 MLS/HR Pantoprazole Sodium 40 mg BID IV 05/28/24 22:00 05/29/24 22:02 40 MG objective hematuria noted in left PCN. clots within the drainage bag. leaking about the nephrostomy site. Tender during dressing change. PCN repositioned and irrigated. 250 mls kailee hematuria returned. returned an hour later and catheter was again clogged. Irrigated again. laboratory and microbiology Laboratory Tests 05/30/24 04:51 05/26/24 08:59 Test 05/26/24 08:59 Range/Units Serum Glucose 194 H 74-106 mg/dL Assessment/Plan encourage fluids lay prone as able monitor output will plug PCN when clear. transfuse PRBC for hgb < 7 consult IR for placement of antegrade stent and removal of PCN NPO after midnight Plan discussed with: Patient CC Plasma Assessment Blood Product Administration S: 0230 TIM WHALEN NP May 30, 2024 08:29
--- NOTE | 2024-05-30 09:19 | DVHPN2 ---
Reviewed: Care Plan, H&P, Labs, Medications, Previous Orders, Radiology Changes from previous H/P or p: No Changes Objective Vitals Vital Signs Date Time Temp Pulse Resp B/P (MAP) Pulse Ox O2 Delivery O2 Flow Rate FiO2 05/30/24 08:57 98.3 79 16 105/68 (80) 97 98.3 05/29/24 20:00 Room Air* 0 21 Intake/Output Intake and Output 05/30/24 07:00 Intake Total 950 ml Output Total 450 ml Balance 500 ml Intake Oral 900 ml IV Total 50 ml Other 450 ml # Voids 6 # Bowel Movements 2 Medications Current Medications Medications Dose Ordered Sig/Yasmine Route Start Time Stop Time Status Last Admin Dose Admin Acetaminophen/ Hydrocodone Bitart 1 tab Q4HP PRN PO 05/23/24 17:30 05/30/24 01:54 1 TAB Ondansetron HCl 4 mg Q4HP PRN IV 05/23/24 17:30 Acetaminophen 650 mg Q6HP PRN PO 05/23/24 17:30 05/29/24 16:34 650 MG Morphine Sulfate 2 mg Q4HPRN PRN IV 05/23/24 17:30 Diagnostic Test (Pha) 1 strip ACHS 05/23/24 22:00 05/30/24 06:21 1 STRIP Insulin Human Regular HS SC 05/23/24 22:00 05/29/24 22:14 3 UNITS Insulin Human Regular AC SC 05/24/24 07:00 05/29/24 11:30 2 UNITS Dextrose 50 ml UD PRN IV 05/23/24 18:00 Ceftriaxone Sodium 50 ml @ 100 mls/hr DAILY@09 IV 05/24/24 09:00 05/29/24 09:00 100 MLS/HR Sodium Chloride 1,000 ml @ 100 mls/hr Q10H IV 05/24/24 20:45 05/29/24 20:45 100 MLS/HR Pantoprazole Sodium 40 mg BID IV 05/28/24 22:00 05/29/24 22:02 40 MG Laboratory Results Laboratory Tests 05/26/24 08:59 05/30/24 04:51 Urinalysis Test 05/23/24 12:06 Urine Color Yellow (Yellow) Urine Clarity Turbid (Clear) H Urine pH 6.0 (5.0-9.0) Urine Specific [place] 1.016 (1.001-1.035) Urine Protein 1+ (Negative) H Urine Ketones 2+ (Negative) H Urine Blood 3+ /uL (Negative) H Urine Nitrite Negative (Negative) Urine Bilirubin Negative (Negative) Urine Urobilinogen Normal mg/dL (Negative) Urine Leukocyte Esterase 3+ /uL (Negative) Urine RBC 70 /hpf (0 - 4) Urine WBC 132 /hpf (0 - 5) Urine Squamous Epithelial Cells Few /hpf (<5) Urine Bacteria None seen /hpf (None Seen) Urine Hyaline Casts Few /lpf (0 - 2) Urine Mucus Few (None Seen) Urine Glucose Trace mg/dL (Normal) Microbiology Microbiology Date/Time Source Procedure Growth Status 05/23/24 17:57 Blood Blood Culture - Final NO GROWTH AFTER 5 DAYS OF INCUBATION. Complete 05/23/24 12:06 Urine - [place] Urine Culture - Final Complete Labs and/or images reviewed: Labs reviewed by me, Image(s) reviewed by me Assessment/Plan Assessment/Plan Acute left flank pain History of left kidney stone status post percutaneous nephrostomy tube: Status post Left percutaneous nephrolithotripsy by Urology Dr. Jiang on 05/24/2024 Uncontrolled diabetes: Insulin sliding scale Sepsis secondary to urinary tract infection blood cultures negative, urine cultures negative, continue Rocephin Acute urinary tract infection: Rocephin Postop blood loss anemia drop of hemoglobin from 10 to 7.4 , 2 unit RBC transfusion given, hemoglobin improved to 8.5 and stable, patient was reviewed by Urology , [place] removed, left nephrostomy tube in place , to be clamped when urine is clear Nephrostomy tube draining blood mixed with urine, will inform Urology Dr. Jiang Time spent 45 minutes Examined the patient with the help of lead enterprise architect PCP Dr. Luiza Rehman Urology consult by Dr. Shepherd appreciated CT abdomen pelvis without contrast negative for retroperitoneal hematoma Urology will plug PCN when clear Watch hemoglobin transfuse if it goes below 7.0 Discuss the management with the patient through the help of lead enterprise architect ETTA Rodriguez. Her daughter Dorothea [phone] at the bedside Plan discussed with: Patient Date of Service: May 30, 2024 Billing Provider: MACKENZIE KEYS MD Common Visit Codes: [id number] INP/OBS CARE(HIGH) MACKENZIE KEYS MD May 30, 2024 09:19
[2024-05-30] MEDS: IOHEXOL 300 MG/ML 100ML BOTTLE IJ ONE (14:53)
--- NOTE | 2024-05-30 15:32 | DVH ---
Exam: CT CT AB PELVIS W WO CON-IV ONLY History: hematuria Comparison Study: None available at time of dictation. Technique: Multidetector spiral CT of the abdomen and pelvis was performed from lung bases to pubic s ymphysis. Initial imaging was done without IV contrast, followed by post contrast images of the abdo men and pelvis utilizing . 100 cc Omnipaque 300 Intravenous contrast was administered during this exa mination. portal venous/arterial/multiphase imaging was obtained. Axial, coronal and sagittal multi planar reformats were performed by the technologist on a separate workstation. Radiation Dose : CT Dose: CTDI volume is 15.3 mGy. Dose-length product is 865 mGy*cm Findings: Lung Bases: No acute or significant lung base finding. Heart size is enlarged No pleural or pericard ial effusion. Liver: The liver is normal in size. No focal lesions. Normal hepatic vascular enhancement. Gallbladder and Biliary Tree: Unremarkable Spleen: Unremarkable Pancreas: The pancreas is normal in appearance without focal lesions or abnormal enhancement. Adrenal Glands: Unremarkable Kidneys: The left kidney is markedly enlarged by a subcapsular hematoma containing droplets of air. T he left renal pelvis is distended as is the left proximal ureter. A left-sided nephrostomy tube is pr esent. Left ureter is dilated down to the ureterovesical junction The right kidney is unremarkable. The bladder contains droplets of air. Bowel: The stomach is grossly normal in appearance. Small bowel and colon are normal in caliber and d istribution. The appendix is not visualized; however, no secondary findings of acute appendicitis id entified. Ascites: Absent Lymphadenopathy: No mesenteric, retroperitoneal or periportal lymphadenopathy. Abdominal Wall and Mesentery: Unremarkable. Vasculature: The visualized abdominal aorta is normal in size and caliber. Abdominal and pelvic vess els demonstrate normal enhancement. Pelvic Organs: Unremarkable Musculoskeletal: No aggressive focal bony lesions, acute fractures or dislocation. IMPRESSION: 1. Compared to previous exam there is again noted to be a large subcortical hematoma in the left kidn ey. This is similar in size. The left ureter is dilated down to the ureterovesical junction presumably due to the presence of yue t. There is a left-sided nephrostomy tube present Radiation optimization: All CT scans at this facility use at least one of these dose optimization gato hniques: automated exposure control mA and/or kV adjustment per patient size (includes targeted exam s where dose is matched to clinical indication) or iterative reconstruction.
--- NOTE | 2024-05-30 16:26 | DVHPN2 ---
Progress Note - Dictate Date Seen: May 30, 2024 Has the PT tested + for MRSA If YES, has PT been informed?: No Medical Necessity Reason Pt with a Central, PICC or Fol: No Subjective c/o left flank pain. vital signs Vital Sign Date Time Temp Pulse Resp B/P (MAP) Pulse Ox O2 Delivery O2 Flow Rate FiO2 05/30/24 13:00 98.3 86 17 103/68 (80) 98 98.3 05/30/24 08:00 Room Air* 0 21 Total Intake and Output 05/29/24 05/29/24 05/30/24 15:00 23:00 07:00 Intake Total 50 ml 300 ml 600 ml Output Total 450 ml Balance 50 ml 300 ml 150 ml medications Current Medications Medications Dose Ordered Sig/Yasmine Route Start Time Stop Time Status Last Admin Dose Admin Acetaminophen/ Hydrocodone Bitart 1 tab Q4HP PRN PO 05/23/24 17:30 05/30/24 14:26 1 TAB Ondansetron HCl 4 mg Q4HP PRN IV 05/23/24 17:30 Acetaminophen 650 mg Q6HP PRN PO 05/23/24 17:30 05/29/24 16:34 650 MG Morphine Sulfate 2 mg Q4HPRN PRN IV 05/23/24 17:30 Diagnostic Test (Pha) 1 strip ACHS 05/23/24 22:00 05/30/24 11:43 1 STRIP Insulin Human Regular HS SC 05/23/24 22:00 05/29/24 22:14 3 UNITS Insulin Human Regular AC SC 05/24/24 07:00 05/30/24 11:57 2 UNITS Dextrose 50 ml UD PRN IV 05/23/24 18:00 Ceftriaxone Sodium 50 ml @ 100 mls/hr DAILY@09 IV 05/24/24 09:00 05/30/24 09:32 100 MLS/HR Sodium Chloride 1,000 ml @ 100 mls/hr Q10H IV 05/24/24 20:45 05/30/24 09:32 100 MLS/HR Pantoprazole Sodium 40 mg BID IV 05/28/24 22:00 05/30/24 09:32 40 MG objective left PCN not draining. CT UROGRAM done. results noted. PCN removed. pressure dressing applied. pt has relief of pain laboratory and microbiology Laboratory Tests 05/30/24 04:51 05/26/24 08:59 Test 05/26/24 08:59 Range/Units Serum Glucose 194 H 74-106 mg/dL Assessment/Plan encourage fluids lay prone as able transfuse PRBC for hgb < 7 monitor for bleeding, possible angiogram tomorrow possible retrograde stent placement, discussed with Dr. Greer urology who is covering NPO after midnight Problems(with codes): (1) Perinephric hematoma (2) Anemia (3) Flank pain Plan discussed with: Patient, Daughter, Other Total Time (mins): 25 CC Plasma Assessment Blood Product Administration S: 0230 TIM WHALEN NP May 30, 2024 16:26
[2024-05-30 23:35] LABS: Basophils # (auto) 0.1 10 ^3/uL (0-0.2); Basophils % (auto) 0.7 % (0.0-2.0); Eosinophils # (auto) 0 10 ^3/uL (0-0.8); Eosinophils % (auto) 0.1 % (0.0-7.0); Hematocrit 25.5 % (36.0-46.0); Hemoglobin 8.6 g/dL (12.2-16.2); Lymphocytes # (auto) 1.1 10 ^3/uL (0.4-5.4); Lymphocytes % (auto) 10.9 % (10.0-50.0); Mean Corpuscular Hemoglobin 29.6 pg (28.0-32.0); Mean Corpuscular Hgb Conc. 33.8 g/dL (32.0-36.0); Mean Corpuscular Volume 87.4 fL (80.0-100.0); Monocytes # (auto) 0.6 10 ^3/uL (0-1.3); Monocytes % (auto) 5.7 % (0.0-12.0); Neutrophils # (auto) 8.3 10 ^3/uL (1.6-8.6); Neutrophils % (auto) 82.6 % (37.0-80.0); Nucleated Red Blood Cells % 0.1 %; Platelet Count (auto) 311 10^3/uL (140-450); Red Blood Cells 2.92 10^6/uL (4.0-5.20); Red Cell Distribution Width 14.5 % (11.8-14.3)
[2024-05-31] VITALS (15 sets, daily range): BP systolic 87–104; BP diastolic 45–58; PULSE 71–90; RESP 14–20; TEMP 98.1–98.6; O2SAT 96–99
[2024-05-31] MEDS: ONDANSETRON HCL 4 MG/2 ML VIAL IV PRN (01:55)
[2024-05-31] MEDS: SODIUM CHLORIDE 0.9% 250 ML IV ONE (06:45)
[2024-05-31 06:52] LABS: Basophils # (auto) 0 10 ^3/uL (0-0.2); Eosinophils # (auto) 0 10 ^3/uL (0-0.8); Lymphocytes # (auto) 1.8 10 ^3/uL (0.4-5.4); Monocytes # (auto) 0.8 10 ^3/uL (0-1.3); Red Cell Distribution Width 14.2 % (11.8-14.3)
[2024-05-31 06:56] LABS: Basophils % (auto) 0.4 % (0.0-2.0); Eosinophils % (auto) 0.5 % (0.0-7.0); Hematocrit 23.5 % (36.0-46.0); Lymphocytes % (auto) 21.9 % (10.0-50.0); Mean Corpuscular Hemoglobin 29.4 pg (28.0-32.0); Mean Corpuscular Hgb Conc. 33.8 g/dL (32.0-36.0); Mean Corpuscular Volume 86.9 fL (80.0-100.0); Monocytes % (auto) 9.3 % (0.0-12.0); Neutrophils # (auto) 5.5 10 ^3/uL (1.6-8.6); Neutrophils % (auto) 67.9 % (37.0-80.0); Platelet Count (auto) 295 10^3/uL (140-450); Red Blood Cells 2.71 10^6/uL (4.0-5.20); White Blood Cell 8.1 10^3/uL (4.4-10.8)
[2024-05-31 07:05] LABS: INR 1.02 (0.9-1.15); Prothrombin Time 10.8 sec (9.3-11.8)
[2024-05-31 07:08] LABS: Anion Gap 5 (5-15); Carbon Dioxide 28 mmol/L (20-31); Chloride 104 mmol/L (98-107); Potassium 4.1 mmol/L (3.5-5.1); Sodium 137 mmol/L (136-145)
[2024-05-31 07:09] LABS: Calcium 8.7 mg/dL (8.7-10.4)
[2024-05-31 07:14] LABS: BUN/Creatinine Ratio 8.8 (10.0-20.0); Blood Urea Nitrogen 6 mg/dL (9-23); Glucose 104 mg/dL (74-106)
--- NOTE | 2024-05-31 08:40 | DVHPN2 ---
Reviewed: Care Plan, H&P, Labs, Medications, Previous Orders, Radiology Changes from previous H/P or p: No Changes Objective Vitals Vital Signs Date Time Temp Pulse Resp B/P (MAP) Pulse Ox O2 Delivery O2 Flow Rate FiO2 05/31/24 08:07 78 98/54 (69) 97 05/31/24 05:00 98.2 18 98.2 05/30/24 20:00 Room Air* 0 21 Intake/Output Intake and Output 05/31/24 07:00 Intake Total 2050 ml Balance 2050 ml Intake Oral 1000 ml IV Total 750 ml Blood Product 300 ml # Voids 11 # Bowel Movements 1 Medications Current Medications Medications Dose Ordered Sig/Yasmine Route Start Time Stop Time Status Last Admin Dose Admin Acetaminophen/ Hydrocodone Bitart 1 tab Q4HP PRN PO 05/23/24 17:30 05/30/24 20:40 1 TAB Ondansetron HCl 4 mg Q4HP PRN IV 05/23/24 17:30 05/31/24 01:55 4 MG Acetaminophen 650 mg Q6HP PRN PO 05/23/24 17:30 05/31/24 01:56 650 MG Morphine Sulfate 2 mg Q4HPRN PRN IV 05/23/24 17:30 Diagnostic Test (Pha) 1 strip ACHS 05/23/24 22:00 05/31/24 06:42 1 STRIP Insulin Human Regular HS SC 05/23/24 22:00 05/30/24 21:45 3 UNITS Insulin Human Regular AC SC 05/24/24 07:00 05/30/24 18:13 3 UNITS Dextrose 50 ml UD PRN IV 05/23/24 18:00 Ceftriaxone Sodium 50 ml @ 100 mls/hr DAILY@09 IV 05/24/24 09:00 05/30/24 09:32 100 MLS/HR Sodium Chloride 1,000 ml @ 100 mls/hr Q10H IV 05/24/24 20:45 05/31/24 02:50 100 MLS/HR Pantoprazole Sodium 40 mg BID IV 05/28/24 22:00 05/30/24 21:36 40 MG Laboratory Results Laboratory Tests 05/31/24 05:08 Chemistry Test 05/31/24 05:08 Calcium Level 8.7 mg/dL (8.7-10.4) Coagulation Test 05/31/24 05:08 Prothrombin Time 10.8 sec (9.3-11.8) Prothrombin Time INR 1.02 (0.9-1.15) Activated Partial Thromboplast Time 25.0 SEC (24.5-34.5) Urinalysis Test 05/23/24 12:06 Urine Color Yellow (Yellow) Urine Clarity Turbid (Clear) H Urine pH 6.0 (5.0-9.0) Urine Specific [place] 1.016 (1.001-1.035) Urine Protein 1+ (Negative) H Urine Ketones 2+ (Negative) H Urine Blood 3+ /uL (Negative) H Urine Nitrite Negative (Negative) Urine Bilirubin Negative (Negative) Urine Urobilinogen Normal mg/dL (Negative) Urine Leukocyte Esterase 3+ /uL (Negative) Urine RBC 70 /hpf (0 - 4) Urine WBC 132 /hpf (0 - 5) Urine Squamous Epithelial Cells Few /hpf (<5) Urine Bacteria None seen /hpf (None Seen) Urine Hyaline Casts Few /lpf (0 - 2) Urine Mucus Few (None Seen) Urine Glucose Trace mg/dL (Normal) Microbiology Microbiology Date/Time Source Procedure Growth Status 05/23/24 17:57 Blood Blood Culture - Final NO GROWTH AFTER 5 DAYS OF INCUBATION. Complete 05/23/24 12:06 Urine - [place] Urine Culture - Final Complete Labs and/or images reviewed: Labs reviewed by me, Image(s) reviewed by me Assessment/Plan Assessment/Plan Acute left flank pain History of left kidney stone status post percutaneous nephrostomy tube: Status post Left percutaneous nephrolithotripsy by Urology Dr. Jiang on 05/24/2024 Uncontrolled diabetes: Insulin sliding scale Sepsis secondary to urinary tract infection blood cultures negative, urine cultures negative, continue Rocephin Acute urinary tract infection: Rocephin Postop blood loss anemia drop of hemoglobin from 10 to 7.4 , 3 unit RBC transfusion given, hemoglobin improved to 8.5 and stable, patient was reviewed by Urology , [place] removed, left nephrostomy tube in place , to be clamped when urine is clear Nephrostomy tube draining blood mixed with urine, will inform Urology Dr. Jiang Time spent 45 minutes Examined the patient with the help of taper machine PCP Dr. Luiza Rehman Urology consult by Dr. Shepherd appreciated CT abdomen pelvis without contrast negative for retroperitoneal hematoma Urology will plug PCN when clear Watch hemoglobin transfuse if it goes below 7.0 Discuss the management with the patient through the help of taper machine Her daughter Dorothea [phone] at the bedside LEFT ANTEGRADE STENT PLACEMENT AND REMOVAL OF NEPHROSTOMY TUBE BY RADIOLOGIST SCHEDULED FOR TODAY Plan discussed with: Patient Date of Service: May 31, 2024 Billing Provider: MACKENZIE KEYS MD Common Visit Codes: [id number] INP/OBS CARE(HIGH) MACKENZIE KEYS MD May 31, 2024 08:40
--- NOTE | 2024-05-31 11:49 | DVHPN2 ---
Progress Note - Dictate Date Seen: May 31, 2024 Has the PT tested + for MRSA If YES, has PT been informed?: No Medical Necessity Reason Pt with a Central, PICC or Fol: No vital signs Vital Sign Date Time Temp Pulse Resp B/P (MAP) Pulse Ox O2 Delivery O2 Flow Rate FiO2 05/31/24 09:00 98.2 74 16 87/47 (60) 96 98.2 05/30/24 20:00 Room Air* 0 21 Total Intake and Output 05/30/24 05/30/24 05/31/24 15:00 23:00 07:00 Intake Total 1550 ml 500 ml Balance 1550 ml 500 ml medications Current Medications Medications Dose Ordered Sig/Yasmine Route Start Time Stop Time Status Last Admin Dose Admin Acetaminophen/ Hydrocodone Bitart 1 tab Q4HP PRN PO 05/23/24 17:30 05/30/24 20:40 1 TAB Ondansetron HCl 4 mg Q4HP PRN IV 05/23/24 17:30 05/31/24 01:55 4 MG Acetaminophen 650 mg Q6HP PRN PO 05/23/24 17:30 05/31/24 01:56 650 MG Morphine Sulfate 2 mg Q4HPRN PRN IV 05/23/24 17:30 Diagnostic Test (Pha) 1 strip ACHS 05/23/24 22:00 05/31/24 06:42 1 STRIP Insulin Human Regular HS SC 05/23/24 22:00 05/30/24 21:45 3 UNITS Insulin Human Regular AC SC 05/24/24 07:00 05/30/24 18:13 3 UNITS Dextrose 50 ml UD PRN IV 05/23/24 18:00 Ceftriaxone Sodium 50 ml @ 100 mls/hr DAILY@09 IV 05/24/24 09:00 05/30/24 09:32 100 MLS/HR Sodium Chloride 1,000 ml @ 100 mls/hr Q10H IV 05/24/24 20:45 05/31/24 09:33 100 MLS/HR Pantoprazole Sodium 40 mg BID IV 05/28/24 22:00 05/30/24 21:36 40 MG objective left PCN not draining. CT UROGRAM done. results noted. PCN removed. pressure dressing applied. pt has relief of pain laboratory and microbiology Laboratory Tests 05/31/24 05:08 Test 05/31/24 05:08 Range/Units Serum Glucose 104 74-106 mg/dL Assessment/Plan pt off unit for angiogram POC d/w son and daughter at the bedside labs reviewed Plan discussed with: Daughter, Son CC Plasma Assessment Blood Product Administration S: 0230 TIM WHALEN NP May 31, 2024 11:49
[2024-05-31] MEDS: IODIXANOL 320MG/ML 100ML BTL IV ONE (11:50)
[2024-05-31] MEDS: fentaNYL CITRATE 100 MCG/2 ML VL ONE (11:58)
[2024-05-31] MEDS: LIDOCAINE 2%HCL (LOCAL ANESTH.) INJ 20ML MDV ONE (11:59)
[2024-05-31] MEDS: MIDAZOLAM HCL 2MG/2ML 2ml VIAL (1mg/ml) ONE (11:59)
--- NOTE | 2024-05-31 13:46 | DVH ---
XY WARREN, HISTORY: Hematuria, left subcapsular hematoma, decrease in hemoglobin concern for bleeding seen on CT . PROCEDURE: Following informed consent, the patient was positioned supine on the fluoroscopic table. T he right groin was prepped with chlorhexidine which was allowed to dry and then draped sterilely. Sameer e out was performed. IV sedation and 1% local lidocaine were administered. With real-time ultrasound guidance, the right common femoral artery was accessed using a micropuncture set, an image documentin g patency recorded to PACS, and a 5 Fr vascular sheath positioned in the iliac artery. Angiogram was performed of the iliac artery. The left renal artery was then accessed using a Sos catheter. Left re nal angiogram was performed in 2 projection. The catheters and sheaths were then removed. The arterio mandie was closed using an Angioseal device. No immediate complication was identified. DAP 3.96 Dose 16 mGy FLUOROSCOPY TIME: 2.3 minutes. CONTRAST USED: 20 mL. SEDATION: Dr. Doris Rodrigues was personally responsible for the administration of moderate sedation during the procedure performed, including the use of an independent trained observer who had no other duties during the procedure. The drugs utilized were IV fentanyl and versed (see nursing log for details). The total time of supervision by the attending physician was approximately 45 minutes. FINDINGS: Left renal angiogram shows a normal appearing left renal artery. No contrast extravasation or pseudoaneurysm is visualized. Normal contrast staining of the left kidney on delayed image acquisi tion. IMPRESSION: No contrast extravasation or pseudoaneurysm is visualized on the left renal angiogram to suggest for arterial injury. No embolization was performed. Plan: Right leg straight for 2 hours.
[2024-05-31 21:05] LABS: Hemoglobin 7.3 g/dL (12.2-16.2)
[2024-05-31 21:07] LABS: Hematocrit 21.9 % (36.0-46.0)
[2024-06-01] VITALS (10 sets, daily range): BP systolic 83–120; BP diastolic 42–60; PULSE 68–80; RESP 16–18; TEMP 97.7–98.7; O2SAT 97–99
[2024-06-01] MEDS ORDERED: HYDROcodone-ACET 7.5/325MG TAB PO PRN (02:30)
[2024-06-01] MEDS: SODIUM CHLORIDE 0.9% 500 ML IV ONE (03:33)
[2024-06-01 10:24] LABS: Basophils # (auto) 0 10 ^3/uL (0-0.2); Basophils % (auto) 0.5 % (0.0-2.0); Eosinophils # (auto) 0.1 10 ^3/uL (0-0.8); Eosinophils % (auto) 2.4 % (0.0-7.0); Hematocrit 27.2 % (36.0-46.0); Hemoglobin 8.9 g/dL (12.2-16.2); Lymphocytes # (auto) 2.3 10 ^3/uL (0.4-5.4); Lymphocytes % (auto) 45.2 % (10.0-50.0); Mean Corpuscular Hemoglobin 28.7 pg (28.0-32.0); Mean Corpuscular Hgb Conc. 32.6 g/dL (32.0-36.0); Mean Corpuscular Volume 88.2 fL (80.0-100.0); Monocytes # (auto) 0.3 10 ^3/uL (0-1.3); Monocytes % (auto) 6.7 % (0.0-12.0); Neutrophils # (auto) 2.3 10 ^3/uL (1.6-8.6); Neutrophils % (auto) 45.2 % (37.0-80.0); Nucleated Red Blood Cells % 0.1 %; Platelet Count (auto) 267 10^3/uL (140-450); Red Blood Cells 3.08 10^6/uL (4.0-5.20); Red Cell Distribution Width 14.2 % (11.8-14.3); White Blood Cell 5.1 10^3/uL (4.4-10.8)
--- NOTE | 2024-06-01 11:09 | DVHPN2 ---
Progress Note - Dictate Date Seen: Jun 01, 2024 Has the PT tested + for MRSA If YES, has PT been informed?: No Medical Necessity Reason Pt with a Central, PICC or Fol: No vital signs Vital Sign Date Time Temp Pulse Resp B/P (MAP) Pulse Ox O2 Delivery O2 Flow Rate FiO2 06/01/24 08:46 97.7 72 16 91/55 (67) 99 97.7 06/01/24 07:30 Room Air* 0 21 Total Intake and Output 05/31/24 05/31/24 06/01/24 15:00 23:00 07:00 Intake Total 1250 ml 770 ml 1950 ml Balance 1250 ml 770 ml 1950 ml medications Current Medications Medications Dose Ordered Sig/Yasmine Route Start Time Stop Time Status Last Admin Dose Admin Ondansetron HCl 4 mg Q4HP PRN IV 05/23/24 17:30 05/31/24 01:55 4 MG Acetaminophen 650 mg Q6HP PRN PO 05/23/24 17:30 05/31/24 01:56 650 MG Morphine Sulfate 2 mg Q4HPRN PRN IV 05/23/24 17:30 Diagnostic Test (Pha) 1 strip ACHS 05/23/24 22:00 06/01/24 06:12 1 STRIP Insulin Human Regular HS SC 05/23/24 22:00 05/31/24 22:26 2 UNITS Insulin Human Regular AC SC 05/24/24 07:00 06/01/24 06:16 2 UNITS Dextrose 50 ml UD PRN IV 05/23/24 18:00 Ceftriaxone Sodium 50 ml @ 100 mls/hr DAILY@09 IV 05/24/24 09:00 06/01/24 09:29 100 MLS/HR Sodium Chloride 1,000 ml @ 100 mls/hr Q10H IV 05/24/24 20:45 06/01/24 06:12 100 MLS/HR Pantoprazole Sodium 40 mg BID IV 05/28/24 22:00 06/01/24 09:23 40 MG Acetaminophen/ Hydrocodone Bitart 1 tab Q6HP PRN PO 06/01/24 02:30 objective left PCN not draining. CT UROGRAM done. results noted. PCN removed. pressure dressing applied. pt has relief of pain laboratory and microbiology Laboratory Tests 06/01/24 09:43 12/31/24 05:08 Test 05/31/24 05:08 Range/Units Serum Glucose 104 74-106 mg/dL Assessment/Plan supportive care strict bedrest pressure dressing to left flank daily h&h transfuse for hgb < 7 angiogram showed no signs of arterial bleed. Dietary Evaluation Review Comments: Encourage PO feedings after NPO for procedures, Offer nutrition supplements if appetite is not improving. Expected Outcomes/Goals: Improved nutrition status. Plan discussed with: Patient, Spouse, Daughter, Son, Other Total Time (mins): 30 CC Plasma Assessment Blood Product Administration S: 0230 TIM WHALEN NP Jun 01, 2024 11:09
--- NOTE | 2024-06-01 14:37 | DVHPN2 ---
Subjective Patient denies any symptoms at this time Reviewed: Care Plan, H&P, Labs, Medications, Previous Orders, Radiology Changes from previous H/P or p: No Changes General: Per HPI Objective Vitals Vital Signs Date Time Temp Pulse Resp B/P (MAP) Pulse Ox O2 Delivery O2 Flow Rate FiO2 06/01/24 13:00 97.8 80 18 94/58 (70) 98 97.8 06/01/24 07:30 Room Air* 0 21 Intake/Output Intake and Output 06/01/24 07:00 Intake Total 3970 ml Balance 3970 ml Intake Oral 720 ml IV Total 2800 ml Blood Product 300 ml Other 150 ml # Voids 1 General Appearance: Alert, Oriented X3, Cooperative, No acute distress HEENT: Atraumatic, PERRLA Lungs: Clear to auscultation, Normal air movement Cardiovascular: Normal S1, Normal S2 Genitourinary: No Apparent Abnormalities, Other (Dressing dry and intact to left flank) Musculoskeletal: Normal sensory function, Normal motor function Psych/Mental Status: Mental status NL, Mood NL Medications Current Medications Medications Dose Ordered Sig/Yasmine Route Start Time Stop Time Status Last Admin Dose Admin Ondansetron HCl 4 mg Q4HP PRN IV 05/23/24 17:30 05/31/24 01:55 4 MG Acetaminophen 650 mg Q6HP PRN PO 05/23/24 17:30 05/31/24 01:56 650 MG Morphine Sulfate 2 mg Q4HPRN PRN IV 05/23/24 17:30 Diagnostic Test (Pha) 1 strip ACHS 05/23/24 22:00 06/01/24 12:12 1 STRIP Insulin Human Regular HS SC 05/23/24 22:00 05/31/24 22:26 2 UNITS Insulin Human Regular AC SC 05/24/24 07:00 06/01/24 12:13 3 UNITS Dextrose 50 ml UD PRN IV 05/23/24 18:00 Ceftriaxone Sodium 50 ml @ 100 mls/hr DAILY@09 IV 05/24/24 09:00 06/01/24 09:29 100 MLS/HR Sodium Chloride 1,000 ml @ 100 mls/hr Q10H IV 05/24/24 20:45 06/01/24 06:12 100 MLS/HR Pantoprazole Sodium 40 mg BID IV 05/28/24 22:00 06/01/24 09:23 40 MG Acetaminophen/ Hydrocodone Bitart 1 tab Q6HP PRN PO 06/01/24 02:30 Laboratory Results Laboratory Tests 05/31/24 05:08 06/01/24 09:43 Urinalysis Test 05/23/24 12:06 Urine Color Yellow (Yellow) Urine Clarity Turbid (Clear) H Urine pH 6.0 (5.0-9.0) Urine Specific [place] 1.016 (1.001-1.035) Urine Protein 1+ (Negative) H Urine Ketones 2+ (Negative) H Urine Blood 3+ /uL (Negative) H Urine Nitrite Negative (Negative) Urine Bilirubin Negative (Negative) Urine Urobilinogen Normal mg/dL (Negative) Urine Leukocyte Esterase 3+ /uL (Negative) Urine RBC 70 /hpf (0 - 4) Urine WBC 132 /hpf (0 - 5) Urine Squamous Epithelial Cells Few /hpf (<5) Urine Bacteria None seen /hpf (None Seen) Urine Hyaline Casts Few /lpf (0 - 2) Urine Mucus Few (None Seen) Urine Glucose Trace mg/dL (Normal) Microbiology Microbiology Date/Time Source Procedure Growth Status 05/23/24 17:57 Blood Blood Culture - Final NO GROWTH AFTER 5 DAYS OF INCUBATION. Complete 05/23/24 12:06 Urine - [place] Urine Culture - Final Complete Labs and/or images reviewed: Labs reviewed by me, Image(s) reviewed by me Assessment/Plan Assessment/Plan Impression: -complicated cystitis -obstructive uropathy -nephrolithiasis -anemia with postop bleeding Plan: -patient was status post removal of percutaneous nephrostomy tube, lithotripsy, as well as renal angiogram to rule out postoperative aneurysm versus bleeding. -patient was had a total of 4 units PRBCs. H&H is currently holding. Monitor for further bleeding -patient does report having some hematuria this a.m.. We will continue to monitor -neurology consultation -antibiotic therapy -reassess in a.m. possible discharge if patient was asymptomatic, blood pressure improves, as well as the patient having no further drop in H&H Total time spent with patient discussing and formulating plan of care: 35 minutes. This medical document was created using an electronic medical record system with [employer] dictation system. Although this document has been carefully reviewed, there may still be some phonetic and typographical errors. These areas are purely typographical due to imperfections of the software programs, and do not reflect any compromise in the patient's medical care. Plan discussed with: Patient, Other (RN) My Orders Orders - HERNAN LEWIS NP Procedure Category Date Status Time Hemoglobin & LAB 06/02/24 Verified Hematocrit 04:00 Date of Service: Jun 01, 2024 Billing Provider: HERNAN LEWIS NP Common Visit Codes: [id number] INP/OBS CARE(HIGH) HERNAN LEWIS NP Jun 01, 2024 14:37
[2024-06-02] VITALS (7 sets, daily range): BP systolic 100–112; BP diastolic 55–72; PULSE 64–77; RESP 16–18; TEMP 97.5–98.7; O2SAT 95–98
[2024-06-02 06:24] LABS: Hematocrit 25.9 % (36.0-46.0); Hemoglobin 8.4 g/dL (12.2-16.2)
--- NOTE | 2024-06-02 11:01 | DVHPN2 ---
Progress Note - Dictate Date Seen: Jun 02, 2024 Has the PT tested + for MRSA If YES, has PT been informed?: No Medical Necessity Reason Pt with a Central, PICC or Fol: No Medical Necessity Reason Status post left PCNL on 05/24/2024. Postoperatively she required hospitalization to manage the hematuria with transfusion and medical management. Subjective No pain reported. Nephrostomy tube site dressing applied, intact vital signs Vital Sign Date Time Temp Pulse Resp B/P (MAP) Pulse Ox O2 Delivery O2 Flow Rate FiO2 06/02/24 09:00 98.7 65 16 106/67 (80) 96 98.7 06/02/24 08:00 Room Air* 0 21 Total Intake and Output 06/01/24 06/01/24 06/02/24 15:00 23:00 07:00 Intake Total 250 ml 1550 ml 1560 ml Output Total 1 ml Balance 250 ml 1549 ml 1560 ml medications Current Medications Medications Dose Ordered Sig/Yasmine Route Start Time Stop Time Status Last Admin Dose Admin Ondansetron HCl 4 mg Q4HP PRN IV 05/23/24 17:30 05/31/24 01:55 4 MG Acetaminophen 650 mg Q6HP PRN PO 05/23/24 17:30 05/31/24 01:56 650 MG Diagnostic Test (Pha) 1 strip ACHS 05/23/24 22:00 06/02/24 06:23 1 STRIP Insulin Human Regular HS SC 05/23/24 22:00 06/01/24 21:30 3 UNITS Insulin Human Regular AC SC 05/24/24 07:00 06/02/24 06:25 2 UNITS Dextrose 50 ml UD PRN IV 05/23/24 18:00 Ceftriaxone Sodium 50 ml @ 100 mls/hr DAILY@09 IV 05/24/24 09:00 06/02/24 10:10 100 MLS/HR Sodium Chloride 1,000 ml @ 100 mls/hr Q10H IV 05/24/24 20:45 06/02/24 04:37 100 MLS/HR Pantoprazole Sodium 40 mg BID IV 05/28/24 22:00 06/02/24 10:10 40 MG Acetaminophen/ Hydrocodone Bitart 1 tab Q6HP PRN PO 06/01/24 02:30 objective H and H stable Pain-free laboratory and microbiology Laboratory Tests 06/02/24 05:42 06/01/24 09:43 05/31/24 05:08 Test 05/31/24 05:08 Range/Units Serum Glucose 104 74-106 mg/dL Problem List Patient stable for discharge from urological standpoint at this time Assessment/Plan Follow up in two weeks with [facility] Dietary Evaluation Review Comments: Encourage PO feedings after NPO for procedures, Offer nutrition supplements if appetite is not improving. Expected Outcomes/Goals: Improved nutrition status. Plan discussed with: Patient, Son CC Plasma Assessment Blood Product Administration S: [id number] AUGUSTA SMALL MD Jun 02, 2024 11:01
[2024-06-02] MEDS ORDERED: CEFD300C2 PO (13:56)
--- NOTE | 2024-06-02 16:10 | DVHDS2 ---
Discharge Summary Date of Admission May 23, 2024 at 17:29 Date of Discharge: Jun 02, 2024 Admitting Diagnosis Complicated cystitis Labs/Diagnostic Data: Laboratory Results Test 06/02/24 06:12 06/02/24 05:42 06/01/24 09:43 05/31/24 05:08 POC Glucose 133 mg/dl (70-106) Hemoglobin 8.4 g/dL (12.2-16.2) Hematocrit 25.9 % (36.0-46.0) White Blood Count 5.1 10^3/uL (4.4-10.8) Red Blood Count 3.08 10^6/uL (4.0-5.20) Mean Corpuscular Volume 88.2 fL (80.0-100.0) Mean Corpuscular Hemoglobin 28.7 pg (28.0-32.0) Mean Corpuscular Hemoglobin Concent 32.6 g/dL (32.0-36.0) Red Cell Distribution Width 14.2 % (11.8-14.3) Platelet Count 267 10^3/uL (140-450) Mean Platelet Volume 8.6 fL (6.9-10.8) Neutrophils (%) (Auto) 45.2 % (37.0-80.0) Lymphocytes (%) (Auto) 45.2 % (10.0-50.0) Monocytes (%) (Auto) 6.7 % (0.0-12.0) Eosinophils (%) (Auto) 2.4 % (0.0-7.0) Basophils (%) (Auto) 0.5 % (0.0-2.0) Neutrophils # (Auto) 2.3 10 ^3/uL (1.6-8.6) Lymphocytes # (Auto) 2.3 10 ^3/uL (0.4-5.4) Monocytes # (Auto) 0.3 10 ^3/uL (0-1.3) Eosinophils # (Auto) 0.1 10 ^3/uL (0-0.8) Basophils # (Auto) 0 10 ^3/uL (0-0.2) Nucleated Red Blood Cells 0.1 % Prothrombin Time 10.8 sec (9.3-11.8) Prothrombin Time INR 1.02 (0.9-1.15) Activated Partial Thromboplast Time 25.0 SEC (24.5-34.5) Sodium Level 137 mmol/L (136-145) Potassium Level 4.1 mmol/L (3.5-5.1) Chloride Level 104 mmol/L (98-107) Carbon Dioxide Level 28 mmol/L (20-31) Anion Gap 5 (5-15) Blood Urea Nitrogen 6 mg/dL (9-23) Creatinine 0.68 mg/dL (0.550-1.02) Glomerular Filtration Rate Calc 109 mL/min (>90) BUN/Creatinine Ratio 8.8 (10.0-20.0) Serum Glucose 104 mg/dL (74-106) Calcium Level 8.7 mg/dL (8.7-10.4) Test 05/26/24 08:59 05/26/24 08:53 05/24/24 07:19 05/23/24 17:57 Total Bilirubin 0.5 mg/dL (0.2-1.0) Aspartate Amino Transferase (AST) 23 U/L (13-40) Alanine Aminotransferase (ALT) 13 U/L (7-40) Alkaline Phosphatase 48 U/L (46-116) Total Protein 5.8 g/dL (5.7-8.2) Albumin 2.7 g/dL (3.2-4.8) Beta HCG, Quantitative 1.2 mIU/mL (1.5-4.2) Lactic Acid Level 0.8 mmol/L (0.4-2.0) Test 05/23/24 12:06 Urine Color Yellow (Yellow) Urine Clarity Turbid (Clear) Urine pH 6.0 (5.0-9.0) Urine Specific [place] 1.016 (1.001-1.035) Urine Protein 1+ (Negative) Urine Ketones 2+ (Negative) Urine Blood 3+ /uL (Negative) Urine Nitrite Negative (Negative) Urine Bilirubin Negative (Negative) Urine Urobilinogen Normal mg/dL (Negative) Urine Leukocyte Esterase 3+ /uL (Negative) Urine RBC 70 /hpf (0 - 4) Urine WBC 132 /hpf (0 - 5) Urine Squamous Epithelial Cells Few /hpf (<5) Urine Bacteria None seen /hpf (None Seen) Urine Hyaline Casts Few /lpf (0 - 2) Urine Mucus Few (None Seen) Urine Glucose Trace mg/dL (Normal) Other Laboratory Tests 06/02/24 05:42 06/01/24 09:43 05/31/24 05:08 Brief Hx & Hospital Course: History of Present Illness 44 y/o F, with a Hx of DM, nephrolithiasis s/p nephrostomy tube and bag placement, presents with c/o left flank pain. On a.m. prior to ER visit patient developed worsening non-radiating, left-sided flank pain. Patient pain started last night, unprovoked and emanating from her nephrostomy tube site but the pain was tolerable. On a.m. of admit day patient woke up and had worsening of the pain which is described as constant and ranks it a /10. She informs on tube's placement on 05/18/24 by direction of Vic Jiang for "kidney stones.", placed by IR. Patient will discharge with antibiotics, and has been compliant. She denies having any hematuria, nausea, vomiting, fever, chills. Patient is unable to pee from urethra. But she does have adequate amount of urine in left nephrostomy bag. Course of hospitalization: Patient was recently discharged with complicated cystitis secondary to obstructive uropathy. Patient had nephrostomy tube placed, with plans to return to the hospital for lithotripsy. Patient underwent lithotripsy, removal of left percutaneous nephrostomy tube. Postoperatively the patient became anemic. Patient had hematuria. Interventional radiology consultation was obtained, for which the patient underwent renal angiogram which ruled out aneurysm or dissection renal artery. Patient's H&H has been stable. Patient was vital signs have been stable. She now reports that her urine is clear. She will be discharged home and continued on antibiotic therapy with cefdinir 300 mg p.o. twice a day for additional five days. She will follow up with Urology in 2-3 weeks. She was agreeable with discharge plan. All questions answered. Physical examination General: Alert and Oriented x3. No acute distress. Well-nourished. Eyes: EOMI. Anicteric. HENT: Moist mucous membranes. Lungs: Clear to auscultation bilaterally. No accessory muscle use. Cardiovascular: Regular rate and rhythm. No murmur. No JVD. Abdomen: Soft, non-tender and non-distended. No palpable masses. Extremities: No edema. Non-tender. Skin: No rashes or lesions. Warm. Neurologic: No focal neurological deficits. CN II-XII grossly intact, but not individually tested. Psychiatric: Cooperative. Appropriate mood and affect. Total time spent with patient discussing and formulating plan of care: 35 minutes. This medical document was created using an electronic medical record system with [employer] dictation system. Although this document has been carefully reviewed, there may still be some phonetic and typographical errors. These areas are purely typographical due to imperfections of the software programs, and do not reflect any compromise in the patient's medical care. Consults/Reason for consult Urology: Lithotripsy Interventional Radiology: Renal angiogram Operations or Procedures Renal angiogram Lithotripsy with removal percutaneous nephrostomy tube Condition at Discharge: Fair Final Diagnosis/Problems List Obstructive uropathy, nephrolithiasis Secondary Diagnosis: Impression: -complicated cystitis -obstructive uropathy -nephrolithiasis -anemia with postop bleeding Discharge Disposition: Home Discharge Instruct/Medications Diet: Regular Activity: No Restrictions, As Tolerated Follow Up/Referral: Dr. Jiang in 1-2 weeks Medications: Cefdinir 300mg po bid 36 Discharge Statement: "Patient was advised to return to the ER or call 911 if any headaches, dizziness, shortness of breath, chest pain, abdominal pain, bleeding, fevers, or worsening of medical condition. Patient was counseled about treatment plan, medications, possible side effects, patientverbalized understanding. All questions were answered to the best of my ability. This discharge took greater then 30 minutes in planning, reviewing documentation, counseling the patient, and discussing with other team members." ASSESSMENT ASSESSMENT Assessment Obstructive uropathy, nephrolithiasis Date of Service: Jun 02, 2024 Billing Provider: HERNAN LEWIS NP Common Visit Codes: [id number]/OBS DISCH DAY >30min HERNAN LEWIS NP Jun 02, 2024 16:10
== END 2024-06-02 19:25 | disposition home or self-care (01) | DRG 443 ==
LOC: ER 09:47 → OVERFLOW 17:29 → CENTRAL 23:07 → TELE-CENTR 05-31 20:30 → TELE-EAST 06-01 00:36
PROVIDERS: ADMIT Nurse Practitioner Acute Care; ATTEND Nurse Practitioner Acute Care
PROC: 0TC18ZZ Extirpation of Matter from Left Kidney, Via Natural or Artificial Opening Endoscopic (ICD-10-PCS; 2024-05-24)
PROC: 0T9130Z Drainage of Left Kidney with Drainage Device, Percutaneous Approach (ICD-10-PCS; 2024-05-24)
PROC: 30233N1 Transfusion of Nonautologous Red Blood Cells into Peripheral Vein, Percutaneous Approach (ICD-10-PCS; principal; 2024-05-26)
PROC: B41F1ZZ Fluoroscopy of Right Lower Extremity Arteries using Low Osmolar Contrast (ICD-10-PCS; 2024-05-31)
PROC: B4171ZZ Fluoroscopy of Left Renal Artery using Low Osmolar Contrast (ICD-10-PCS; 2024-05-31)
PROC: B417YZZ Fluoroscopy of Left Renal Artery using Other Contrast (ICD-10-PCS; 2024-05-31)
PROC: 0TP5X0Z Removal of Drainage Device from Kidney, External Approach (ICD-10-PCS; 2024-05-31)
DX: N20.0 Calculus of kidney (principal); E44.1 Mild protein-calorie malnutrition; N30.90 Cystitis, unspecified without hematuria; T83.84XA Pain due to genitourinary prosthetic devices, implants and grafts, initial encounter; D62 Acute posthemorrhagic anemia; E11.65 Type 2 diabetes mellitus with hyperglycemia; N13.9 Obstructive and reflux uropathy, unspecified; Z93.6 Other artificial openings of urinary tract status; Z79.899 Other long term (current) drug therapy; Z79.4 Long term (current) use of insulin; Y84.8 Other medical procedures as the cause of abnormal reaction of the patient, or of later complication, without mention of misadventure at the time of the procedure; Y92.89 Other specified places as the place of occurrence of the external cause; Z79.84 Long term (current) use of oral hypoglycemic drugs
CPT/HCPCS: 36252; 36415; 74018; 74176; 74178; 75625; 76000; 76937; 80048; 80053; 81001; 82360; 82962; 83605; 84702; 85014; 85018; 85025; 85610; 85730; 86850; 86900; 86901; 86920; 87040; 87086; 99152; 99153; C1894; G0378; J0330; J1100; J1815; J2250; J2405; J2470; J2704; Q9967